=== PATIENT | male | born 1955 | race Caucasian/White ===

== ENCOUNTER → 2016-08-23 | Outpatient (CLI) | payer OTHER, MEDICARE ==
[~2016-08-23] MED LIST: ALBUTEROL; COUMADIN; DUONEB; GFN600TCR; LEVITRA; LNS30CCR; NS.65NA45; PERFOROMIST; PHN100C; PULMICORT; SYMBICORT; TIOT18CA
--- OUTSIDE RECORDS SUMMARY | 2016-08-23 07:49 | XMS REPORT | Continuity of Care Document ---
Author Author [facility] Organization [facility] Address Unknown Phone Unavailable Care Team Providers Care Senior Cost Analyst Name Role Phone PCP Unavailable Source Comments Some departments are not documenting in the electronic medical record. If you do not see the information that you expected, contact Release of Information in the Health Information Management department at [phone] for further assistance in locating additional records.[facility] Active Allergies and Adverse Reactions Not on [...]
[2016-08-23 08:03] LABS: BASOPHILS # (AUTO) 0.1 10^3/uL (0.0-0.1); BASOPHILS % (AUTO) 1 % (0-10); EOSINOPHILS # (AUTO) 0.4 10^3/uL (0.0-0.3); EOSINOPHILS % (AUTO) 5 % (0-10); LYMPHOCYTES # (AUTO) 1.3 X 10^3 (1.0-4.0); LYMPHOCYTES % (AUTO) 16 % (12-44); MEAN CORPUSCULAR HEMOGLOBIN 31 PG (25-34); MEAN CORPUSCULAR HGB CONC 33 G/DL (32-36); MEAN CORPUSCULAR VOLUME 94 FL (80-99); MEAN PLATELET VOLUME 10.1 FL (7.4-10.4); MONOCYTES # (AUTO) 0.9 X 10^3 (0.0-1.0); MONOCYTES % (AUTO) 11 % (0-12); NEUTROPHILS # (AUTO) 5.4 X 10^3 (1.8-7.8); NEUTROPHILS % (AUTO) 68 % (42-75); PLATELET COUNT 244 10^3/uL (130-400); RED BLOOD COUNT 4.82 10^6/uL (4.35-5.85); RED CELL DISTRIBUTION WIDTH 12.9 % (10.0-14.5)
[2016-08-23 08:34] LABS: ALANINE AMINOTRANSFERASE 44 U/L (0-55); ANION GAP 9 MMOL/L (5-14); ASPARTATE AMINO TRANSFERASE 23 U/L (5-34); BILIRUBIN,TOTAL 0.6 MG/DL (0.1-1.0); BLOOD UREA NITROGEN 20 MG/DL (7-18); BUN/CREATININE RATIO 20; CALCIUM 9.2 MG/DL (8.5-10.1); CARBON DIOXIDE 26 MMOL/L (21-32); CHLORIDE 105 MMOL/L (98-107); CHOLESTEROL 165 MG/DL (< 200); CREATININE SERUM 0.98 MG/DL (0.60-1.30); DIRECT LDL 98 MG/DL (1-129); GFR ESTIMATED > 60; GLUCOSE 96 MG/DL (70-105); POTASSIUM 4.7 MMOL/L (3.6-5.0); SODIUM 140 MMOL/L (135-145); TOTAL PROTEIN 6.8 G/DL (6.4-8.2); TRIGLYCERIDES 86 MG/DL (<150); VLDL CHOLESTEROL 17 MG/DL (5-40)
[2016-08-23 08:55] LABS: THYROID STIMULATING HORMONE 1.13 UIU/ML (0.35-4.94)
== END ==
LOC: LAB 07:46
PROVIDERS: ATTEND Internal Medicine
DX: Z00.00 Encounter for general adult medical examination without abnormal findings (principal); Z51.81 Encounter for therapeutic drug level monitoring; E78.00 Pure hypercholesterolemia, unspecified; E78.1 Pure hyperglyceridemia; Z79.899 Other long term (current) drug therapy
CPT/HCPCS: 36415; 80053; 80061; 80185; 84443; 85025

== ENCOUNTER → 2016-08-23 | Outpatient (CLI) | payer OTHER, MEDICARE ==
--- OUTSIDE RECORDS SUMMARY | 2016-08-23 07:44 | XMS REPORT | Continuity of Care Document ---
Author Author [facility] Organization [facility] Address Unknown Phone Unavailable Care Team Providers Care Application Support Administrator Name Role Phone PCP Unavailable Source Comments Some departments are not documenting in the electronic medical record. If you do not see the information that you expected, contact Release of Information in the Health Information Management department at [phone] for further assistance in locating additional records.[facility] Active Allergies and Adverse Reactions Not on File Current Medications Not on file Active Problems Not on file Social History Tobacco Use Types Packs/Day Years Used Date Never Assessed Plan of Care Health Maintenance Due Date Last Done Comments Physical (Comprehensive) 1961 Exam Pertussis Vaccine 1965 Tetanus Vaccine 10/05/1971 Colorectal Cancer 2004 Screening Shingles Vaccine 2014 Influenza Vaccine 03/15/2016 Results from Last 3 Months Not on file
[2016-08-23 09:01] LABS: BILIRUBIN,DIRECT 0.2 MG/DL (0.0-0.3); BILIRUBIN,INDIRECT 0.4 MG/DL; BILIRUBIN,TOTAL 0.6 MG/DL (0.1-1.0); TOTAL PROTEIN 6.8 G/DL (6.4-8.2)
== END ==
LOC: LAB 07:40
PROVIDERS: ATTEND Physician Assistant
DX: E78.2 Mixed hyperlipidemia (principal)
CPT/HCPCS: 36415; 80061; 80076

== ENCOUNTER 2017-01-16 14:12 | Inpatient (IN) | payer OTHER, MEDICARE ==
[~2017-01-16] VITALS: Ht 172.7 cm; Wt 99.8 kg
[~2017-01-16 14:12] MED LIST changes: -PHN100C; +PHN100C PO
[2017-01-16] MEDS ORDERED: NS IV 1000 ML 1,000 ML IV ONE (14:19)
[2017-01-16 14:29] LABS: BASOPHILS % (AUTO) 0 % (0-10); EOSINOPHILS % (AUTO) 0 % (0-10); LYMPHOCYTES # (AUTO) 1.3 X 10^3 (1.0-4.0); LYMPHOCYTES % (AUTO) 10 % (12-44); MEAN CORPUSCULAR HEMOGLOBIN 30 PG (25-34); MEAN CORPUSCULAR HGB CONC 33 G/DL (32-36); MEAN CORPUSCULAR VOLUME 91 FL (80-99); MEAN PLATELET VOLUME 9.9 FL (7.4-10.4); MONOCYTES # (AUTO) 1.5 X 10^3 (0.0-1.0); MONOCYTES % (AUTO) 12 % (0-12); NEUTROPHILS # (AUTO) 9.6 X 10^3 (1.8-7.8); NEUTROPHILS % (AUTO) 77 % (42-75); PLATELET COUNT 290 10^3/uL (130-400); RED CELL DISTRIBUTION WIDTH 13.2 % (10.0-14.5); WHITE BLOOD COUNT 12.5 10^3/uL (4.3-11.0)
[2017-01-16] MEDS ORDERED: RT-ALBUTEROL/IPRATROPIUM 3 ML (DUONEB) VIAL INH ONE (14:30)
[2017-01-16] MEDS ORDERED: ACETAMINOPHEN 500 MG TAB (TYLENOL) PO PRN (14:30)
[2017-01-16] MEDS ORDERED: methylPREDNISolone 125 MG (Solu-MEDROL) VIAL IV STA (14:41)
[2017-01-16 14:42] LABS: INR 1.1 (0.8-1.4)
[2017-01-16] MEDS ORDERED: RT-ALBUTEROL SULF 2.5 MG/3 ML PRE-MIX VIAL INH STA (14:45)
--- NOTE | 2017-01-16 14:52 | ED Respiratory ---
General Chief Complaint: Respiratory Problems Stated Complaint: SOB Source: patient, EMS Exam Limitations: no limitations (VIDAL STAHL MD) History of Present Illness Time seen by provider: 14:12 Initial Comments Here by EMS from Dr. Harvey's office with report of being found to have an oxygen saturation of 77 percent on room air. Patient is not normally on oxygen. For the last month he has been treated for bronchitis/pneumonia. Patient had a fever of 101 at 's office and was placed on oxygen. Overall improving with oxygen but still requiring 4-5 L via nasal cannula to keep O2 sats greater than 90 percent. Patient reports that he's had chills at night time and sweats as well as the fever during the day. Denies nausea or vomiting. Denies chest pain. States breathing treatments haven't helped much. Last albuterol treatment was at 11 a.m. Timing/Duration: week, getting worse Severity: moderate Prior Episodes/Possible Cause: occasional episodes Modifying Factors: Worse With Activity, Improves With Albuterol Nebulizer, Improves With Oxygen, Improves With Rest Associated Symptoms: cough, fever/chills, shortness of breath, wheezing ( VIDAL STAHL MD) Allergies and Home Medications Allergies Coded Allergies: No Known Drug Allergies (Verified , 10/07/07) Home Medications Guaifenesin 600 Mg Tab, (Reported) Lansoprazole 30 Mg Cap, (Reported) Phenytoin Sodium Extended 100 Mg Capsule, (Reported) Tiotropium Mammoth 18 Mcg Cap.w.dev, (Reported) [Coumadin ] , (Reported) [Coumadin] , (Reported) [Duoneb] , (Reported) [Levitra] , (Reported) [Perforomist] , (Reported) [Pro Air Rescue Inhal] , (Reported) [Pulmicort] , (Reported) Constitutional: see HPI, No chills, No fever EENTM: no symptoms reported Respiratory: see HPI, cough, short of breath, wheezing Cardiovascular: no symptoms reported Gastrointestinal: No abdominal pain, No nausea, No vomiting Genitourinary: no symptoms reported Musculoskeletal: no symptoms reported (VIDAL STAHL MD) All Other Systems Reviewed Negative Unless Noted: Yes (VIDAL STAHL MD) Past Tspiyzm-Qaqugv-Yykymy Hx Patient Social History Alcohol Use: Occasionally Uses Recreational Drug Use: No Smoking Status: Former Smoker Type Used: Cigarettes 2nd Hand Smoke Exposure: No Recent Hopitalizations: No (VIDAL STAHL MD) Surgeries HX Surgeries: Yes (IVC filter) Surgeries: Eye Surgery, Tonsillectomy (VIDAL STAHL MD) Respiratory Hx Respiratory Disorders: Yes (HYPERSENSITIVITY PNUEMONITIS) (VIDAL STAHL MD) Cardiovascular Hx Cardiac Disorders: No Cardiac Disorders: Deep Vein Thrombosis (VIDAL STAHL MD) Neurological Hx Neurological Disorders: Yes Neurological Disorders: Seizure Disorder (VIDAL STAHL MD) Reproductive System Hx Reproductive Disorders: No (VIDAL STAHL MD) Genitourinary Hx Genitourinary Disorders: No (VIDAL STAHL MD) Gastrointestinal Hx Gastrointestinal Disorders: Yes (VIDAL STAHL MD) Musculoskeletal Hx Musculoskeletal Disorders: Yes (VIDAL STAHL MD) Endocrine Hx Endocrine Disorders: No (VIDAL STAHL MD) HEENT HX ENT Disorders: No (VIDAL STAHL MD) Psychosocial Hx Psychiatric Problems: Yes (VIDAL STAHL MD) Blood Transfusions Hx Blood Disorders: Yes (VIDAL STAHL MD) Reviewed Nursing Assessment Reviewed/Agree w Nursing PMH: Yes (VIDAL STAHL MD) Physical Exam Vital Signs Vital Sign - Last 12Hours 01/16/17 01/16/17 14:15 14:18 Temp 99.7 Pulse 100 Resp 20 B/P (MAP) 123/78 Pulse Ox 90 O2 Delivery Nasal Cannula O2 Flow Rate 4.00 FiO2 70 (CHANDA DE LOS SANTOS MD) Vital Signs Capillary Refill : (VIDAL STAHL MD) General Appearance: WD/WN, no apparent distress HEENT: PERRL/EOMI, pharynx normal Neck: full range of motion, supple Respiratory: respiratory distress Cardiovascular: regular rate, rhythm, no murmur Gastrointestinal: non tender, soft Extremities: non-tender, normal inspection Neurologic/Psychiatric: alert, oriented x 3 Skin: normal color, warm/dry (VIDAL STAHL MD) Focused Exam Lactic Acid Level Laboratory Tests Test 01/16/17 14:18 Lactic Acid Level 1.41 MMOL/L (0.50-2.00) (CHANDA DE LOS SANTOS MD) Progress/Results/Core Measures Results/Orders Lab Results Laboratory Tests Test 01/16/17 14:18 01/16/17 16:22 Range/Units White Blood Count 12.5 H 4.3-11.0 10^3/uL Red Blood Count 5.00 4.35-5.85 10^6/uL Hemoglobin 15.0 13.3-17.7 G/DL Hematocrit 46 40-54 % Mean Corpuscular Volume 91 80-99 FL Mean Corpuscular Hemoglobin 30 25-34 PG Mean Corpuscular Hemoglobin Concent 33 32-36 G/DL Red Cell Distribution Width 13.2 10.0-14.5 % Platelet Count 290 130-400 10^3/uL Mean Platelet Volume 9.9 7.4-10.4 FL Neutrophils (%) (Auto) 77 H 42-75 % Lymphocytes (%) (Auto) 10 L 12-44 % Monocytes (%) (Auto) 12 0-12 % Eosinophils (%) (Auto) 0 0-10 % Basophils (%) (Auto) 0 0-10 % Neutrophils # (Auto) 9.6 H 1.8-7.8 X 10^3 Lymphocytes # (Auto) 1.3 1.0-4.0 X 10^3 Monocytes # (Auto) 1.5 H 0.0-1.0 X 10^3 Eosinophils # (Auto) 0.0 0.0-0.3 10^3/uL Basophils # (Auto) 0.0 0.0-0.1 10^3/uL Prothrombin Time 14.0 12.2-14.7 SEC INR Comment 1.1 0.8-1.4 Activated Partial Thromboplast Time 34 24-35 SEC Sodium Level 141 135-145 MMOL/L Potassium Level 3.7 3.6-5.0 MMOL/L Chloride Level 107 98-107 MMOL/L Carbon Dioxide Level 22 21-32 MMOL/L Anion Gap 12 5-14 MMOL/L Blood Urea Nitrogen 14 7-18 MG/DL Creatinine 0.94 0.60-1.30 MG/DL Estimat Glomerular Filtration Rate > 60 BUN/Creatinine Ratio 15 Glucose Level 102 70-105 MG/DL Lactic Acid Level 1.41 0.50-2.00 MMOL/L Calcium Level 9.1 8.5-10.1 MG/DL Total Bilirubin 0.6 0.1-1.0 MG/DL Aspartate Amino Transf (AST/SGOT) 30 5-34 U/L Alanine Aminotransferase (ALT/SGPT) 35 0-55 U/L Alkaline Phosphatase 105 40-136 U/L Total Protein 7.6 6.4-8.2 GM/DL Albumin 3.8 3.2-4.5 GM/DL Urine Color YELLOW Urine Clarity SLIGHTLY CLOUDY Urine pH 5 5-9 Urine Specific Manson 1.015 L 1.016-1.022 Urine Protein 2+ H NEGATIVE Urine Glucose (UA) NEGATIVE NEGATIVE Urine Ketones 1+ H NEGATIVE Urine Nitrite NEGATIVE NEGATIVE Urine Bilirubin NEGATIVE NEGATIVE Urine Urobilinogen NORMAL NORMAL MG/DL Urine Leukocyte Esterase 1+ H NEGATIVE Urine RBC (Auto) NEGATIVE NEGATIVE Urine RBC NONE /HPF Urine WBC 0-2 /HPF Urine Crystals NONE /LPF Urine Bacteria FEW H /HPF Urine Casts NONE /LPF Urine Mucus NEGATIVE /LPF Urine Culture Indicated NO (CHANDA DE LOS SANTOS MD) Medications Given in ED Current Medications Medications Dose Ordered Sig/Whitney Route Start Time Stop Time Status Last Admin Dose Admin Albuterol/ Ipratropium 3 ml ONCE ONCE INH 01/16/17 14:30 01/16/17 14:31 DC 01/16/17 14:28 3 ML Sodium Chloride 1,000 ml @ 0 mls/hr Q0M ONCE IV 01/16/17 14:19 01/16/17 14:22 DC 01/16/17 15:17 0 MLS/HR (CHANDA DE LOS SANTOS MD) Vital Signs/I&O Vital Sign - Last 12Hours 01/16/17 01/16/17 01/16/17 01/16/17 14:15 14:18 14:28 14:57 Temp 99.7 Pulse 100 Resp 20 B/P (MAP) 123/78 Pulse Ox 90 98 92 96 O2 Delivery Nasal Cannula Vapotherm Nasal Cannula Vapotherm O2 Flow Rate 4.00 30.00 5.00 30.00 FiO2 70 70 (CHANDA DE LOS SANTOS MD) Progress Note : Progress Note Seen and evaluated. IV, labs, chest x-ray, blood cultures and lactic acid ordered. Patient on 5 L via nasal cannula. This does keep his O2 sat at 90 percent. Duo neb ordered. Patient is not responding very well to oxygen and DuoNeb. Vapotherm initiated and patient had improvement with 7 percent O2 via high flow 30 L. Albuterol treatment and line ordered. Solu-Medrol 125 mg IV ordered. Monitor patient. Patient and EMS did report that he is wanted to go to [place] but he was presented with the ABN performed by EMS and was concerned that there would be cost for this transfer as she would be bypassing this hospital which is right across the street from his doctor's office. Patient opted to come to this ER which is reasonable. (VIDAL STAHL MD) Departure Communication Progress Notes 1600 accepted patient in transfer from Dr. Stahl. 165 after reviewing chest x-ray which shows a rather marked increase in bilateral markings and given his white count respiratory rate and O2 saturation qualifying for Sirs he is to be admitted. I spoke to Dr. Leos who will be the admitting hospitalist and as his PCP and she concurs. SIRS, Sepsis, and Septic Shock Criteria SIRS Criteria: Temp Over 38.0 deg C (100.4 deg F) or Below 36.0 deg C (96.8 deg F): No Heart Rate Over 90: Yes Respiratory Rate Over 20 or CO2 Partial Pressure Below 32: Yes WBC Over 76148, Below 4000, or More than 10% bands: Yes Sepsis Criteria: Suspected or Present Source of Infection: Yes Severe Sepsis Criteria: Organ Dysfunction, Hypotension, or Hypoperfusion: No Septic Shock Criteria: Severe Sepsis with Hypotension, despite adequate fluid resuscitation: No Multiple Organ Dysfunction Syndrome Criteria: Evidence of 2 or More Organs Failing: No Meets Sepsis Criteria. Follow Sepsis Guidelines (CHANDA DE LOS SANTOS MD) Impression Impression: Primary Impression: sepsis/pneumonitis with hypoxia Disposition: ADMITTED INPATIENT Condition: Improved Decision to Admit Reason: Admit from ER (General) Decision to Admit/Date: Jan 16, 2017 Time/Decision to Admit Time: 17:03 (CHANDA DE LOS SANTOS MD) Departure-Patient Inst. Referrals: SHAKIRA LEOS DO (PCP/Family) Primary Care Physician VIDAL STAHL MD Jan 16, 2017 14:51 CHANDA DE LOS SANTOS MD Jan 16, 2017 17:00
[2017-01-16 14:54] LABS: ALANINE AMINOTRANSFERASE 35 U/L (0-55); ALBUMIN 3.8 GM/DL (3.2-4.5); ANION GAP 12 MMOL/L (5-14); ASPARTATE AMINO TRANSFERASE 30 U/L (5-34); BILIRUBIN,TOTAL 0.6 MG/DL (0.1-1.0); BLOOD UREA NITROGEN 14 MG/DL (7-18); BUN/CREATININE RATIO 15; CALCIUM 9.1 MG/DL (8.5-10.1); CARBON DIOXIDE 22 MMOL/L (21-32); CHLORIDE 107 MMOL/L (98-107); CREATININE SERUM 0.94 MG/DL (0.60-1.30); GFR ESTIMATED > 60; GLUCOSE 102 MG/DL (70-105); POTASSIUM 3.7 MMOL/L (3.6-5.0); SODIUM 141 MMOL/L (135-145); TOTAL PROTEIN 7.6 GM/DL (6.4-8.2)
--- NOTE | 2017-01-16 16:21 | Diagnostic Imaging Report ---
INDICATION: Respiratory distress. EXAMINATION: PA and lateral chest. FINDINGS: There is coarse interstitial thickening in both lungs which is new since 08/09/2014. The heart size and pulmonary vascularity are normal. There are no consolidating alveolar infiltrates. There are no effusions or pneumothoraces. IMPRESSION: Coarse thickening of the interstitium in the lungs which could be inflammatory. Dictated by: Dictated on workstation # [id number]
[2017-01-16 16:27] LABS: BILIRUBIN,URINE NEGATIVE (NEGATIVE); KETONES,URINE 1+ (NEGATIVE); LEUKOCYTE ESTERASE ,URINE 1+ (NEGATIVE); NITRITE,URINE NEGATIVE (NEGATIVE); PH,URINE 5 (5-9); PROTEIN,URINE 2+ (NEGATIVE); UROBILINOGEN,URINE NORMAL (NORMAL)
[2017-01-16 16:35] LABS: WBC,URINE 0-2 /HPF
[2017-01-16 18:15] VITALS: BP 137/77
--- OUTSIDE RECORDS SUMMARY | 2017-01-16 18:19 | XMS REPORT | Continuity of Care Document ---
Author Author [facility] Organization [facility] Address Unknown Phone Unavailable Care Team Providers Care Solution Make Up Operator Name Role Phone PCP Unavailable Source Comments Some departments are not documenting in the electronic medical record. If you do not see the information that you expected, contact Release of Information in the Health Information Management department at [phone] for further assistance in locating additional records.[facility] Active Allergies and Adverse Reactions Not on File Current Medications Not on file Active Problems Not on file Social History Tobacco Use Types Packs/Day Years Used Date Never Assessed Plan of Care Health Maintenance Due Date Last Done Comments Hepatitis C Screening 1955 Physical (Comprehensive) 1961 Exam Pertussis Vaccine 1965 Tetanus Vaccine 10/05/1971 Colorectal Cancer 2004 Screening Shingles Vaccine 2014 Influenza Vaccine 03/15/2017 Results from Last 3 Months Not on file
--- OUTSIDE RECORDS SUMMARY | 2017-01-16 18:20 | XMS REPORT ---
Author Author LESLIE RAMIREZ [facility] [employer] Address Unknown Phone Unavailable Care Team Providers Care Actuarial Intern Name Role Phone LESLIE RAMIREZ CP Unavailable Allergies No Known Allergies Problems Problem Type Condition Code Onset Dates Condition Status Assessment Dysthymic disorder F34.1 Active Problem Dysthymic disorder F34.1 Active Medications No Known Medications Procedures Procedure Coding System Code Date Psychotherapy, patient &/family, 45 minutes, established patient CPT-4 51349 January 25, 2016 Results No Known Results Summary Purpose [employer] Submission
--- OUTSIDE RECORDS SUMMARY | 2017-01-16 18:20 | XMS REPORT ---
Author Author JESSICA MARTELL Organization [employer] Address Unknown Phone Unavailable Care Team Providers Care Drying And Winding Supervisor Name Role Phone JESSICA MARTELL Unavailable Allergies No Known Allergies Problems Problem Type Condition ICD-9 Code Onset Dates Condition Status Assessment Dysthymic disorder 300.4 Active Problem Dysthymic disorder 300.4 Active Medications No Known Medications Procedures Procedure Coding System Code Date Psychotherapy, patient &/family, 45 minutes, established patient CPT-4 76574 Mar 17, 2015 Results No Known Results Summary Purpose [employer] Submission
--- OUTSIDE RECORDS SUMMARY | 2017-01-16 18:20 | XMS REPORT ---
Author Author LESLIE RAMIREZ [facility] [employer] Address Unknown Phone Unavailable Care Team Providers Care Brokerage Coordinator Name Role Phone LESLIE RAMIREZ CP Unavailable Allergies No Known Allergies Problems Problem Type Condition Code Onset Dates Condition Status Assessment Dysthymic disorder F34.1 Active Problem Dysthymic disorder F34.1 Active Medications No Known Medications Procedures Procedure Coding System Code Date Psychotherapy, patient &/family, 45 minutes, established patient CPT-4 35248 Aug 04, 2015 Results No Known Results Summary Purpose [employer] Submission
--- OUTSIDE RECORDS SUMMARY | 2017-01-16 18:20 | XMS REPORT | Clinical Summary ---
Author Author User, [employer] [facility] Address Unknown Phone Unavailable Allergies, Adverse Reactions, Alerts Allergy Name Reaction Description Start Date Severity Status Provider No Known Allergies Edwin Johnson Conditions or Problems Problem Name Problem Code Onset Date Status Entry Date Provider Comment Standard Description Annotate ASTHMA 493.9 Correction Paula Mayorga Asthma, unspecified PNEUMONIA 486 Resolved Paula Mayorga Pneumonia, organism unspecified HEALTH SCREENING V70.0 Resolved Paula Mayorga Routine general medical examination at a health care facility SEIZURE 780.3 Resolved Paula Mayorga Convulsions SMOKER 305.1 Resolved Paula Mayorga Tobacco use disorder WHEEZING 786.07 Resolved Paula Mayorga Wheezing CHRONIC AIRWAY OBSTRUCTION (COPD) 496 Active Paula Mayorga Chronic airway obstruction, not elsewhere classified ASTHMA, CHRN OBST W/(ACUTE) EXACERBATION 493.22 Resolved Paula Mayorga Chronic obstructive asthma, with (acute) exacerbation HEMOPTYSIS 786.3 Resolved Paula Mayorga Hemoptysis VACCINE AGAINST STREPTOCOCCUS PNEUMONIAE V03.82 Resolved Paula Mayorga Need for prophylactic vaccination against Streptococcus pneumoniae [pneumococcus] FEVER 780.6 Resolved Paula Mayorga Fever and other physiologic disturbances of temperature regulation HISTORY OF TOBACCO ABUSE V15.82 Active Paula Mayorga Personal history of tobacco use COMPLICATION, RESPIRATORY 997.3 Resolved Paula Mayorga Respiratory complications, not elsewhere classified GRAND MAL SEIZURE 345.10 Resolved Paula Mayorga Generalized convulsive epilepsy, without mention of intractable epilepsy OCCUPATIONAL ASTHMA 505 Resolved Paula Mayorga Pneumoconiosis, unspecified LEG PAIN, LEFT 729.5 Active Paula Mayorga Pain in limb EDEMA LEG 782.3 Active Paula Mayorga Edema DVT 453.40 Active Paula Mayorga Acute venous embolism and thrombosis of unspecified deep vessels of lower extremity FEVER 780.6 Resolved Paula Mayorga Fever and other physiologic disturbances of temperature regulation COUMADIN THERAPY V58.61 Resolved Paula Mayorga Long-term (current) use of anticoagulants TESTOSTERONE DEFICIENCY 257.2 Resolved Paula Mayorga Other testicular hypofunction FEVER 780.6 Resolved Paula Mayorga Fever and other physiologic disturbances of temperature regulation DIARRHEA, ACUTE 787.91 Resolved Paula Mayorga Diarrhea HYPERGLYCEMIA, MILD 790.6 Resolved Paula Mayorga Other abnormal blood chemistry HYPERCHOLESTEROLEMIA 272.0 Active Paula Mayorga Pure hypercholesterolemia HEALTH SCREENING V70.0 Resolved Paula Mayorga Routine general medical examination at a health care facility SINUSITIS, SPHENOIDAL, ACUTE 461.3 Resolved Paula Mayorga Acute sphenoidal sinusitis HYPERTENSION 401.1 Active Paula Mayorga Benign essential hypertension OLECRANON BURSITIS, RIGHT 726.33 Resolved Paula Mayorga Olecranon bursitis TRANSAMINASES, SERUM, ELEVATED 790.4 Resolved Paula Mayorga Nonspecific elevation of levels of transaminase or lactic acid dehydrogenase [LDH] CHRONIC VENOUS HYPERTENSION WITHOUT COMPS 459.30 Active Paula Mayorga Chronic venous hypertension without complications ALLERGIC RHINITIS, SEASONAL 477.0 Resolved Paula Mayorga Allergic rhinitis due to pollen VENTRICULAR HYPERTROPHY, LEFT 429.3 Active Paula Mayorga Cardiomegaly SEIZURE DISORDER, GENERALIZED 780.39 Active Paula Mayorga Other convulsions CELLULITIS AND ABSCESS OF ORAL SOFT TISSUES 528.3 Resolved 12/18 Paula Mayorga Cellulitis and abscess of oral soft tissues BACK PAIN, THORACIC REGION 724.1 Resolved Paula Mayorga Pain in thoracic spine SEBACEOUS CYST, INFECTED 706.2 Resolved Paula Mayorga Sebaceous cyst Medication List Medication Instructions Start Date Stop Date Generic Name NDC Status Provider Patient Instruction VIAGRA 100 MG TABS 1 po prn SILDENAFIL CITRATE [id number] No Longer Active Paula Mayorga ANDROGEL PUMP 20.25 MG/ACT (1.62%) GEL 2 pumps rubbed into skin daily TESTOSTERONE 88860581954 Active Paula Mayorga SPIRIVA HANDIHALER 18 MCG CAPS 1 inhalation daily. TIOTROPIUM BROMIDE MONOHYDRATE 01439655189 Active Paula Mayorga [facility] FISH OIL 1200 MG CPDR 1 PO daily OMEGA-3 FATTY ACIDS 94035888375 Active Paula Mayorga WARFARIN SODIUM 6 MG TABS 1 PO Daily, on Tuesdays and Fridays take with 1 mg to add up to 7mg. WARFARIN SODIUM 93731349497 No Longer Active Paula Mayorga JANTOVEN 6 MG TABS 1 PO daily WARFARIN SODIUM 82028004463 No Longer Active Paula Mayorga ORABASE/KENALOG apply to affected area QID for 7 days ORABASE/KENALOG No Longer Active Paulaoscar Mayorga NORVASC 10 MG TAB 1 PO QD AMLODIPINE BESYLATE 04613500862 Active Paula Mayorga FLONASE 50 MCG/DOSE INHALANT 2 puffs each nostril daily FLONASE 50 MCG/DOSE INHALANT Active Odlays Harman TRIAMCINOLONE ACETONIDE 0.025 % CREA apply daily prn sparingly to affected area TRIAMCINOLONE ACETONIDE (TOP) 72558106026 Active Paulaoscar Mayorga LORTAB 5 5-500 MG TABS 1 to 2 PO Q6hrs prn ACETAMINOPHEN-HYDROCODONE 14125371209 No Longer Active Paula Mayorga SINGULAIR 10 MG TABS 1 PO QD MONTELUKAST SODIUM 24234864756 Active Paula Mayorga NAPROXEN 500 MG TAB 1 PO BID NAPROXEN 59810967100 No Longer Active Paula Mayorga CIPRO 500 MG TAB 1 PO BID for 10 days CIPROFLOXACIN HCL 57549051443 No Longer Active Paula Mayorga ALBUTEROL 90 MCG/ACT AERS 2 puffs Q4-6hrs prn ALBUTEROL 67432848549 No Longer Active Paula Mayorga SUDAFED 30 MG TAB 1 po q 6 hrs prn nasal congestion PSEUDOEPHEDRINE HCL 17790741183 No Longer Active Paula Mayorga AMOXICILLIN 500 MG CAP 1 PO TID AMOXICILLIN 26625062400 No Longer Active Paula BENEDICT'Ochoa NASAL SPRAY (DEXAMETHASONE, GENTAMICIN, SALINE) 2 puffs each nostril TID for [address] ERVIN NASAL SPRAY ( DEXAMETHASONE, GENTAMICIN, SALINE) No Longer Active Paula Mayorga OMEPRAZOLE 20 MG CPDR 1 PO daily OMEPRAZOLE 92002558136 Active Paula Amber Mayorga LEVITRA 20 MG TABS 1 PO PRN VARDENAFIL HCL 10040398560 No Longer Active Paula Amber Mayorga PROAIR HFA 108 (90 BASE) MCG/ACT AERS 2 puffs Q 4 hrs prn ALBUTEROL SULFATE 62794321888 Active Paula Amber Mayorga DILANTIN 100 MG CAPS 4 tabs po QOD and 3 tabs on alternate days PHENYTOIN SODIUM EXTENDED 88908986069 Active Paula Amber Mayorga PREVACID 30 MG CPDR 1 PO daily LANSOPRAZOLE 93037951751 No Longer Active Paula Amber Mayorga COUMADIN 6 MG TABS 6mg everyday but 7mg on . and Sat. WARFARIN SODIUM 71115702582 No Longer Active Paula Amber Mayorga PULMICORT 1 MG/2ML SUSP One neb treatment BID BUDESONIDE (INHALATION) 34141465755 Active Paula Amber Mayorga LOVENOX 100 MG/ML SOLN 1 injection BID (on hold) ENOXAPARIN SODIUM 09068263357 No Longer Active Paula Amber Mayorga PERFOROMIST 20 MCG/2ML NEBU 1 Puff BID FORMOTEROL FUMARATE 14079825760 Active Paula Amber Mayorga COUMADIN 7.5 MG TABS 1 po QOD alternating with 6 mg. WARFARIN SODIUM 71021015352 No Longer Active Paula Amber Mayorga PREDNISONE 10 MG TABS take 3 tabs po x 5 days, then take 2 tabs po x 5 days, then one daily x 5 days PREDNISONE 71276176994 No Longer Active Paula Amber Mayorga AVELOX 400 MG TABS 1 po daily x 10 days MOXIFLOXACIN HCL 83744948038 No Longer Active Paula Amber Mayorga MUCINEX 600 MG TB12 2 po BID GUAIFENESIN 17557041525 Active Paula Amber Mayorga PREDNISONE 20 MG TABS 2 po daily x 10 days PREDNISONE 21461994008 No Longer Active Paula Mayorga ZITHROMAX 250 MG TABS 2 tabs po the first day, then 1 po x 4 days AZITHROMYCIN 85299221142 No Longer Active Paula Mayorga PREDNISONE 20 MG TAB TID x 5 days, BID x 5 days, and QD x 5 days. PREDNISONE 13422172721 No Longer Active Paula Mayorga AUGMENTIN 875-125 MG TAB 1 PO BID for 10 days AMOXICILLIN-POT CLAVULANATE 18959461403 No Longer Active Carlos A [place] SYMBICORT INHALER 2 PUFFS BID SYMBICORT INHALER No Longer Active Paula Mayorga CHANTIX 1 MG TABS 1 po BID VARENICLINE TARTRATE 53197016736 No Longer Active Paula Mayorga ADVAIR DISKUS 250-50 MCG/DOSE MISC 1 Puff BID FLUTICASONE- SALMETEROL 55524666459 No Longer Active Paula Mayorga VICODIN 5-500 MG TABS 1-2 tabs po q 4-6 hrs. prn HYDROCODONE- ACETAMINOPHEN 34310358701 No Longer Active Paula Mayorga NAPROXEN 500 MG TABS 1 po BID NAPROXEN 01318822060 No Longer Active Paula Mayorga NEBULIZER MACHINE W/COMPONENTS as directed NEBULIZER MACHINE W/COMPONENTS No Longer Active Paula Mayorga DUONEB 2.5-0.5 MG/3ML SOLN 1 treatment QID (on hold) ALBUTEROL -IPRATROPIUM 52128069444 Active Odalys Harman CODICLEAR DH 5-100 MG/5ML SYRP 5 cc Po Q4-6prn HYDROCODONE-GUAIFENESIN 96724727528 No Longer Active Paula Mayorga PREDNISONE 20 MG TAB 3 PO daily for 5 days, 2 PO daily for 5 days, 1 PO daily for 5 days PREDNISONE 03039296684 No Longer Active Paula Amber Mayorga LEVAQUIN 500 MG TABS 1 po daily x 14 days LEVOFLOXACIN 56455941072 No Longer Active Paula Amber Mayorga VANTIN 100 MG TABS 1 PO BID CEFPODOXIME PROXETIL 89690425222 No Longer Active Paula Amber Mayorga CIPRO 500 MG TAB 1 PO BID CIPROFLOXACIN HCL 43209449216 No Longer Active Paula Amber Mayorga AUGMENTIN 875-125 MG TABS 1 po BID x 10 days AMOXICILLIN-POT CLAVULANATE 40007989771 No Longer Active Paula Amber Mayorga LEVAQUIN 500 MG TAB 1 PO QD for 7 days LEVOFLOXACIN 00949283119 No Longer Active Paula Mayorga PREDNISONE 20 MG TAB 3 PO daily for 3 days, 2 PO daily for 3 days, 1 PO daily for 3 days PREDNISONE 38085932660 No Longer Active Paula Mayorga Immunizations Vaccine Administration Date Value Standard Description Influenza vaccine given done influenza virus vaccine, unspecified formulation Influenza vaccine given done influenza virus vaccine, unspecified formulation Influenza vaccine given Done influenza virus vaccine, unspecified formulation dT (Diphtheria and Tetanus) booster given [facility] Td( adult) unspecified formulation Vital Signs Date Name Value Unit Range Description blood pressure, diastolic - 8462-4 76 mm[Hg] BP carrillo blood pressure, systolic - 8480-6 142 mm[Hg] BP sys pulse rate E&M - 8867-4 68 /min Heart rate respiratory rate E&M - 9279-1 14 /min Resp rate weight E&M - 3141-9 229 [lb_av] Weight Measured blood pressure, diastolic - 8462-4 94 mm[Hg] BP carrillo blood pressure, systolic - 8480-6 152 mm[Hg] BP sys pulse rate E&M - 8867-4 72 /min Heart rate respiratory rate E&M - 9279-1 14 /min Resp rate weight E&M - 3141-9 235 [lb_av] Weight Measured Diagnostic Results Date Name Value Unit Range Description Clinical Lists Update: CBc,CMP,FLP - Chemistry Estimated Glomerular Filtration Rate (calc) >60 mL/min/1.73m2 glucose, plasma fasting 95 mg/dL albumin, serum 4.0 g/dL alkaline phosphatase, serum 78 U/L urea nitrogen, blood 15 mg/dL calcium, serum 9.8 mg/dL chloride, serum 105 mmol/L cholesterol, serum 201 mg/dL very low density lipoproteins 18 mg/dL sodium, serum 142 mmol/L triglyceride, serum, fasting 91 mg/dL bilirubin, serum, total 0.4 mg/dL alanine aminotransferase (SGPT), serum 58 U/L aspartate aminotransferase (SGOT), serum 27 U/L protein, total, serum 7.3 g/dL potassium, serum 4.8 mmol/L LDL cholesterol, serum 126 mg/dL HDL cholesterol, serum 56 mg/dL creatinine, serum 0.91 mg/dL carbon dioxide, venous blood 26 mmol/L Clinical Lists Update: CBc,CMP,FLP - Hematology hemoglobin, blood 14.9 g/dL platelet count 270 10*3/mm3 erythrocyte (RBC) count 4.76 10*6/mm3 leukocyte count, blood 9.2 10*3/mm3 mean corpuscular volume, RBC 93 fL red blood cell distribution width 12.6 % hematocrit, blood 44 % Clinical Lists Update: CMP,FLP,TSH,DILANTIN - Chemistry Estimated Glomerular Filtration Rate (calc) >60 mL/min/1.73m2 glucose, plasma fasting 96 mg/dL very low density lipoproteins 23 mg/dL sodium, serum 141 mmol/L triglyceride, serum, fasting 117 mg/dL bilirubin, serum, total 0.6 mg/dL alanine aminotransferase (SGPT), serum 44 U/L aspartate aminotransferase (SGOT), serum 25 U/L protein, total, serum 7.7 g/dL potassium, serum 4.7 mmol/L LDL cholesterol, serum 115 mg/dL thyroid stimulating hormone, serum 1.03 u[iU]/mL HDL cholesterol, serum 49 mg/dL creatinine, serum 1.15 mg/dL carbon dioxide, venous blood 27 mmol/L cholesterol, serum 187 mg/dL chloride, serum 106 mmol/L calcium, serum 9.8 mg/dL urea nitrogen, blood 18 mg/dL alkaline phosphatase, serum 71 U/L albumin, serum 4.2 g/dL Clinical Lists Update: CMP,FLP,TSH,DILANTIN - Toxicology phenytoin level, serum 9.4 ug/mL Clinical Lists Update: [facility] 10-06-14 - Chemistry anion gap, serum 12 sodium, serum 140 mmol/L bilirubin, serum, total 0.4 mg/dL alanine aminotransferase (SGPT), serum 48 U/L aspartate aminotransferase (SGOT), serum 30 U/L protein, total, serum 7.1 g/dL potassium, serum 4.5 mmol/L bilirubin, serum, direct 0.1 mg/dL creatinine, serum 1.1 mg/dL carbon dioxide, venous blood 30.0 mmol/L cholesterol, serum 184 mg/dL chloride, serum 103 mmol/L calcium, serum 9.7 mg/dL urea nitrogen, blood 18 mg/dL alkaline phosphatase, serum 75 U/L albumin, serum 4.5 g/dL Estimated Glomerular Filtration Rate (calc) 70 mL/min/1.73m2 glucose, plasma fasting 95 mg/dL Clinical Lists Update: [facility] 10-06-14 - Hematology mean corpuscular volume, RBC 98 fL leukocyte count, blood 10.4 10*3/mm3 erythrocyte (RBC) count 4.86 10*6/mm3 platelet count 260 10*3/mm3 hemoglobin, blood 15.0 g/dL hematocrit, blood 48 % red blood cell distribution width 14.2 % Encounters Code Encounter Date Provider Facility CPT-78699 Ofc Vst, Est Level III 11:05:16 CDT Paula Mayorga DO, FACP CPT-14323 Ofc Vst, Est Level III 20:42:43 CDT Paula Mayorga DO, FACP CPT-50889 Ofc Vst, Est Level III 16:50:33 CDT Paula Mayorga DO, FACP CPT-37399 Ofc Vst, Est Level III 14:15:15 CDT Paula Mayorga DO, FACP CPT-57274 Ofc Vst, Est Level III 14:48:54 CDT Paula Mayorga DO, FACP CPT-85999 Ofc Vst, Est Level IV 10:47:13 CDT Paula Amber Mayorga Paula S Mayorga, DO, FACP CPT-39683 Ofc Vst, Est Level IV 10:35:10 [employer] Paulaoscar Packer Tierra, DO, FACP CPT-33387 Ofc Vst, Est Level IV 10:27:26 CDT Paula Packer Tierra, DO, FACP CPT-53673 Ofc Vst, Est Level IV 11:16:27 CDT Paulaoscar Packer Tierra, DO, FACP CPT-44748 Ofc Vst, Est Level IV 15:04:06 CDT Paulaoscar Packer Tierra, DO, FACP CPT-81346 Ofc Vst, Est Level IV 10:39:16 [employer] Paula Packer Tierra, DO, FACP CPT-93984 Ofc Vst, Est Level IV 09:59:13 CDT Paulaoscar Packer Tierra, DO, FACP CPT-62305 Ofc Vst, Est Level IV 15:55:14 CDT Paulaoscar Packer Tierra, DO, FACP CPT-59485 Ofc Vst, Est Level IV 14:47:27 CDT Odalys [facility] CPT-04133 Ofc Vst, Est Level IV 14:15:47 [employer] Paulaoscar Clark [facility] CPT-15882 Ofc Vst, Est Level IV 14:53:22 CDT Paulaoscar Mayorga [facility] CPT-94569 Ofc Vst, Est Level III 14:10:19 CDT Paulaoscar Packer Tierra, DO, FACP CPT-16974 Ofc Vst, Est Level IV 16:36:07 CDT Paulaoscar Packer Tierra, DO, FACP CPT-73539 Ofc Vst, Est Level V 15:14:01 CDT Paulaoscar Packer Mayorga, DO, FACP CPT-18244 Ofc Vst, Est Level IV 10:25:35 [employer] Paula Packer Mayorga, DO, FACP CPT-55239 Ofc Vst, Est Level IV 15:17:28 [employer] Paula Packer Tierra, DO, FACP CPT-62101 Ofc Vst, Est Level V 16:24:05 [employer] Paula Mayorga [facility] CPT-54979 Ofc Vst, Est Level IV 11:15:57 [employer] Paula Packer Tierra, DO, FACP CPT-09890 Ofc Vst, Est Level IV 11:40:27 CDT Paula Packer Tierra, DO, FACP CPT-76864 Ofc Vst, Est Level IV 10:16:21 CDT Paula Amber Packer Tierra, DO, FACP CPT-96444 Ofc Vst, Est Level IV 09:46:44 CDT Paula Amber Packer Tierra, DO, FACP CPT-44002 Ofc Vst, Est Level IV 09:35:25 CDT Paulaoscar Packer Tierra, DO, FACP CPT-00369 Ofc Vst, Est Level III 16:03:27 CDT Paulaoscar Packer Tierra, DO, FACP CPT-85306 Ofc Vst, Est Level IV 12:04:03 CDT Paula Amber Packer Tierra, DO, FACP CPT-73812 Ofc Vst, Est Level IV 11:26:02 CDT Paulaoscar Packer Tierra, DO, FACP CPT-88993 Ofc Vst, Est Level IV 09:39:06 [employer] Paula Packer Tierra, DO, FACP CPT-16839 Ofc Vst, Est Level IV 09:44:42 CDT Paula Amber Rahmanner Paula Ochoa Mayorga, DO, FACP CPT-44531 Ofc Vst, Est Level IV 09:49:54 CDT Paula Amber Rahmanner Paula S Mayorga, DO, FACP CPT-80682 Ofc Vst, Est Level IV 09:57:12 CDT Paula Amber Mayorga Paula Ochoa Mayorga, DO, FACP CPT-02924 Ofc Vst, Est Level III 11:58:15 CDT Paula Ambercharlene Mayorga [facility] CPT-01903 Ofc Vst, Est Level IV 11:15:16 CDT Paula Ambercharlene Mayorga [facility] CPT-21271 Ofc Vst, Est Level IV 09:27:29 CDT Paula Amber Mayorga [facility] CPT-88811 Ofc Vst, Est Level IV 10:07:19 CDT Paula Ambercharlene Mayorga [facility] CPT-14480 Ofc Vst, Est Level IV 15:02:40 CDT Paula Amber Mayorga [facility] CPT-96930 Ofc Vst, Est Level IV 16:32:27 CDT Paula Amber Mayorga [facility] CPT-54035 Ofc Vst, Est Level IV 16:23:58 CDT [facility] Amber Mayorga [facility] CPT-48772 Ofc Vst, New Level IV 16:09:53 CDT [facility] Amber Mayorga [facility] Procedures Code Procedure Name Date Entry Date Standard Description CPT-50143 Preventive, Est, (40-64) 20:16:03 [employer] CPT-G8445 E-Prescribing Not sent due to no medication given 16:50: 33 CDT CPT-G8445 E-Prescribing Not sent due to no medication given 14:53: 01 [employer] CPT-G8445 E-Prescribing Not sent due to no medication given 14:15: 15 CDT CPT-63124 Administration of 1st dose vaccine 15:02:40 CDT CPT-25860 Injection, Pneumovax 15:02:40 CDT
--- OUTSIDE RECORDS SUMMARY | 2017-01-16 18:23 | XMS REPORT ---
Author Author LESLIE RAMIREZ [facility] e[employer] Address Unknown Phone Unavailable Care Team Providers Care Breaker Tender Name Role Phone LESLIE RAMIREZ CP Unavailable Allergies No Known Allergies Problems Problem Type Condition Code Onset Dates Condition Status Assessment Dysthymic disorder F34.1 Active Problem Dysthymic disorder F34.1 Active Medications No Known Medications Procedures Procedure Coding System Code Date Psychotherapy, patient &/family, 45 minutes, established patient CPT-4 79217 May 31, 2016 Results No Known Results Summary Purpose eClinical[employer] Submission
--- OUTSIDE RECORDS SUMMARY | 2017-01-16 18:23 | XMS REPORT ---
Author Author LESLIE RAMIREZ [facility] e[employer] Address Unknown Phone Unavailable Care Team Providers Care Web Developer Programmer Name Role Phone LESLIE RAMIREZ CP Unavailable Allergies No Known Allergies Problems Problem Type Condition Code Onset Dates Condition Status Assessment Dysthymic disorder F34.1 Active Problem Dysthymic disorder F34.1 Active Medications No Known Medications Procedures Procedure Coding System Code Date Psychotherapy, patient &/family, 45 minutes, established patient CPT-4 00401 Jun 24, 2015 Results No Known Results Summary Purpose eClinicalWorks Submission
--- OUTSIDE RECORDS SUMMARY | 2017-01-16 18:23 | XMS REPORT | Clinical Summary ---
Author Author User, [employer] Organization Replaced By [facility] [place] Address Unknown Phone Unavailable Allergies, Adverse Reactions, [...] MG TABS 1 po prn SILDENAFIL CITRATE [id number] No Longer Active Paula Mayorga ANDROGEL PUMP 20.25 MG/ACT (1.62%) GEL 2 pumps rubbed into skin daily TESTOSTERONE 67482141954 Active Paula Mayorga SPIRIVA HANDIHALER 18 MCG CAPS 1 inhalation daily. TIOTROPIUM BROMIDE MONOHYDRATE 80741379710 Active Paula Mayorga [facility] FISH OIL 1200 MG CPDR 1 PO daily OMEGA-3 FATTY ACIDS 17522582217 Active Paula Mayorga WARFARIN SODIUM 6 MG TABS 1 PO Daily, on Tuesdays and Fridays take with 1 mg to add up to 7mg. WARFARIN SODIUM 79080350426 No Longer Active Paula Mayorga JANTOVEN 6 MG TABS 1 PO daily WARFARIN SODIUM 49017467175 No Longer Active Paula Mayorga ORABASE/KENALOG apply to affected area QID for 7 days ORABASE/KENALOG No Longer Active Paulaoscar Mayorga NORVASC 10 MG TAB 1 PO QD AMLODIPINE BESYLATE 66249877630 Active Paula Mayorga FLONASE 50 MCG/DOSE INHALANT 2 puffs each nostril daily FLONASE 50 MCG/DOSE INHALANT Active Odalys Harman TRIAMCINOLONE ACETONIDE 0.025 % CREA apply daily prn sparingly to affected area TRIAMCINOLONE ACETONIDE (TOP) 81705319257 Active Paulaoscar Mayorga LORTAB 5 5-500 MG TABS 1 to 2 PO Q6hrs prn ACETAMINOPHEN-HYDROCODONE 42240436409 No Longer Active Paula Mayorga SINGULAIR 10 MG TABS 1 PO QD MONTELUKAST SODIUM 98250582433 Active Paula Mayorga NAPROXEN 500 MG TAB 1 PO BID NAPROXEN 53470948476 No Longer Active Paula Mayorga CIPRO 500 MG TAB 1 PO BID for 10 days CIPROFLOXACIN HCL 98295120910 No Longer Active Paula Mayorga ALBUTEROL 90 MCG/ACT AERS 2 puffs Q4-6hrs prn ALBUTEROL 08498578630 No Longer Active Paula Mayorga SUDAFED 30 MG TAB 1 po q 6 hrs prn nasal congestion PSEUDOEPHEDRINE HCL 64741359594 No Longer Active Paula Mayorga AMOXICILLIN 500 MG CAP 1 PO TID AMOXICILLIN 60379282855 No Longer Active Paula BENEDICT'Ochoa NASAL SPRAY (DEXAMETHASONE, GENTAMICIN, SALINE) 2 puffs each nostril TID for [address] ERVIN NASAL SPRAY ( DEXAMETHASONE, GENTAMICIN, SALINE) No Longer Active Paula Mayorga OMEPRAZOLE 20 MG CPDR 1 PO daily OMEPRAZOLE 43182013812 Active Paula Amber Mayorga LEVITRA 20 MG TABS 1 PO PRN VARDENAFIL HCL 53230579378 No Longer Active Paula Amber Mayorga PROAIR HFA 108 (90 BASE) MCG/ACT AERS 2 puffs Q 4 hrs prn ALBUTEROL SULFATE 89190171846 Active Paula Amber Mayorga DILANTIN 100 MG CAPS 4 tabs po QOD and 3 tabs on alternate days PHENYTOIN SODIUM EXTENDED 58384124804 Active Paula Amber Mayorga PREVACID 30 MG CPDR 1 PO daily LANSOPRAZOLE 26089821462 No Longer Active Paula Amber Mayorga COUMADIN 6 MG TABS 6mg everyday but 7mg on . and Sat. WARFARIN SODIUM 79742009677 No Longer Active Paula Amber Mayorga PULMICORT 1 MG/2ML SUSP One neb treatment BID BUDESONIDE (INHALATION) 30487106395 Active Paula Amber Mayorga LOVENOX 100 MG/ML SOLN 1 injection BID (on hold) ENOXAPARIN SODIUM 81667626132 No Longer Active Paula Amber Mayorga PERFOROMIST 20 MCG/2ML NEBU 1 Puff BID FORMOTEROL FUMARATE 35646399660 Active Paula Amber Mayorga COUMADIN 7.5 MG TABS 1 po QOD alternating with 6 mg. WARFARIN SODIUM 71807270426 No Longer Active Paula Amber Mayorga PREDNISONE 10 MG TABS take 3 tabs po x 5 days, then take 2 tabs po x 5 days, then one daily x 5 days PREDNISONE 55240491603 No Longer Active Paula Amber Mayorga AVELOX 400 MG TABS 1 po daily x 10 days MOXIFLOXACIN HCL 53271112430 No Longer Active Paula Amber Mayorga MUCINEX 600 MG TB12 2 po BID GUAIFENESIN 75708597851 Active Paula Amber Mayorga PREDNISONE 20 MG TABS 2 po daily x 10 days PREDNISONE 58724950919 No Longer Active Paula Mayorga ZITHROMAX 250 MG TABS 2 tabs po the first day, then 1 po x 4 days AZITHROMYCIN 10189555919 No Longer Active Paula Mayorga PREDNISONE 20 MG TAB TID x 5 days, BID x 5 days, and QD x 5 days. PREDNISONE 59499062836 No Longer Active Paula Mayorga AUGMENTIN 875-125 MG TAB 1 PO BID for 10 days AMOXICILLIN-POT CLAVULANATE 76605262626 No Longer Active Carlos A [place] SYMBICORT INHALER 2 PUFFS BID SYMBICORT INHALER No Longer Active Paula Mayorga CHANTIX 1 MG TABS 1 po BID VARENICLINE TARTRATE 79447099884 No Longer Active Paula Mayorga ADVAIR DISKUS 250-50 MCG/DOSE MISC 1 Puff BID FLUTICASONE- SALMETEROL 26310405815 No Longer Active Paula Mayorga VICODIN 5-500 MG TABS 1-2 tabs po q 4-6 hrs. prn HYDROCODONE- ACETAMINOPHEN 98722515599 No Longer Active Paula Mayorga NAPROXEN 500 MG TABS 1 po BID NAPROXEN 64173548633 No Longer Active Paula Mayorga NEBULIZER MACHINE W/COMPONENTS as directed NEBULIZER MACHINE W/COMPONENTS No Longer Active Paula Mayorga DUONEB 2.5-0.5 MG/3ML SOLN 1 treatment QID (on hold) ALBUTEROL -IPRATROPIUM 48599981203 Active Odalys Harman CODICLEAR DH 5-100 MG/5ML SYRP 5 cc Po Q4-6prn HYDROCODONE-GUAIFENESIN 09934586737 No Longer Active Paula Mayorga PREDNISONE 20 MG TAB 3 PO daily for 5 days, 2 PO daily for 5 days, 1 PO daily for 5 days PREDNISONE 35441947551 No Longer Active Paula Amber Mayorga LEVAQUIN 500 MG TABS 1 po daily x 14 days LEVOFLOXACIN 81861617991 No Longer Active Paula Amber Mayorga VANTIN 100 MG TABS 1 PO BID CEFPODOXIME PROXETIL 25068615441 No Longer Active Paula Amber Mayorga CIPRO 500 MG TAB 1 PO BID CIPROFLOXACIN HCL 71290871275 No Longer Active Paula Amber Mayorga AUGMENTIN 875-125 MG TABS 1 po BID x 10 days AMOXICILLIN-POT CLAVULANATE 69579268249 No Longer Active Paula Amber Mayorga LEVAQUIN 500 MG TAB 1 PO QD for 7 days LEVOFLOXACIN 86488234804 No Longer Active Paula Mayorga PREDNISONE 20 MG TAB 3 PO daily for 3 days, 2 PO daily for 3 days, 1 PO daily for 3 days PREDNISONE 36903721634 No Longer Active Paula Mayorga Immunizations Vaccine Administration Date Value Standard Description Influenza vaccine given done influenza virus vaccine, unspecified formulation Influenza vaccine given done influenza virus vaccine, unspecified formulation Influenza vaccine given Done influenza virus vaccine, unspecified formulation dT (Diphtheria and Tetanus) booster given [facility] Dept. Td( adult) unspecified formulation Vital [...] Description Clinical Lists Update: CBc,CMP,FLP - Chemistry albumin, serum 4.0 g/dL Estimated Glomerular Filtration Rate (calc) >60 mL/min/1.73m2 urea nitrogen, blood 15 mg/dL calcium, serum 9.8 mg/dL chloride, serum 105 mmol/L cholesterol, serum 201 mg/dL carbon dioxide, venous blood 26 mmol/L creatinine, serum 0.91 mg/dL HDL cholesterol, serum 56 mg/dL LDL cholesterol, serum 126 mg/dL potassium, serum 4.8 mmol/L protein, total, serum 7.3 g/dL aspartate aminotransferase (SGOT), serum 27 U/L alanine aminotransferase (SGPT), serum 58 U/L bilirubin, serum, total 0.4 mg/dL triglyceride, serum, fasting 91 mg/dL sodium, serum 142 mmol/L very low density lipoproteins 18 mg/dL glucose, plasma fasting 95 mg/dL alkaline phosphatase, serum 78 U/L Clinical Lists Update: CBc,CMP,FLP - Hematology hematocrit, blood 44 % hemoglobin, blood 14.9 g/dL platelet count 270 10*3/mm3 erythrocyte (RBC) count 4.76 10*6/mm3 leukocyte count, blood 9.2 10*3/mm3 mean corpuscular volume, RBC 93 fL red blood cell distribution width 12.6 % Clinical Lists Update: CMP,FLP,TSH,DILANTIN - Chemistry creatinine, serum 1.15 mg/dL albumin, serum 4.2 g/dL thyroid stimulating hormone, serum 1.03 u[iU]/mL LDL cholesterol, serum 115 mg/dL potassium, serum 4.7 mmol/L protein, total, serum 7.7 g/dL aspartate aminotransferase (SGOT), serum 25 U/L alanine aminotransferase (SGPT), serum 44 U/L bilirubin, serum, total 0.6 mg/dL triglyceride, serum, fasting 117 mg/dL sodium, serum 141 mmol/L very low density lipoproteins 23 mg/dL glucose, plasma fasting 96 mg/dL Estimated Glomerular Filtration Rate (calc) >60 mL/min/1.73m2 HDL cholesterol, serum 49 mg/dL carbon dioxide, venous blood 27 mmol/L cholesterol, serum 187 mg/dL chloride, serum 106 mmol/L calcium, serum 9.8 mg/dL urea nitrogen, blood 18 mg/dL alkaline phosphatase, serum 71 U/L Clinical Lists Update: CMP,FLP,TSH,DILANTIN - Toxicology phenytoin level, serum 9.4 ug/mL Encounters Code Encounter Date Provider Facility CPT-05695 Ofc Vst, Est Level III 11:05:16 CDT Paula Mayorga DO, FACP CPT-13009 Ofc Vst, Est Level III 20:42:43 CDT Paula Mayorga DO, FACP CPT-80088 Ofc Vst, Est Level III 16:50:33 CDT Paula Mayorga DO, FACP CPT-04056 Ofc Vst, Est Level III 14:15:15 CDT Paulaoscar Packer Mayorga, DO, FACP CPT-90021 Ofc Vst, Est Level III 14:48:54 CDT Paula Rahmanner, DO, FACP CPT-67763 Ofc Vst, Est Level IV 10:47:13 CDT Apulaoscar Packer Mayorga, DO, FACP CPT-44048 Ofc Vst, Est Level IV 10:35:10 NIGHT FILLER Paula Packer Mayorga, DO, FACP CPT-85062 Ofc Vst, Est Level IV 10:27:26 CDT Paula Packer Mayorga, DO, FACP CPT-13273 Ofc Vst, Est Level IV 11:16:27 CDT Paulaoscar Packer Mayorga, DO, FACP CPT-75048 Ofc Vst, Est Level IV 15:04:06 CDT Paulaoscar Packer Mayorga, DO, FACP CPT-91617 Ofc Vst, Est Level IV 10:39:16 NIGHT FILLER Paula Rahmanner, DO, FACP CPT-15779 Ofc Vst, Est Level IV 09:59:13 CDT Puala Packer Mayorga, DO, FACP CPT-26626 Ofc Vst, Est Level IV 15:55:14 CDT Paula Packer Mayorga, DO, FACP CPT-57880 Ofc Vst, Est Level IV 14:47:27 CDT Odalys Harman [facility] CPT-00122 Ofc Vst, Est Level IV 14:15:47 NIGHT FILLER Paula Mayorga [facility] CPT-64141 Ofc Vst, Est Level IV 14:53:22 CDT Paulaoscar Mayorga [facility] CPT-02341 Ofc Vst, Est Level III 14:10:19 CDT Paulaoscar Packer Mayorga, DO, FACP CPT-19701 Ofc Vst, Est Level IV 16:36:07 CDT Paula Amber Packer Mayorga, DO, FACP CPT-43849 Ofc Vst, Est Level V 15:14:01 CDT Paula Amber Packer Mayorga, DO, FACP CPT-74511 Ofc Vst, Est Level IV 10:25:35 NIGHT FILLER Paulaoscar Packer Mayorga, DO, FACP CPT-13718 Ofc Vst, Est Level IV 15:17:28 NIGHT FILLER Paula Packer Tierra, DO, FACP CPT-69727 Ofc Vst, Est Level V 16:24:05 NIGHT FILLER Paulaoscar Mayorga [facility] CPT-92276 Ofc Vst, Est Level IV 11:15:57 NIGHT FILLER Paulaoscar Packer Tierra, DO, FACP CPT-65024 Ofc Vst, Est Level IV 11:40:27 CDT Paulaoscar Packer Tierra, DO, FACP CPT-63351 Ofc Vst, Est Level IV 10:16:21 CDT Paulaoscar Packer Tierra, DO, FACP CPT-21574 Ofc Vst, Est Level IV 09:46:44 CDT Paula Amber Packer Tierra, DO, FACP CPT-18342 Ofc Vst, Est Level IV 09:35:25 CDT Paula Amber Rahmanner Paula Packer Mayorga, DO, FACP CPT-89822 Ofc Vst, Est Level III 16:03:27 CDT Paulaoscar Rahmanner Paula Packer Tierra, DO, FACP CPT-38462 Ofc Vst, Est Level IV 12:04:03 CDT Paulaoscar Clark Tierra Paulaoscar Mayorga, DO, FACP CPT-75476 Ofc Vst, Est Level IV 11:26:02 CDT Paula Amber Rahmanner Paulaoscar Mayorga, DO, FACP CPT-56937 Ofc Vst, Est Level IV 09:39:06 NIGHT FILLER Apula Amber Tierra Mayorga, DO, FACP CPT-95613 Ofc Vst, Est Level IV 09:44:42 CDT Paula Amber Rahmanner Paulaoscar Mayorga, DO, FACP CPT-92973 Ofc Vst, Est Level IV 09:49:54 CDT Paula Amber Tierra Mayorga, DO, FACP CPT-55584 Ofc Vst, Est Level IV 09:57:12 CDT Paula Amber Tierra Mayorga, DO, FACP CPT-63192 Ofc Vst, Est Level III 11:58:15 CDT Paula Amber Mayorga [facility] [place] CPT-94023 Ofc Vst, Est Level IV 11:15:16 CDT Paulaoscar Mayorga [facility] [place] CPT-12827 Ofc Vst, Est Level IV 09:27:29 CDT Paula Mayorga [facility] [place] CPT-21656 Ofc Vst, Est Level IV 10:07:19 CDT Paulaoscar Mayorga [facility] [place] CPT-74691 Ofc Vst, Est Level IV 15:02:40 CDT Paula Amber Mayorga [facility] [place] CPT-39259 Ofc Vst, Est Level IV 16:32:27 CDT Paula Mayorga [facility] [place] CPT-98275 Ofc Vst, Est Level IV 16:23:58 CDT Paula Mayorga [facility] [place] CPT-01799 Ofc Vst, New Level IV 16:09:53 CDT Paulaoscar Mayorga [facility] [place] Procedures Code Procedure Name Date Entry Date Standard Description CPT-14138 Preventive, Est, (40-64) 20:16:03 NIGHT FILLER CPT-G8445 E-Prescribing Not sent due to no medication given 16:50: 33 CDT CPT-G8445 E-Prescribing Not sent due to no medication given 14:53: 01 NIGHT FILLER CPT-G8445 E-Prescribing Not sent due to no medication given 14:15: 15 CDT CPT-45948 Administration of 1st dose vaccine 15:02:40 CDT CPT-40301 Injection, Pneumovax 15:02:40 CDT
--- OUTSIDE RECORDS SUMMARY | 2017-01-16 18:23 | XMS REPORT ---
Author Author LESLIE RAMIREZ [facility] [employer] Address Unknown Phone Unavailable Care Team Providers Care Log Snaker Name Role Phone LESLIE RAMIREZ CP Unavailable Allergies No Known Allergies Problems Problem Type Condition Code Onset Dates Condition Status Assessment Dysthymic disorder F34.1 Active Problem Dysthymic disorder F34.1 Active Medications No Known Medications Procedures Procedure Coding System Code Date Psychotherapy, patient &/family, 45 minutes, established patient CPT-4 73740 November 03, 2015 Results No Known Results Summary Purpose [employer] Submission
--- OUTSIDE RECORDS SUMMARY | 2017-01-16 18:23 | XMS REPORT | Continuity of Care Document ---
Author Author [facility] Address Unknown Phone Unavailable Allergies Active Description Code Type Severity Reaction Onset Reported/Identified Relationship to Patient Clinical Status Yes No Known Drug Allergies [id number] Drug Allergy Unknown N/ A 10/07/2007 Medications Problems Date Dx Coded Attending Type Code Diagnosis Diagnosed By 05/23/2011 Ot V58.61 ANTICOAGULANTS,LT,CURRENT USE 05/23/2011 Ot V58.83 ENCOUNTER FOR THERAPEUTIC DRUG MONITORIN 11/06/2011 Ot V58.61 ANTICOAGULANTS,LT,CURRENT USE 11/06/2011 Ot V58.83 ENCOUNTER FOR THERAPEUTIC DRUG MONITORIN 04/29/2012 Ot V58.61 ANTICOAGULANTS,LT,CURRENT USE 04/29/2012 Ot V58.83 ENCOUNTER FOR THERAPEUTIC DRUG MONITORIN 11/13/2012 Ot V58.61 ANTICOAGULANTS,LT,CURRENT USE 11/13/2012 Ot V58.83 ENCOUNTER FOR THERAPEUTIC DRUG MONITORIN 02/15/2013 YASMINE RAVI MD Ot V58.61 ANTICOAGULANTS,LT,CURRENT USE 02/15/2013 YASMINE RAVI MD Ot V58.83 ENCOUNTER FOR THERAPEUTIC DRUG MONITORIN 05/25/2013 YASMINE RAVI MD Ot V58.61 ANTICOAGULANTS,LT,CURRENT USE 05/25/2013 YASMINE RAVI MD Ot V58.83 ENCOUNTER FOR THERAPEUTIC DRUG MONITORIN 11/06/2013 ASIA MALAVE PHD 300.4 MO DYSTHYMIC DISORDER 11/06/2013 ASIA MALAVE PHD 300.4 MO DYSTHYMIC DISORDER 11/06/2013 ASIA MALAVE PHD 300.4 MO DYSTHYMIC DISORDER 11/06/2013 ASIA MALAVE PHD 300.4 MO DYSTHYMIC DISORDER 11/06/2013 ASIA MALAVE PHD 300.4 MO DYSTHYMIC DISORDER 11/06/2013 ASIA MALAVE PHD 300.4 MO DYSTHYMIC DISORDER 11/06/2013 ASIA MALAVE PHD 300.4 MO DYSTHYMIC DISORDER 11/06/2013 ASIA MALAVE PHD 300.4 MO DYSTHYMIC DISORDER 11/06/2013 FRIEDA PHD, ASIA Lambert 300.4 MO DYSTHYMIC DISORDER 11/06/2013 FRIEDA PHD, ASIA Lambert 300.4 MO DYSTHYMIC DISORDER 11/06/2013 FRIEDA TRUJILLO, ASIA Lambert 300.4 MO DYSTHYMIC DISORDER 11/06/2013 FRIEDA PHD, ASIA Lambert 300.4 MO DYSTHYMIC DISORDER 11/06/2013 FRIEDA TRUJILLO, ASIA Lambert 300.4 MO DYSTHYMIC DISORDER 11/06/2013 JAYSHREE TRUJILLO, JESSICA Stoddard 300.4 MO DYSTHYMIC DISORDER 11/06/2013 JAYSHREE TRUJILLO, JESSICA Stoddard 300.4 MO DYSTHYMIC DISORDER 11/11/2013 HENRIQUE TERRAZAS Ot 327.23 OBSTRUCTIVE SLEEP APNEA (ADULT) ( PEDIATR 11/11/2013 HENRIQUE TERRAZASP Ot 785.0 TACHYCARDIA NOS 03/01/2014 RJ MATAMOROS, SUHA Phan Ot 327.23 OBSTRUCTIVE SLEEP APNEA (ADULT) (PEDIATR 03/01/2014 RJ MATAMOROS, SUHA Phan Ot 401.9 HYPERTENSION NOS 03/01/2014 RJ MATAMOROS, SUHA Phan Ot 496 CHR AIRWAY OBSTRUCT NEC 07/02/2014 BREONNA MATAMOROS, YASMINE S Ot 453.40 07/12/2014 BREONNA MATAMOROS, YASMINE S Ot 453.40 07/29/2014 LEOS DO, SHAKIRA Ot 272.0 07/29/2014 LEOS DO, SHAKIRA Ot 401.1 07/29/2014 LEOS DO, SHAKIRA Ot 496 07/29/2014 LEOS DO, SHAKIRA Ot V58.69 07/29/2014 LEOS DO, SHAKIRA Ot V58.83 07/29/2014 LEOS DO, SHAKIRA Ot V70.0 08/04/2014 BREONNA MATAMOROS, YASMINE S Ot 453.40 08/11/2014 BREONNA MATAMOROS, YASMINE S Ot 493.20 08/19/2014 LEOS DO, SHAKIRA Ot 272.0 08/19/2014 LEOS DO, SHAKIRA Ot 401.1 08/19/2014 LEOS DO, SHAKIRA Ot 496 08/19/2014 LEOS DO, SHAKIRA Ot V58.69 08/19/2014 LEOS DO, SHAKIRA Ot V58.83 08/19/2014 LEOS DO, SHAKIRA Ot V70.0 09/03/2014 RJ MATAMOROS, SUHA Phan Ot 327.23 09/03/2014 RJ MATAMOROS, SUHA Phan Ot 401.9 09/03/2014 RJ MATAMOROS, SUHA Phan Ot 429.3 09/03/2014 RJ MATAMOROS, SUHA Phan Ot 786.09 12/11/2014 RJ MATAMOROS, SUHA Phan Ot 327.23 12/11/2014 RJ MATAMOROS, SUHA Phan Ot 401.9 12/11/2014 RJ MATAMOROS, SUHA Phan Ot 429.3 12/11/2014 RJ MATAMOROS, SUHA Phan Ot 786.09 01/04/2015 LEOS DO, SHAKIRA Ot V01.1 02/23/2015 LEOS DO, SHAKIRA Ot 272.0 02/23/2015 LEOS DO, SHAKIRA Ot 401.1 02/23/2015 LEOS DO, SHAKIRA Ot 429.3 02/23/2015 LEOS DO, SHAKIRA Ot 453.40 02/23/2015 LEOS DO, SHAKIRA Ot 459.30 02/23/2015 LEOS DO, SHAKIRA Ot 496 02/23/2015 LEOS DO, SHAKIRA Ot 729.5 02/23/2015 LEOS DO, SHAKIRA Ot 780.39 02/23/2015 LEOS DO, SHAKIRA Ot 782.3 02/23/2015 LEOS DO, SHAKIRA Ot V15.82 02/23/2015 LEOS DO, SHAKIRA Ot V58.69 02/23/2015 LEOS DO, SHAKIRA Ot V70.0 03/17/2015 BREONNA MATAMOROS, YASMINE Packer Ot 453.40 03/01/2016 DAFNE DO SHAKIRA Ot E78.0 PURE HYPERCHOLESTEROLEMIA 03/01/2016 DAFNE FRAIRE SHAKIRA Ot 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 03/01/2016 DAFNE FRAIRE SHAKIRA Ot Z00.00 ENCNTR FOR GENERAL ADULT MEDICAL EXAM W03/01/2016 DAFNE FRAIRE SHAKIRA Ot Z51.81 ENCOUNTER FOR THERAPEUTIC DRUG LEVEL MON 03/01/2016 DAFNE FRAIRE SHAKIRA Ot Z79.899 OTHER ALF (CURRENT) DRUG THERAPY 03/23/2016 DAFNE FRAIRE SHAKIRA Ot E78.0 PURE HYPERCHOLESTEROLEMIA 03/23/2016 DAFNE FRAIRE SHAKIRA Ot 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 03/23/2016 SHAKIRA LEOS DO Ot Z00.00 ENCNTR FOR GENERAL ADULT MEDICAL EXAM W03/23/2016 SHAKIRA LEOS DO Ot Z51.81 ENCOUNTER FOR THERAPEUTIC DRUG LEVEL MON 03/23/2016 SHAKIRA LEOS DO Ot Z79.899 OTHER HOME MORTGAGE DISCLOSURE ACT SPECIALIST (CURRENT) DRUG THERAPY 06/18/2016 Ot 496 CHR AIRWAY OBSTRUCT NEC 08/23/2016 Ot V58.61 08/23/2016 Ot V58.83 08/23/2016 Ot 453.40 ACUTE VENOUS EMBOLISM THROMBOSIS UNSP 08/23/2016 Ot V58.61 ANTICOAGULANTS,LT,CURRENT USE 08/23/2016 Ot V58.83 ENCOUNTER FOR THERAPEUTIC DRUG MONITORIN 08/23/2016 Ot 272.0 PURE HYPERCHOLESTEROLEM 08/23/2016 Ot 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 08/23/2016 Ot 401.1 BENIGN HYPERTENSION 08/23/2016 Ot 429.3 CARDIOMEGALY 08/23/2016 Ot 496 CHR AIRWAY OBSTRUCT NEC 08/23/2016 Ot 790.4 ELEV TRANSAMINASE/LDH 08/23/2016 Ot V58.61 ANTICOAGULANTS,LT,CURRENT USE 08/23/2016 Ot 272.4 HYPERLIPIDEMIA NEC/NOS 08/23/2016 Ot 401.9 HYPERTENSION NOS 08/23/2016 Ot 257.2 TESTICULAR HYPOFUNC NEC 08/23/2016 Ot 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 08/23/2016 Ot 401.1 BENIGN HYPERTENSION 08/23/2016 Ot 790.29 OTHER ABNORMAL GLUCOSE 08/23/2016 Ot 496 CHR AIRWAY OBSTRUCT NEC 08/23/2016 RJ MATAMOROS, SUHA Phan Ot 272.4 HYPERLIPIDEMIA NEC/NOS 08/23/2016 YASMINE RAVI MD S Ot 453.40 ACUTE VENOUS EMBOLISM THROMBOSIS UNSP 08/23/2016 SHAKIRA LEOS DO Ot 272.0 PURE HYPERCHOLESTEROLEM 08/23/2016 SHAKIRA LEOS DO Ot 345.90 EPILEPSY UNSPEC W/O MENTION INTRACTABLE 08/23/2016 SHAKIRA LEOS DO Ot 401.1 BENIGN HYPERTENSION 08/23/2016 SHAKIRA LEOS DO Ot 496 CHR AIRWAY OBSTRUCT NEC 08/23/2016 SHAKIRA LEOS DO Ot V58.61 ANTICOAGULANTS,LT,CURRENT USE 08/23/2016 YASMINE RAVI MD S Ot 453.40 ACUTE VENOUS EMBOLISM THROMBOSIS UNSP 08/23/2016 YASMINE RAVI MD Ot 453.40 ACUTE VENOUS EMBOLISM THROMBOSIS UNSP 08/23/2016 SUHA DE LA ROSA MD Ot 327.23 OBSTRUCTIVE SLEEP APNEA (ADULT) (PEDIATR 08/23/2016 RJ MATAMOROS, SUHA Phan Ot 401.9 HYPERTENSION NOS 08/23/2016 RJ MATAMOROS, SUHA Phan Ot 496 CHR AIRWAY OBSTRUCT NEC 08/23/2016 SUHA DE LA ROSA MD Ot 786.09 RESPIRATORY ABNORM NEC 08/23/2016 YASMINE RAVI MD Ot 453.40 ACUTE VENOUS EMBOLISM THROMBOSIS UNSP 08/23/2016 SHAKIRA LEOS DO Ot 272.0 PURE HYPERCHOLESTEROLEM 08/23/2016 SHAKIRA LEOS DO Ot 345.90 EPILEPSY UNSPEC W/O MENTION INTRACTABLE 08/23/2016 SHAKIRA LEOS DO Ot 401.1 BENIGN HYPERTENSION 08/23/2016 SHAKIRA LEOS DO Ot 429.3 CARDIOMEGALY 08/23/2016 SHAKIRA LEOS DO Ot 453.40 ACUTE VENOUS EMBOLISM THROMBOSIS UNSP 08/23/2016 SHAKIRA LEOS DO Ot 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 08/23/2016 SHAKIRA LEOS DO Ot 496 CHR AIRWAY OBSTRUCT NEC 08/23/2016 SHAKIRA LEOS DO Ot 706.2 SEBACEOUS CYST 08/23/2016 SHAKIRA LEOS DO Ot 729.5 PAIN IN LIMB 08/23/2016 SHAKIRA LEOS DO Ot 782.3 EDEMA 08/23/2016 SHAKIRA LEOS DO Ot V58.61 ANTICOAGULANTS,LT,CURRENT USE 08/23/2016 SHAKIRA LEOS DO Ot V58.83 ENCOUNTER FOR THERAPEUTIC DRUG MONITORIN 08/23/2016 SHAKIRA LEOS DO Ot V70.0 ROUTINE MEDICAL EXAM 08/23/2016 YASMINE RAVI MD Ot 453.40 ACUTE VENOUS EMBOLISM THROMBOSIS UNSP 08/23/2016 Ot 327.23 OBSTRUCTIVE SLEEP APNEA (ADULT) (PEDIATR 08/23/2016 Ot 401.9 HYPERTENSION NOS 08/23/2016 Ot 496 CHR AIRWAY OBSTRUCT NEC 08/23/2016 YASMIEN RAVI MD Ot 453.40 ACUTE VENOUS EMBOLISM THROMBOSIS UNSP 08/23/2016 YASMINE RAVI MD Ot 453.40 ACUTE VENOUS EMBOLISM THROMBOSIS UNSP 08/23/2016 SHAKIRA LEOS DO Ot 272.0 PURE HYPERCHOLESTEROLEM 08/23/2016 ROSANGELA LEOS DOI Ot 401.1 BENIGN HYPERTENSION 08/23/2016 SHAKIRA LEOS DO Ot 496 CHR AIRWAY OBSTRUCT NEC 08/23/2016 SHAKIRA LEOS DO Ot V58.69 OT MED,LT,CURRENT USE 08/23/2016 SHAKIRA LEOS DO Ot V58.83 ENCOUNTER FOR THERAPEUTIC DRUG MONITORIN 08/23/2016 SHAKIRA LEOS DO Ot V70.0 ROUTINE MEDICAL EXAM 08/23/2016 RJ MATAMOROS, SUHA Phan Ot 327.23 OBSTRUCTIVE SLEEP APNEA (ADULT) (PEDIATR 08/23/2016 RJ MATAMOROS, SUHA Phan Ot 401.9 HYPERTENSION NOS 08/23/2016 RJ MATAMOROS, SUHA Phan Ot 429.3 CARDIOMEGALY 08/23/2016 RJ MATAMOROS, SUHA Phan Ot 786.09 RESPIRATORY ABNORM NEC 08/23/2016 BREONNA MATAMOROS, YASMINE S Ot 493.20 CHRONIC OBSTRUCTIVE ASTHMA, NOS 08/23/2016 SHAKIRA LEOS DO Ot V01.1 TUBERCULOSIS CONTACT 08/23/2016 SHAKIRA LEOS DO Ot 272.0 PURE HYPERCHOLESTEROLEM 08/23/2016 SHAKIRA LEOS DO Ot 401.1 BENIGN HYPERTENSION 08/23/2016 SHAKIRA LEOS DO Ot 429.3 CARDIOMEGALY 08/23/2016 SHAKIRA LEOS DO Ot 453.40 ACUTE VENOUS EMBOLISM THROMBOSIS UNSP 08/23/2016 SHAKIRA LEOS DO Ot 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 08/23/2016 SHAKIRA LEOS DO Ot 496 CHR AIRWAY OBSTRUCT NEC 08/23/2016 SHAKIRA LEOS DO Ot 729.5 PAIN IN LIMB 08/23/2016 SHAKIRA LEOS DO Ot 780.39 OTHER CONVULSIONS 08/23/2016 SHAKIRA LEOS DO Ot 782.3 EDEMA 08/23/2016 SHAKIRA LEOS DO Ot V15.82 HISTORY OF TOBACCO USE 08/23/2016 SHAKIRA LEOS DO Ot V58.69 OT MED,LT,CURRENT USE 08/23/2016 SHAKIRA LEOS DO Ot V70.0 ROUTINE MEDICAL EXAM 08/23/2016 SHAKIRA LEOS DO Ot E78.0 PURE HYPERCHOLESTEROLEMIA 08/23/2016 LEOS DO, SHAKIRA Ot 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 08/23/2016 LEOS DO SHAKIRA Ot Z00.00 ENCNTR FOR GENERAL ADULT MEDICAL EXAM 08/23/2016 DAFNE FRAIRE SHAKIRA Ot Z51.81 ENCOUNTER FOR THERAPEUTIC DRUG LEVEL MON 08/23/2016 DAFNE FRAIRE SHAKIRA Ot Z79.899 OTHER HOME MORTGAGE DISCLOSURE ACT SPECIALIST (CURRENT) DRUG THERAPY 08/24/2016 KASIA CABA Ot E78.2 MIXED HYPERLIPIDEMIA 08/24/2016 DAFNE DO SHAKIRA Ot E78.00 PURE HYPERCHOLESTEROLEMIA, UNSPECIFIED 08/24/2016 DAFNE DO SHAKIRA Ot 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 08/24/2016 DAFNE DO SHAKIRA Ot Z00.00 ENCNTR FOR GENERAL ADULT MEDICAL EXAM 08/24/2016 DAFNE FRAIRE SHAKIRA Ot Z51.81 ENCOUNTER FOR THERAPEUTIC DRUG LEVEL Sat08/24/2016 DAFNE FRAIRE SHAKIRA Ot Z79.899 OTHER HOME MORTGAGE DISCLOSURE ACT SPECIALIST (CURRENT) DRUG THERAPY 09/19/2016 KASIA CABA Ot E78.2 MIXED HYPERLIPIDEMIA 10/26/2016 DAFNE DO SHAKIRA Ot E78.00 PURE HYPERCHOLESTEROLEMIA, UNSPECIFIED 10/26/2016 DAFNE DO SHAKIRA Ot 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 10/26/2016 DAFNE FRAIRE SHAKIRA Ot Z00.00 ENCNTR FOR GENERAL ADULT MEDICAL EXAM 10/26/2016 ADFNE FRAIRE SHAKIRA Ot Z51.81 ENCOUNTER FOR THERAPEUTIC DRUG LEVEL Sat10/26/2016 DAFNE FRAIRE SHAKIRA Ot Z79.899 OTHER ALF (CURRENT) DRUG THERAPY 10/30/2016 KASIA CABA Ot E78.2 MIXED HYPERLIPIDEMIA Procedures Code [place] [address] PSYCH DIAGNOSTIC EVALUATION 11/06/2013 41658 PSYTX PT&/FAMILY 45 MINUTES 12/08/2013 95535 PSYTX PT&/FAMILY 45 MINUTES 12/25/2013 33697 PSYTX PT&/FAMILY 45 MINUTES 01/19/2014 52810 PSYTX PT&/FAMILY 45 MINUTES 01/28/2014 21320 PSYTX PT&/FAMILY 45 MINUTES 02/18/2014 98393 PSYTX PT&/FAMILY 45 MINUTES 03/18/2014 66604 PSYTX PT&/FAMILY 45 MINUTES 04/08/2014 92646 PSYTX PT&/FAMILY 45 MINUTES 04/29/2014 45515 PSYTX PT&/FAMILY 45 MINUTES 05/20/2014 47285 PSYTX PT&/FAMILY 45 MINUTES 06/09/2014 16232 PSYTX PT&/FAMILY 45 MINUTES 07/12/2014 77263 PSYTX PT&/FAMILY 45 MINUTES 08/04/2014 55352 PSYTX PT&/FAMILY 45 MINUTES 08/26/2014 06458 PSYTX PT&/FAMILY 45 MINUTES 10/13/2014 Results Test Result Range Comprehensive metabolic panel - 03/01/16 07:56 Serum or plasma sodium measurement (moles/volume) 140 mmol/ L 135-145 Serum or plasma potassium measurement (moles/volume) 4.5 mmol/L 3.6-5.0 Serum or plasma chloride measurement (moles/volume) 107 mmol /L 98-107 Carbon dioxide 25 mmol/L 21-32 Serum or plasma anion gap determination (moles/volume) 8 mmol/L 5-14 Serum or plasma urea nitrogen measurement (mass/volume) 17 mg/dL 7-18 Serum or plasma creatinine measurement (mass/volume) 1.00 mg /dL 0.60-1.30 Serum or plasma urea nitrogen/creatinine mass ratio 17 NRG Serum or plasma creatinine measurement with calculation of estimated glomerular filtration rate > NRG Serum or plasma glucose measurement (mass/volume) 100 mg/dL 70-105 Serum or plasma calcium measurement (mass/volume) 9.5 mg/dL 8.5-10.1 Serum or plasma total bilirubin measurement (mass/volume) 0.4 mg/dL 0.1-1.0 Serum or plasma alkaline phosphatase measurement (enzymatic activity/volume) 75 U/L 40-136 Serum or plasma aspartate aminotransferase measurement (enzymatic activity/ volume) 28 U/L 5-34 Serum or plasma alanine aminotransferase measurement (enzymatic activity/volume ) 45 U/L 0-55 Serum or plasma protein measurement (mass/volume) 7.1 g/dL 6.4-8.2 Serum or plasma albumin measurement (mass/volume) 4.1 g/dL 3.2-4.5 Lipid 1996 panel - 03/01/16 07:56 Serum or plasma triglyceride measurement (mass/volume) 61 mg /dL <150 Serum or plasma cholesterol measurement (mass/volume) 177 mg /dL < 200 Serum or plasma cholesterol in HDL measurement (mass/volume) 52 mg/dL 40-60 Cholesterol in LDL [mass/volume] in serum or plasma by direct assay 111 mg/dL 1-129 Serum or plasma cholesterol in VLDL measurement (mass/volume) 12 mg/dL 5-40 THYROID STIMULATING HORMONE - 03/01/16 07:56 THYROID STIMULATING HORMONE 1.18 u[iU]/mL 0.35-4.94 Serum or plasma phenytoin measurement (mass/volume) - 03/01/16 07:56 Serum or plasma phenytoin measurement (mass/volume) 7.7 ug/ mL 10.0-20.0 Complete blood count (CBC) with automated white blood cell (WBC) differential - 08/23/16 07:58 Blood leukocytes automated count (number/volume) 8.0 10*3/ uL 4.3-11.0 Blood erythrocytes automated count (number/volume) 4.82 10*6 /uL 4.35-5.85 Venous blood hemoglobin measurement (mass/volume) 15.1 g/dL 13.3-17.7 Blood hematocrit (volume fraction) 45 % 40-54 Automated erythrocyte mean corpuscular volume 94 [foz_us] 80-99 Automated erythrocyte mean corpuscular hemoglobin (mass per erythrocyte) 31 pg 25-34 Automated erythrocyte mean corpuscular hemoglobin concentration measurement ( mass/volume) 33 g/dL 32-36 Automated erythrocyte distribution width ratio 12.9 % 10.0-14.5 Automated blood platelet count (count/volume) 244 10*3/uL 130-400 Automated blood platelet mean volume measurement 10.1 [foz_ us] 7.4-10.4 Automated blood neutrophils/100 leukocytes 68 % 42-75 Automated blood lymphocytes/100 leukocytes 16 % 12-44 Blood monocytes/100 leukocytes 11 % 0-12 Automated blood eosinophils/100 leukocytes 5 % 0-10 Automated blood basophils/100 leukocytes 1 % 0-10 Blood neutrophils automated count (number/volume) 5.4 10*3 1.8-7.8 Blood lymphocytes automated count (number/volume) 1.3 10*3 1.0-4.0 Blood monocytes automated count (number/volume) 0.9 10*3 0.0-1.0 Automated eosinophil count 0.4 10*3/uL 0.0-0.3 Automated blood basophil count (count/volume) 0.1 10*3/uL 0.0-0.1 Comprehensive metabolic panel - 08/23/16 07:58 Serum or plasma sodium measurement (moles/volume) 140 mmol/ L 135-145 Serum or plasma potassium measurement (moles/volume) 4.7 mmol/L 3.6-5.0 Serum or plasma chloride measurement (moles/volume) 105 mmol /L 98-107 Carbon dioxide 26 mmol/L 21-32 Serum or plasma anion gap determination (moles/volume) 9 mmol/L 5-14 Serum or plasma urea nitrogen measurement (mass/volume) 20 mg/dL 7-18 Serum or plasma creatinine measurement (mass/volume) 0.98 mg /dL 0.60-1.30 Serum or plasma urea nitrogen/creatinine mass ratio 20 NRG Serum or plasma creatinine measurement with calculation of estimated glomerular filtration rate > NRG Serum or plasma glucose measurement (mass/volume) 96 mg/dL 70-105 Serum or plasma calcium measurement (mass/volume) 9.2 mg/dL 8.5-10.1 Serum or plasma total bilirubin measurement (mass/volume) 0.6 mg/dL 0.1-1.0 Serum or plasma alkaline phosphatase measurement (enzymatic activity/volume) 71 U/L 40-136 Serum or plasma aspartate aminotransferase measurement (enzymatic activity/ volume) 23 U/L 5-34 Serum or plasma alanine aminotransferase measurement (enzymatic activity/volume ) 44 U/L 0-55 Serum or plasma protein measurement (mass/volume) 6.8 g/dL 6.4-8.2 Serum or plasma albumin measurement (mass/volume) 4.0 g/dL 3.2-4.5 Lipid 1996 panel - 08/23/16 07:58 Serum or plasma triglyceride measurement (mass/volume) 86 mg /dL <150 Serum or plasma cholesterol measurement (mass/volume) 165 mg /dL < 200 Serum or plasma cholesterol in HDL measurement (mass/volume) 52 mg/dL 40-60 Cholesterol in LDL [mass/volume] in serum or plasma by direct assay 98 mg/dL 1-129 Serum or plasma cholesterol in VLDL measurement (mass/volume) 17 mg/dL 5-40 THYROID STIMULATING HORMONE - 08/23/16 07:58 THYROID STIMULATING HORMONE 1.13 u[iU]/mL 0.35-4.94 Serum or plasma phenytoin measurement (mass/volume) - 08/23/16 07:58 Serum or plasma phenytoin measurement (mass/volume) 10.0 ug/ mL 10.0-20.0 Encounters ACCT No. Visit Date/Time Discharge Status Pt. Type Provider Facility Loc./Unit Complaint [id number] 10/13/2014 07:54:00 10/13/2014 23: 59:59 JESSICA Heaton PHD [id number] 08/25/2014 09:50:00 08/25/2014 23: 59:59 [facility] Out[facility] JESSICA MARTELL PHD [id number] 08/04/2014 07:58:00 08/04/2014 23: 59:59 ASIA Gilbert PHD [id number] 07/12/2014 08:54:00 07/12/2014 23: 59:59 ASIA Gilbert PHD [id number] 06/09/2014 09:04:00 06/09/2014 23: 59:59 ASIA Gilbert PHD [id number] 05/20/2014 07:53:00 05/20/2014 23: 59:59 [facility] Outpatient ASIA MALAVE PHD [id number] 04/29/2014 07:58:00 04/29/2014 23: 59:59 ASIA Gilbert PHD [id number] 04/08/2014 08:00:00 04/08/2014 23: 59:59 ASIA Gilbert PHD [id number] 03/18/2014 07:57:00 03/18/2014 23: 59:59 ASIA Gilbert PHD [id number] 02/18/2014 07:58:00 02/18/2014 23: 59:59 [facility] Outpatient ASIA MALAVE PHD [id number] 01/28/2014 07:55:00 01/28/2014 23: 59:59 ASIA Gilbert PHD [id number] 01/14/2014 07:52:00 01/14/2014 23: 59:59 ASIA Gilbert PHD [id number] 12/25/2013 15:54:00 12/25/2013 23: 59:59 ASIA Gilbert PHD [id number] 12/08/2013 14:51:00 12/08/2013 23: 59:59 [facility] Outpatient ASIA MALAVE PHD [id number] 11/06/2013 12:47:00 11/06/2013 23: 59:59 [facility] ASIA MALAVE PHD
--- OUTSIDE RECORDS SUMMARY | 2017-01-16 18:23 | XMS REPORT ---
Author Author LESLIE RAMIREZ Organization [facility] Address [address] [place] [address] Care Team Providers Care Furniture Sprayer Name Role Phone LESLIE RAMIREZ Unavailable PROBLEMS Type Condition ICD9-CM Code CLC26-PC Code Onset Dates Condition Status SNOMED Code Problem Dysthymic disorder F34.1 Active 54400035 Assessment Dysthymic disorder F34.1 Mar, Active 31083251 ALLERGIES Unknown Allergies SOCIAL HISTORY No smoking Hx information available PLAN OF CARE VITAL SIGNS MEDICATIONS Unknown Medications RESULTS No Results PROCEDURES Procedure Date Ordered Related Diagnosis Body Site Psychotherapy, patient &/family, 45 minutes, established patient Mar 22, 2016 IMMUNIZATIONS No Known Immunizations
[2017-01-16] MEDS ORDERED: CATHETER FLUSH 10 ML SYR IV PRN (18:30)
[2017-01-16] MEDS: cefTRIAXone INJECTION 1,000 MG in NS (IVPB) 50 ML IV SCH (18:34)
[2017-01-16] MEDS ORDERED: RT-ALBUTEROL/IPRATROPIUM 3 ML (DUONEB) VIAL INH PRN (18:45)
--- OUTSIDE RECORDS SUMMARY | 2017-01-16 19:00 | XMS REPORT | Continuity of Care Document ---
Author Author [facility] Organization [facility] Address Unknown Phone Unavailable Care Team Providers Care Sales Operations Analyst Name Role Phone PCP Unavailable Source Comments Some departments are not documenting in the electronic medical record. If you do not see the information that you expected, contact Release of Information in the Health Information Management department at [phone] for further assistance in locating additional records.[facility] Active Allergies and Adverse Reactions Not on [...]
--- OUTSIDE RECORDS SUMMARY | 2017-01-16 19:04 | XMS REPORT | Continuity of Care Document ---
Author Author [facility] Address Unknown Phone Unavailable Allergies Active Description Code Type Severity Reaction Onset Reported/Identified Relationship to Patient Clinical Status Yes No Known Drug Allergies [id number] Drug Allergy Unknown N/ A 10/07/2007 Medications [...] 03/01/2016 DAFNE FRAIRE SHAKIRA Ot Z79.899 OTHER CORRECTION (CURRENT) DRUG THERAPY 03/23/2016 DAFNE FRAIRE SHAKIRA Ot E78.0 PURE HYPERCHOLESTEROLEMIA 03/23/2016 DAFNE FRAIRE SHAKIRA Ot 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 03/23/2016 SHAKIRA LEOS DO Ot Z00.00 ENCNTR FOR GENERAL ADULT MEDICAL EXAM W03/23/2016 SHAKIRA LEOS DO Ot Z51.81 ENCOUNTER FOR THERAPEUTIC DRUG LEVEL MON 03/23/2016 SHAKIRA LEOS DO Ot Z79.899 OTHER ROBOTIC WELDER (CURRENT) DRUG THERAPY 06/18/2016 Ot 496 CHR [...] Ot 496 CHR AIRWAY OBSTRUCT NEC 08/23/2016 JR MATAMOROS, SUHA Phan Ot 272.4 HYPERLIPIDEMIA NEC/NOS [...] Ot 496 CHR AIRWAY OBSTRUCT NEC 08/23/2016 YASMINE ARVI MD Ot 453.40 ACUTE VENOUS EMBOLISM THROMBOSIS [...] 08/23/2016 DAFNE FRAIRE SHAKIRA Ot Z79.899 OTHER ROBOTIC WELDER (CURRENT) DRUG THERAPY 08/24/2016 KASIA CABA Ot E78.2 MIXED HYPERLIPIDEMIA 08/24/2016 DAFNE DO SHAKIRA Ot E78.00 PURE HYPERCHOLESTEROLEMIA, UNSPECIFIED 08/24/2016 DAFNE DO SHAKIRA Ot 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 08/24/2016 DAFNE DO SHAKIRA Ot Z00.00 ENCNTR FOR GENERAL ADULT MEDICAL EXAM 08/24/2016 DAFNE FRAIRE SHAKIRA Ot Z51.81 ENCOUNTER FOR THERAPEUTIC DRUG LEVEL Sat08/24/2016 DAFNE FARIRE SHAKIRA Ot Z79.899 OTHER ROBOTIC WELDER (CURRENT) DRUG THERAPY 09/19/2016 KASIA CABA Ot E78.2 MIXED HYPERLIPIDEMIA 10/26/2016 DAFNE DO SHAKIRA Ot E78.00 PURE HYPERCHOLESTEROLEMIA, UNSPECIFIED 10/26/2016 DAFNE DO SHAKIRA Ot 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 10/26/2016 DAFNE FRAIRE SHAKIRA Ot Z00.00 ENCNTR FOR GENERAL ADULT MEDICAL EXAM 10/26/2016 DAFNE FRAIRE SHAKIRA Ot Z51.81 ENCOUNTER FOR THERAPEUTIC DRUG LEVEL Sat10/26/2016 DAFNE FRAIRE SHAKIRA Ot Z79.899 OTHER CORRECTION (CURRENT) DRUG THERAPY 10/30/2016 KASIA CABA Ot E78.2 MIXED HYPERLIPIDEMIA Procedures Code [place] [address] PSYCH DIAGNOSTIC EVALUATION 11/06/2013 44786 PSYTX PT&/FAMILY 45 MINUTES 12/08/2013 25429 PSYTX PT&/FAMILY 45 MINUTES 12/25/2013 50705 PSYTX PT&/FAMILY 45 MINUTES 01/19/2014 98325 PSYTX PT&/FAMILY 45 MINUTES 01/28/2014 72728 PSYTX PT&/FAMILY 45 MINUTES 02/18/2014 21833 PSYTX PT&/FAMILY 45 MINUTES 03/18/2014 16658 PSYTX PT&/FAMILY 45 MINUTES 04/08/2014 27636 PSYTX PT&/FAMILY 45 MINUTES 04/29/2014 08915 PSYTX PT&/FAMILY 45 MINUTES 05/20/2014 65443 PSYTX PT&/FAMILY 45 MINUTES 06/09/2014 95950 PSYTX PT&/FAMILY 45 MINUTES 07/12/2014 76636 PSYTX PT&/FAMILY 45 MINUTES 08/04/2014 79802 PSYTX PT&/FAMILY 45 MINUTES 08/26/2014 14066 PSYTX PT&/FAMILY 45 MINUTES 10/13/2014 Results Test [...] Status Pt. Type Provider Facility Loc./Unit Complaint [id number] 10/13/2014 07:54:00 10/13/2014 23: 59:59 JESSICA Heaton PHD [id number] 08/25/2014 09:50:00 08/25/2014 23: 59:59 [facility] JESSICA MARTELL PHD [id number] 08/04/2014 07:58:00 08/04/2014 23: 59:59 ASIA Gilbert PHD [id number] 07/12/2014 08:54:00 07/12/2014 23: 59:59 ASIA Gilbert PHD [id number] 06/09/2014 09:04:00 06/09/2014 23: 59:59 ASIA Gilbert PHD [id number] 05/20/2014 07:53:00 05/20/2014 23: 59:59 [facility] Outpatient ASIA MALAVE PHD [id number] 04/29/2014 07:58:00 04/29/2014 23: 59:59 ASIA Gilbert PHD [id number] 04/08/2014 08:00:00 04/08/2014 23: 59:59 ASIA Gilbert PHD [id number] 03/18/2014 07:57:00 03/18/2014 23: 59:59 ASIA Gilbert PHD [id number] 02/18/2014 07:58:00 02/18/2014 23: 59:59 [facility] Outpatient ASIA MALAVE PHD [id number] 01/28/2014 07:55:00 01/28/2014 23: 59:59 ASIA Gilbert PHD [id number] 01/14/2014 07:52:00 01/14/2014 23: 59:59 ASIA Gilbert PHD [id number] 12/25/2013 15:54:00 12/25/2013 23: 59:59 ASIA Gilbert PHD [id number] 12/08/2013 14:51:00 12/08/2013 23: 59:59 [facility] Outpatient ASIA MALAVE PHD [id number] 11/06/2013 12:47:00 11/06/2013 23: 59:59 [facility] ASIA MALAVE PHD
[2017-01-16] MEDS: LEVOFLOXACIN 750 MG/D5W 150 ML PRE-MIX IV SCH (19:06)
[2017-01-16 20:00] VITALS: BP 120/67
[2017-01-16] MEDS: CATHETER FLUSH 10 ML SYR IV SCH (20:05)
[2017-01-16] MEDS: guaiFENesin (MUCINEX) 600 MG TAB PO SCH (20:05)
[2017-01-16] MEDS: ARFORMOTEROL 15 MCG/2 ML (BROVANA) INH SOLUTIION IH SCH (21:39)
[2017-01-16] MEDS: RT-BUDESONIDE NEBS 0.5 MG/2ML (PULMICORT) AMP INH SCH (21:39)
[2017-01-17 00:20] VITALS: BP 122/52
[2017-01-17 03:45] VITALS: BP 115/56
[2017-01-17] MEDS: CATHETER FLUSH 10 ML SYR IV SCH ×3 (06:08→20:19)
[2017-01-17 06:37] LABS: BASOPHILS % (AUTO) 0 % (0-10); EOSINOPHILS % (AUTO) 0 % (0-10); LYMPHOCYTES # (AUTO) 1.7 X 10^3 (1.0-4.0); LYMPHOCYTES % (AUTO) 16 % (12-44); MEAN CORPUSCULAR HEMOGLOBIN 30 PG (25-34); MEAN CORPUSCULAR HGB CONC 33 G/DL (32-36); MEAN CORPUSCULAR VOLUME 93 FL (80-99); MEAN PLATELET VOLUME 10.1 FL (7.4-10.4); MONOCYTES # (AUTO) 1.8 X 10^3 (0.0-1.0); MONOCYTES % (AUTO) 16 % (0-12); NEUTROPHILS # (AUTO) 7.6 X 10^3 (1.8-7.8); NEUTROPHILS % (AUTO) 68 % (42-75); PLATELET COUNT 274 10^3/uL (130-400); RED BLOOD COUNT 4.55 10^6/uL (4.35-5.85); RED CELL DISTRIBUTION WIDTH 13.2 % (10.0-14.5); WHITE BLOOD COUNT 11.1 10^3/uL (4.3-11.0)
[2017-01-17] MEDS: ARFORMOTEROL 15 MCG/2 ML (BROVANA) INH SOLUTIION IH SCH ×2 (06:55→18:21)
[2017-01-17] MEDS: RT-BUDESONIDE NEBS 0.5 MG/2ML (PULMICORT) AMP INH SCH ×2 (06:57→18:16)
[2017-01-17] MEDS: UMECLIDINIUM BROMIDE (INCRUSE ELLIPTA) 7'S IH SCH (06:58)
[2017-01-17] MEDS ORDERED: PANTOPRAZOLE 20 MG TABLET (PROTONIX) PO SCH (07:00)
--- NOTE | 2017-01-17 07:55 | Pulmonary Consultation ---
History of Present Illness History of Present Illness Date of Consultation 01/17/17 07:50 Time Seen by Provider: 07:50 Date of Admission History of Present Illness 61yo patient presented via EMS from Dr. Harvey's office secondary to hypoxia with Sp02 of 77% on RA and fever of 101. Pt does not usually require oxygen. Patient has been receiving outpatient treatment for PNA/bronchitis over the last month. Patient has also had night sweats and chills. No n/v. Breathing treatments have not helped and he has continued to worsen despite out patient Abx. I am consulted for pulmonary management. Allergies and Home Medications Allergies Coded Allergies: No Known Drug Allergies (Verified , 10/07/07) Home Medications Guaifenesin 600 Mg Tab, (Reported) Lansoprazole 30 Mg Cap, (Reported) Phenytoin Sodium Extended 100 Mg Capsule, (Reported) Tiotropium [place] 18 Mcg Cap.w.dev, (Reported) [Coumadin ] , (Reported) [Coumadin] , (Reported) [Duoneb] , (Reported) [Levitra] , (Reported) [Perforomist] , (Reported) [Pro Air Rescue Inhal] , (Reported) [Pulmicort] , (Reported) Past Tcqzzah-Rifodf-Bginmz Hx Patient Social History Alcohol Use: Occasionally Uses Recreational Drug Use: No Smoking Status: Former Smoker Type Used: Cigarettes 2nd Hand Smoke Exposure: No Recent Foreign Travel: No Contact w/Someone Who Travel: No Recent Infectious Disease Expo: No Recent Hopitalizations: No Physical Abuse Screen: No Sexual Abuse: No Surgeries HX Surgeries: Yes (IVC filter) Surgeries: Eye Surgery, Tonsillectomy Respiratory Hx Respiratory Disorders: Yes (HYPERSENSITIVITY PNUEMONITIS) Cardiovascular Hx Cardiac Disorders: No Cardiac Disorders: Deep Vein Thrombosis Neurological Hx Neurological Disorders: Yes Neurological Disorders: Seizure Disorder Reproductive System Hx Reproductive Disorders: No Genitourinary Hx Genitourinary Disorders: No Gastrointestinal Hx Gastrointestinal Disorders: Yes Gastrointestinal Disorders: Gastroesophageal Reflux Musculoskeletal Hx Musculoskeletal Disorders: Yes Endocrine Hx Endocrine Disorders: No HEENT HX ENT Disorders: No Psychosocial Hx Psychiatric Problems: Yes Behavioral Health Disorders: Sleep Difficulties Blood Transfusions Hx Blood Disorders: Yes Reviewed Nursing Assessment Reviewed/Agree w Nursing PMH: Yes Exam Exam Vital Signs Date Time Temp Pulse Resp B/P (MAP) Pulse Ox O2 Delivery O2 Flow Rate FiO2 01/17/17 07:00 97 Vapotherm 20.00 45 01/17/17 06:55 94 Vapotherm 22.00 45 01/17/17 03:45 98.1 73 20 115/56 95 Vapotherm 01/17/17 01:57 89 Vapotherm 22.00 40 01/17/17 01:00 86 01/17/17 00:20 98.4 86 22 122/52 95 Vapotherm 01/16/17 21:46 98 Vapotherm 22.00 40 01/16/17 21:40 95 Vapotherm 25.00 45 01/16/17 21:00 Vapotherm 25.00 45 01/16/17 20:00 99.4 99 22 120/67 95 Vapotherm 01/16/17 19:52 103 01/16/17 18:59 97 Vapotherm 30.00 50 01/16/17 18:36 97 01/16/17 18:22 98 Vapotherm 30.00 70 01/16/17 18:15 99.8 96 22 137/77 Vapotherm 01/16/17 18:10 97 Vapotherm 30.00 50 01/16/17 17:41 99.7 95 16 98 Vapotherm 30.00 01/16/17 14:57 96 Vapotherm 30.00 70 01/16/17 14:28 92 Nasal Cannula 5.00 01/16/17 14:18 98 Vapotherm 30.00 70 01/16/17 14:15 99.7 100 20 123/78 90 Nasal Cannula 4.00 I & O 01/17/17 07:00 Intake Total 2250 ml Output Total 2025 ml Balance 225 ml Capillary Refill: Less Than 3 Seconds Gastrointestinal: non tender, soft Results Lab Laboratory Tests 01/16/17 14:18 01/17/17 05:57 Assessment/Plan Assessment/Plan HCAP with sepsis - failed out patient treatment -wilcox cultures pending - SVNS, oxygen Clinical Quality Measures DVT/VTE Risk/Contraindication: Risk Factor Score Per Nursin RFS Level Per Nursing on Admit: 4+=Very High SHYAM RICE DO Jan 17, 2017 07:55
[2017-01-17 08:00] VITALS: BP 160/72
[2017-01-17] MEDS ORDERED: TIOTROPIUM BROMIDE (SPIRIVA) 5'S INHALER IH SCH (08:00)
[2017-01-17] MEDS ORDERED: MONTELUKAST 10 MG (SINGULAIR) TAB PO SCH (09:00)
[2017-01-17] MEDS ORDERED: OMEG-109 PO (09:16)
[2017-01-17] MEDS ORDERED: RT-ALBUINH IH (09:16)
[2017-01-17] MEDS ORDERED: AMLO10TA2 PO (09:16)
[2017-01-17] MEDS ORDERED: LORA10TA7 PO (09:16)
[2017-01-17] MEDS ORDERED: CHOL20003 PO (09:16)
[2017-01-17] MEDS ORDERED: MONT10TA24 PO (09:16)
[2017-01-17] MEDS ORDERED: LOTE5GEL OS (09:16)
[2017-01-17] MEDS ORDERED: MULT-1061 PO (09:16)
[2017-01-17] MEDS ORDERED: FORM20VI IH (09:16)
[2017-01-17] MEDS ORDERED: ASCO10006 PO (09:16)
[2017-01-17] MEDS ORDERED: VITA150T PO (09:16)
[2017-01-17] MEDS ORDERED: OMEP20CA12 PO (09:16)
[2017-01-17] MEDS ORDERED: TIOT18CA2 IH (09:16)
[2017-01-17] MEDS ORDERED: ALBU2.5V4 IH (09:16)
[2017-01-17] MEDS ORDERED: GUAI600T43 PO (09:16)
[2017-01-17] MEDS ORDERED: BUDE0.5A IH (09:16)
[2017-01-17] MEDS ORDERED: PHEN100C11 PO (09:16)
[2017-01-17] MEDS: guaiFENesin (MUCINEX) 600 MG TAB PO SCH ×2 (09:21→20:18)
[2017-01-17] MEDS: cefTRIAXone INJECTION 1,000 MG in NS (IVPB) 50 ML IV SCH (09:22)
--- NOTE | 2017-01-17 09:24 | History & Physical-Hospitalist ---
HPI History of Present Illness: HPI/Chief Complaint CC: Dyspnea HPI: This is a 61yoWM clinic patient of mine for the last 13 years that presents to the ER after transported from Dr Harvey's office for O2 sat of 77% w/ severe dyspnea. He has required three rounds of treatment with steroids and abx in the past 6 weeks that helped for a bit but then declined and status again prompting ER visit but when he saw pulmonology yesterday he was found to have O2 sat of 77 percent and transported to the emergency room. Currently he is feeling better but still on high flow Vapotherm O2 and he has not required home oxygen in the past but I do chromosomal disorders counselor him on the likelihood that they'll need to be set up prior to discharge. At this time he denies any pain denies any cough and overall feels better than he did when he was admitted. Source: patient Exam Limitations: clinical condition Date Seen 01/17/17 Time Seen by Provider: 09:00 Attending Physician Paula Mayorga DO PCP Paula Mayorga DO Referring Physician Date of Admission Jan 16, 2017 at 17:21 Home Medications & Allergies Home Medications Reviewed patient Home Medication Reconciliation Form Allergies Allergies Coded Allergies No Known Drug Allergies (Verified10/07/07) Past Ezprnsp-Pwgwgb-Oxrpdd Hx Patient Social History Marrital Status: Employed/Student: retired Alcohol Use: Occasionally Uses Recreational Drug Use: No Smoking Status: Former Smoker Type Used: Cigarettes 2nd Hand Smoke Exposure: No Physical Abuse Screen: No Sexual Abuse: No Recent Foreign Travel: No Contact w/other who traveled: No Recent Hopitalizations: No Recent Infectious Disease Expo: No Surgeries HX Surgeries: Yes (IVC filter) Surgeries: Eye Surgery, Tonsillectomy Respiratory Hx Respiratory Disorders: Yes (HYPERSENSITIVITY PNUEMONITIS) Respiratory Disorders: COPD, Pneumonia Cardiovascular Hx Cardiovascular Disorders: Yes Cardiac Disorders: Deep Vein Thrombosis, High Cholesterol, Hypertension Neurological Hx Neurological Disorders: Yes Neurological Disorders: Seizure Disorder Reproductive System Hx Reproductive Disorders: No Genitourinary Hx Genitourinary Disorders: No Gastrointestinal Hx Gastrointestinal Disorders: Yes Gastrointestinal Disorders: Gastroesophageal Reflux Musculoskeletal Hx Musculoskeletal Disorders: Yes Musculoskeletal Disorders: Arthritis Endocrine Hx Endocrine Disorders: No HEENT HX ENT Disorders: No Cancer Hx Cancer: No Psychosocial Hx Psychiatric Problems: No Behavioral Health Disorders: Sleep Difficulties Blood Transfusions Hx Blood Disorders: Yes Reviewed Nursing Assessment Reviewed/Agree w Nursing PMH: Yes Review of Systems Constitutional: see HPI, weakness EENTM: no symptoms reported Respiratory: cough, dyspnea on exertion, short of breath, wheezing Cardiovascular: no symptoms reported Gastrointestinal: no symptoms reported Genitourinary: no symptoms reported Musculoskeletal: no symptoms reported Skin: no symptoms reported Psychiatric/Neurological: No Symptoms Reported All Other Systems Reviewed Negative Unless Noted: Yes Physical Exam Physical Exam Vital Signs Vital Sign - Last 12Hours 01/16/17 01/16/17 14:15 14:18 Temp 99.7 Pulse 100 Resp 20 B/P (MAP) 123/78 Pulse Ox 90 O2 Delivery Nasal Cannula O2 Flow Rate 4.00 FiO2 70 Capillary Refill : Less Than 3 Seconds General Appearance: No Apparent Distress, WD/WN, Chronically ill Eyes: Bilateral Eye Normal Inspection, Bilateral Eye PERRL HEENT: PERRL/EOMI, Normal ENT Inspection, Pharynx Normal Neck: Full Range of Motion, Normal Inspection, Non Tender, Supple, Carotid Bruit Respiratory: Chest Non Tender, Lungs Clear, No Accessory Muscle Use, No Respiratory Distress, Decreased Breath Sounds Cardiovascular: Regular Rate, Rhythm, No Edema, No Gallop, No JVD, No Murmur, Normal Peripheral Pulses Gastrointestinal: Normal Bowel Sounds, No Organomegaly, No Pulsatile Mass, Non Tender, Soft Back: Normal Inspection, No CVA Tenderness, No Vertebral Tenderness Extremity: Normal Capillary Refill, Normal Inspection, Normal Range of Motion, Non Tender, No Calf Tenderness, No Pedal Edema Neurologic/Psychiatric: Alert, Oriented x3, No Motor/Sensory Deficits, Normal Mood/Affect Skin: Normal Color, Warm/Dry Lymphatic: No Adenopathy Results Results/Procedures Lab Laboratory Tests 01/16/17 14:18 01/17/17 05:57 Assessment/Plan Admission Diagnosis Assessment: Acute exacerbation of COPD Chronic pneumonitis due to occupational exposure years ago Hypertension History of DVT Hyperlipidemia Seizure disorder GERD Chronic back pain Assessment and Plan Plan: Reconcile home meds when available per pharmacy Monitor lung status Appreciate Dr. Mckenzie consult Monitor labs IV steroids Home oxygen evaluation Clinical Quality Measures DVT/VTE Risk/Contraindication: Risk Factor Score Per Nursin RFS Level Per Nursing on Admit: 4+=Very High PAULA MAYORGA DO Jan 17, 2017 09:24
[2017-01-17] MEDS ORDERED: TEST75GE3 TP (09:28)
[2017-01-17] MEDS: LEVOFLOXACIN 750 MG/D5W 150 ML PRE-MIX IV SCH (10:32)
[2017-01-17 12:00] VITALS: BP 131/64
[2017-01-17] MEDS ORDERED: RT-ALBUTEROL SULF 2.5 MG/3 ML PRE-MIX VIAL IH PRN (14:00)
[2017-01-17] MEDS ORDERED: PHENYTOIN 100 MG (DILANTIN) CAP PO SCH (14:00)
[2017-01-17] MEDS ORDERED: RT-ALBUTEROL HFA (VENTOLIN) PER PUFF IH PRN (14:00)
[2017-01-17 16:20] VITALS: BP 157/75
[2017-01-17 20:00] VITALS: BP 157/75
[2017-01-17] MEDS ORDERED: NON-FORMULARY MEDICATION 1 EA EA (Formoterol Fumarate (Perforomist) 20 MCG) IH SCH (21:00)
[2017-01-17] MEDS ORDERED: RT-BUDESONIDE NEBS 0.5 MG/2ML (PULMICORT) AMP IH SCH (21:00)
[2017-01-18 00:30] VITALS: BP 150/68
[2017-01-18] MEDS: LOTEPREDNOL ETABONATE OS SCH (06:00)
[2017-01-18] MEDS: PANTOPRAZOLE 20 MG TABLET (PROTONIX) PO SCH (06:00)
[2017-01-18] MEDS: CATHETER FLUSH 10 ML SYR IV SCH ×3 (06:00→21:06)
[2017-01-18 06:23] LABS: BASOPHILS % (AUTO) 0 % (0-10); EOSINOPHILS # (AUTO) 0.3 10^3/uL (0.0-0.3); EOSINOPHILS % (AUTO) 3 % (0-10); LYMPHOCYTES # (AUTO) 1.7 X 10^3 (1.0-4.0); LYMPHOCYTES % (AUTO) 14 % (12-44); MEAN CORPUSCULAR HEMOGLOBIN 30 PG (25-34); MEAN CORPUSCULAR HGB CONC 33 G/DL (32-36); MEAN CORPUSCULAR VOLUME 92 FL (80-99); MEAN PLATELET VOLUME 10.1 FL (7.4-10.4); MONOCYTES # (AUTO) 1.6 X 10^3 (0.0-1.0); MONOCYTES % (AUTO) 13 % (0-12); NEUTROPHILS # (AUTO) 8.2 X 10^3 (1.8-7.8); NEUTROPHILS % (AUTO) 69 % (42-75); PLATELET COUNT 303 10^3/uL (130-400); RED BLOOD COUNT 4.91 10^6/uL (4.35-5.85); RED CELL DISTRIBUTION WIDTH 13.3 % (10.0-14.5); WHITE BLOOD COUNT 11.8 10^3/uL (4.3-11.0)
[2017-01-18 06:49] LABS: ALANINE AMINOTRANSFERASE 36 U/L (0-55); ALBUMIN 3.3 GM/DL (3.2-4.5); ANION GAP 11 MMOL/L (5-14); ASPARTATE AMINO TRANSFERASE 39 U/L (5-34); BILIRUBIN,TOTAL 0.4 MG/DL (0.1-1.0); BLOOD UREA NITROGEN 17 MG/DL (7-18); BUN/CREATININE RATIO 19; CALCIUM 9.3 MG/DL (8.5-10.1); CARBON DIOXIDE 24 MMOL/L (21-32); CHLORIDE 106 MMOL/L (98-107); GFR ESTIMATED > 60; GLUCOSE 92 MG/DL (70-105); POTASSIUM 4.7 MMOL/L (3.6-5.0); SODIUM 141 MMOL/L (135-145); TOTAL PROTEIN 7.3 GM/DL (6.4-8.2)
[2017-01-18] MEDS: RT-BUDESONIDE NEBS 0.5 MG/2ML (PULMICORT) AMP INH SCH ×2 (07:38→19:59)
[2017-01-18] MEDS: ARFORMOTEROL 15 MCG/2 ML (BROVANA) INH SOLUTIION IH SCH ×2 (07:38→19:58)
[2017-01-18] MEDS: UMECLIDINIUM BROMIDE (INCRUSE ELLIPTA) 7'S IH SCH (07:39)
[2017-01-18 07:40] VITALS: BP 165/79
--- NOTE | 2017-01-18 07:42 | Pulmonary Progress Note ---
Subjective Time Seen by Provider: 08:08 Subjective/Events-last exam PT feels improved. He is still coughing up copious sputum. Exam Exam Vital Signs Date Time Temp Pulse Resp B/P (MAP) Pulse Ox O2 Delivery O2 Flow Rate FiO2 01/18/17 00:30 98.9 66 18 150/68 93 Nasal Cannula 10.00 01/17/17 21:00 Nasal Cannula 10.00 01/17/17 20:00 98.3 79 20 157/75 95 Vapotherm 01/17/17 18:21 High Flow N/C 8.00 01/17/17 18:17 96 High Flow N/C 9.00 01/17/17 16:20 98.9 68 20 157/75 96 Vapotherm 01/17/17 14:40 92 Nasal Cannula 10.00 01/17/17 12:00 98.9 75 20 131/64 96 Vapotherm 01/17/17 08:00 98.7 74 18 160/72 96 Vapotherm 01/17/17 08:00 Vapotherm 25.00 45 I & O 01/18/17 07:00 Intake Total 2540 ml Output Total 2875 ml Balance -335 ml General Appearance: No Apparent Distress, WD/WN, Chronically ill HEENT: PERRL/EOMI, Normal ENT Inspection, Pharynx Normal Neck: Full Range of Motion, Normal Inspection, Non Tender, Supple, Carotid Bruit Respiratory: Chest Non Tender, Lungs Clear, No Accessory Muscle Use, No Respiratory Distress, Decreased Breath Sounds Cardiovascular: Regular Rate, Rhythm, No Edema, No Gallop, No JVD, No Murmur, Normal Peripheral Pulses Capillary Refill: Less Than 3 Seconds Gastrointestinal: non tender, soft Extremity: Normal Capillary Refill, Normal Inspection, Normal Range of Motion, Non Tender, No Calf Tenderness, No Pedal Edema Neurologic/Psychiatric: Alert, Oriented x3, No Motor/Sensory Deficits, Normal Mood/Affect Skin: Normal Color, Warm/Dry Lymphatic: No Adenopathy Results Lab Laboratory Tests 01/16/17 14:18 01/17/17 05:57 01/18/17 05:55 Assessment/Plan Assessment/Plan HCAP with sepsis - failed out patient treatment -wilcox cultures pending - SVNS, oxygen -Rocephin, Levaquin COPDAE -SOlumedrol -CHange SVN to Q6 and Q2 PRN -MAT protocol had pt on only PRN SVNS -Continue Brovana and Pulmicort 232 Clinical Quality Measures DVT/VTE Risk/Contraindication: Risk Factor Score Per Nursin RFS Level Per Nursing on Admit: 4+=Very High SHYAM RICE DO Jan 18, 2017 07:42
[2017-01-18] MEDS ORDERED: RT-ALBUTEROL/IPRATROPIUM 3 ML (DUONEB) VIAL INH SCH (08:15)
[2017-01-18] MEDS: RT-ALBUTEROL/IPRATROPIUM 3 ML (DUONEB) VIAL INH SCH ×3 (08:36→19:59)
[2017-01-18] MEDS: guaiFENesin (MUCINEX) 600 MG TAB PO SCH ×2 (08:59→21:05)
[2017-01-18] MEDS: LORATADINE (CLARITIN) 10 MG TAB PO SCH (08:59)
[2017-01-18] MEDS: cefTRIAXone INJECTION 1,000 MG in NS (IVPB) 50 ML IV SCH (08:59)
[2017-01-18] MEDS: amLODIPine 10 MG (NORVASC) TAB PO SCH (08:59)
[2017-01-18] MEDS: methylPREDNISolone 40 MG/ML (Solu-MEDROL) VIAL IV SCH ×3 (09:00→21:05)
[2017-01-18] MEDS ORDERED: TIOTROPIUM BROMIDE (SPIRIVA) 5'S INHALER IH SCH (09:00)
[2017-01-18] MEDS: MONTELUKAST 10 MG (SINGULAIR) TAB PO SCH (09:00)
[2017-01-18] MEDS: LEVOFLOXACIN 750 MG/D5W 150 ML PRE-MIX IV SCH (09:45)
--- NOTE | 2017-01-18 10:58 | Progress Note-Hospitalist ---
Progress Note HPI/CC on Admission CC: Dyspnea HPI: This is a 61yoWM clinic patient of mine for the last 13 years that presents to the ER after transported from Dr Harvey's office for O2 sat of 77% w/ severe dyspnea. He has required three rounds of treatment with steroids and abx in the past 6 weeks that helped for a bit but then declined and status again prompting ER visit but when he saw pulmonology yesterday he was found to have O2 sat of 77 percent and transported to the emergency room. Currently he is feeling better but still on high flow Vapotherm O2 and he has not required home oxygen in the past but I do hiv counselor him on the likelihood that they'll need to be set up prior to discharge. At this time he denies any pain denies any cough and overall feels better than he did when he was admitted. Progress Notes/Assess & Plan Date Seen 01/18/17 Time Seen by Provider: 10:00 Admission Dx/Process Assessment: Acute exacerbation of COPD Chronic pneumonitis due to occupational exposure years ago Hypertension History of DVT Hyperlipidemia Seizure disorder GERD Chronic back pain Diagonsis/Assessment & Plan RT Review: Pt qualifies for 3 L because his sats drop when he sits up. Pt was previously on 2 L so those home orders have been placed director blood bank: Pt would like his CPAP from home Patient Interview: Pt was sitting upon interview Pt is a bit frustrated this morning about not receiving his home meds. Pt seems to feel that he is somewhat neglected. Physical exam stable. Lungs sound much better. Pt states that he is still producing mucus when he coughs. Pt states that Dr. Mckenzie has ordered him steroid shots. Pt denies regular BMs. Pt does not want meds for this. Home O2 discussed. Pt states that he does not want a tank to drag around and would like something more portable Pt asked if he could DC today. I informed him that we will shoot for tomorrow to make sure he is doing well enough. Pt states that Dr. Buckley wanted to send him to [place] this time and he states that he will go there if he gets sick again. AFVSS, Pleasant, improved RRR, CTAB except subtle wheezes bases No edema Laboratory Tests 01/18/17 05:55 Assessment: Acute exacerbation of COPD w/bronchitis Chronic pneumonitis due to occupational exposure years ago Hypertension History of DVT Hyperlipidemia Seizure disorder GERD Chronic back pain Plan: Reconciled home meds Monitor lung status Appreciate Dr. Mckenzie consult Monitor labs IV steroids Home O2 order placed SDCs DC tomorrow Scribed by Cathryn Kevin under the direct supervision of Dr. Leos. SHAKIRA LEOS DO Jan 18, 2017 10:58
[2017-01-18] MEDS ORDERED: RT-ALBUTEROL/IPRATROPIUM 3 ML (DUONEB) VIAL INH PRN (11:00)
[2017-01-18] MEDS ORDERED: PHENYTOIN 100 MG (DILANTIN) CAP PO SCH (14:00)
[2017-01-18 16:59] VITALS: BP 137/76
[2017-01-19] VITALS: BP 107/51
[2017-01-19] MEDS: RT-ALBUTEROL/IPRATROPIUM 3 ML (DUONEB) VIAL INH SCH ×2 (02:16→07:29)
[2017-01-19] MEDS: methylPREDNISolone 40 MG/ML (Solu-MEDROL) VIAL IV SCH ×2 (02:25→08:35)
[2017-01-19] MEDS: CATHETER FLUSH 10 ML SYR IV SCH ×2 (06:31→08:37)
[2017-01-19] MEDS: PANTOPRAZOLE 20 MG TABLET (PROTONIX) PO SCH (06:31)
[2017-01-19] MEDS: ARFORMOTEROL 15 MCG/2 ML (BROVANA) INH SOLUTIION IH SCH (07:29)
[2017-01-19] MEDS: RT-BUDESONIDE NEBS 0.5 MG/2ML (PULMICORT) AMP INH SCH (07:29)
[2017-01-19] MEDS: UMECLIDINIUM BROMIDE (INCRUSE ELLIPTA) 7'S IH SCH (07:30)
[2017-01-19] MEDS: LEVOFLOXACIN 750 MG/D5W 150 ML PRE-MIX IV SCH (08:35)
[2017-01-19] MEDS: cefTRIAXone INJECTION 1,000 MG in NS (IVPB) 50 ML IV SCH (08:35)
[2017-01-19] MEDS: amLODIPine 10 MG (NORVASC) TAB PO SCH (08:36)
[2017-01-19] MEDS: LOTEPREDNOL ETABONATE OS SCH (08:36)
[2017-01-19] MEDS: guaiFENesin (MUCINEX) 600 MG TAB PO SCH (08:37)
[2017-01-19] MEDS: MONTELUKAST 10 MG (SINGULAIR) TAB PO SCH (08:37)
[2017-01-19] MEDS: LORATADINE (CLARITIN) 10 MG TAB PO SCH (08:37)
[2017-01-19 08:40] VITALS: BP 133/66
[2017-01-19] MEDS ORDERED: PRED10TA22 PO (10:50)
[2017-01-19] MEDS ORDERED: LEVO750T9 PO (10:50)
--- NOTE | 2017-01-19 10:52 | Discharge Summary-Hospitalist ---
Diagnosis/Chief Complaint Date of Admission Jan 16, 2017 at 17:21 Date of Discharge Discharge Date: Jan 19, 2017 Admission Diagnosis Assessment: Acute exacerbation of COPD Chronic pneumonitis due to occupational exposure years ago Hypertension History of DVT Hyperlipidemia Seizure disorder GERD Chronic back pain Discharge Diagnosis Assessment: Acute exacerbation of COPD w/bronchitis Chronic pneumonitis due to occupational exposure years ago Hypertension History of DVT Hyperlipidemia Seizure disorder GERD Chronic back pain Hypoxia requiring home O2 orders RT Review: Pt qualifies for 3 L because his sats drop when he sits up. Pt was previously on 2 L so those home orders have been placed exercise instruct: Pt would like his CPAP from home Patient Interview: Pt was sitting upon interview Pt is a bit frustrated this morning about not receiving his home meds. Pt seems to feel that he is somewhat neglected. Physical exam stable. Lungs sound much better. Pt states that he is still producing mucus when he coughs. Pt states that Dr. Mckenzie has ordered him steroid shots. Pt denies regular BMs. Pt does not want meds for this. Home O2 discussed. Pt states that he does not want a tank to drag around and would like something more portable Pt asked if he could DC today. I informed him that we will shoot for tomorrow to make sure he is doing well enough. Pt states that Dr. Buckley wanted to send him to [place] this time and he states that he will go there if he gets sick again. AFVSS, Pleasant, improved RRR, CTAB except subtle wheezes bases No edema Laboratory Tests 01/18/17 05:55 Assessment: Acute exacerbation of COPD w/bronchitis Chronic pneumonitis due to occupational exposure years ago Hypertension History of DVT Hyperlipidemia Seizure disorder GERD Chronic back pain Plan: Reconciled home meds Monitor lung status Appreciate Dr. Mckenzie consult Monitor labs IV steroids Home O2 order placed SDCs DC tomorrow Scribed by Cathryn Kevin under the direct supervision of Dr. Leos. Reason Hospital Visit/Course CC: Dyspnea HPI: This is a 61yoWM clinic patient of mine for the last 13 years that presents to the ER after transported from Dr Harvey's office for O2 sat of 77% w/ severe dyspnea. He has required three rounds of treatment with steroids and abx in the past 6 weeks that helped for a bit but then declined and status again prompting ER visit but when he saw pulmonology yesterday he was found to have O2 sat of 77 percent and transported to the emergency room. Currently he is feeling better but still on high flow Vapotherm O2 and he has not required home oxygen in the past but I do clinical counselor him on the likelihood that they'll need to be set up prior to discharge. At this time he denies any pain denies any cough and overall feels better than he did when he was admitted. Note from 01/19/17: Patient ready for discharge No fever line breathing better Has all home medication at home supply okay Home oxygen set up and he will go home on 3 L Afebrile vital signs stable, pleasant, oriented 3 Regular rate and rhythm, clear to auscultation bilaterally except for decreased breath sounds in the bases and crackles but improved air expansion from yesterday No edema Hospital course: Patient had a brief hospital course he was placed on empiric IV antibiotics for acute on chronic bronchitis along with aggressive IV steroids. He met criteria for home oxygen which was set up and he will continue all of his pulmonary medication per supervisor computer operations out of [facility]. Overall patient improved enough for discharge and will be closely followed up in one week in my clinic and all medications were sent to [facility]. Discharge Summary Discharge Physical Examination Allergies: Coded Allergies: No Known Drug Allergies (Verified , 10/07/07) Vitals & I&Os Vital Signs Date Time Temp Pulse Resp B/P (MAP) Pulse Ox O2 Delivery O2 Flow Rate FiO2 01/19/17 08:41 Nasal Cannula 3.00 01/19/17 08:40 98.1 90 20 133/66 93 01/17/17 08:00 45 Hospital Course Labs (last 24 hrs) Microbiology 01/16/17 Blood Culture - Preliminary, Resulted No growth Discharge Home Medications: Active Scripts Active Levaquin (Levofloxacin) 750 Mg Tablet 750 Mg PO DAILY Prednisone 10 Mg Tab.ds.pk 10 Mg PO DAILY Take 6 tabs(60mg)daily,decrease by 1 tab(10mg)every other day. Reported Androgel (Testosterone) 75 Gm Gel.supervisor roller shop 40.5 Mg TP DAILY APPLIES 2 PUMPS OF A 20.25MG/ACTUATION (1.62%) GEL Mucinex (Guaifenesin) 600 Mg Tab.er.12h 1,200 Mg PO BID TAKES 2 (600 MG) TABLETS Lotemax (Loteprednol Etabonate) 5 Gm Drops.gel 1 Drop OS DAILY Albuterol Sulfate 2.5 Mg/3 Ml Vial.neb 2.5 Mg IH DAILY PRN Vitamin D3 (Cholecalciferol (Vitamin D3)) 2,000 Unit Capsule 2,000 Unit PO DAILY Loratadine 10 Mg Tablet 10 Mg PO DAILY Fish Oil 1,200 mg Softgel ([place]-3 Fatty Acids/Fish Oil) 1 Each Capsule 1,200 Mg PO BID Super B Complex (Vitamin B Complex & Vit C No.4) 150 Mg Tablet 150 Mg PO DAILY Centrum Silver Men Tablet (Multivit-Min/FA/Lycopen/Lutein) 1 Each Tablet 1 Tab PO DAILY Vitamin C (Ascorbic Acid) 1,000 Mg Tablet 1,000 Mg PO DAILY Phenytoin Sodium Extended 100 Mg Capsule 300 Mg PO Q48H TAKES 3 (100 MG) CAPSULES EVERY OTHER DAY ALTERNATING WITH 4 (100 MG) CAPSULES Budesonide 0.5 Mg/2 Ml Ampul.neb 0.5 Mg IH BID Perforomist (Formoterol Fumarate) 20 Mcg/2 Ml Vial.neb 20 Mcg IH BID Proair Hfa (Albuterol Sulfate) 1 Puff Puff 2 Puff IH EVERY 4-6 HOURS PRN Montelukast Sodium 10 Mg Tablet 10 Mg PO DAILY Spiriva (Tiotropium [place]) 1 Inh Aerp 1 Cap IH DAILY Amlodipine Besylate 10 Mg Tablet 10 Mg PO DAILY Omeprazole 20 Mg Capsule.dr 20 Mg PO DAILY Dilantin (Phenytoin Sodium) 100 Mg Capsule 400 Mg PO Q48H TAKES 4 (100 MG) CAPSULES EVERY OTHER DAY ALTERNATING WITH 3 (100 MG) CAPSULES Instructions to patient/family Please see electonic discharge instructions given to patient. Clinical Quality Measures DVT/VTE Risk/Contraindication: Risk Factor Score Per Nursin RFS Level Per Nursing on Admit: 4+=Very High SHAKIRA LEOS DO Jan 19, 2017 10:52
[2017-01-19 13:39] VITALS: BP 133/66
== END 2017-01-19 13:45 | disposition home or self-care (01) | DRG 192 ==
LOC: EDUNIT# 14:12 → ER 14:14 → 4TH 17:21
PROVIDERS: ADMIT Internal Medicine; ATTEND Internal Medicine
DX: J44.1 Chronic obstructive pulmonary disease with (acute) exacerbation (principal); J84.10 Pulmonary fibrosis, unspecified; R09.02 Hypoxemia; G40.909 Epilepsy, unspecified, not intractable, without status epilepticus; I10 Essential (primary) hypertension; E78.5 Hyperlipidemia, unspecified; K21.9 Gastro-esophageal reflux disease without esophagitis; M54.9 Dorsalgia, unspecified; Z87.891 Personal history of nicotine dependence
CPT/HCPCS: 36415; 71020; 80053; 81000; 83605; 85025; 85610; 85730; 87040; 94640; 94664; 94760; 94761; 96361; 96374

== ENCOUNTER → 2017-02-27 | Outpatient (CLI) | payer OTHER, MEDICARE ==
[~2017-02-27] MED LIST changes: +ALBU2.5V4 IH; +AMLO10TA2 PO; +ASCO10006 PO; +BUDE0.5A IH; +CHOL20003 PO; +FORM20VI IH; +GUAI600T43 PO; +LEVO750T9 PO; +LORA10TA7 PO; +LOTE5GEL OS; +MONT10TA24 PO; +MULT-1061 PO; +OMEG-109 PO; +OMEP20CA12 PO; +PHEN100C11 PO; +PRED10TA22 PO; +RT-ALBUINH IH; +TEST75GE3 TP; +TIOT18CA2 IH; +VITA150T PO
[2017-02-27 07:28] LABS: ALANINE AMINOTRANSFERASE 40 U/L (0-55); ALBUMIN 3.9 GM/DL (3.2-4.5); ANION GAP 10 MMOL/L (5-14); ASPARTATE AMINO TRANSFERASE 25 U/L (5-34); BILIRUBIN,TOTAL 0.3 MG/DL (0.1-1.0); BLOOD UREA NITROGEN 22 MG/DL (7-18); BUN/CREATININE RATIO 26; CALCIUM 9.8 MG/DL (8.5-10.1); CARBON DIOXIDE 22 MMOL/L (21-32); CHLORIDE 111 MMOL/L (98-107); CHOLESTEROL 186 MG/DL (< 200); CREATININE SERUM 0.85 MG/DL (0.60-1.30); GFR ESTIMATED > 60; GLUCOSE 100 MG/DL (70-105); POTASSIUM 4.2 MMOL/L (3.6-5.0); SODIUM 143 MMOL/L (135-145); TOTAL PROTEIN 7.3 GM/DL (6.4-8.2); TRIGLYCERIDES 65 MG/DL (<150)
[2017-02-27 07:48] LABS: THYROID STIMULATING HORMONE 0.58 UIU/ML (0.35-4.94)
== END ==
LOC: LAB 06:39
PROVIDERS: ATTEND Internal Medicine
DX: Z51.81 Encounter for therapeutic drug level monitoring (principal); E78.1 Pure hyperglyceridemia
CPT/HCPCS: 36415; 80053; 82465; 84403; 84443; 84478

== ENCOUNTER → 2017-06-04 | Outpatient (CLI) | payer OTHER, MEDICARE | LOC: CARD 09:06 | PROVIDERS: ATTEND Internal Medicine Cardiovascular Disease | DX: R07.89 Other chest pain (principal); I47.2 Ventricular tachycardia; I10 Essential (primary) hypertension; G47.33 Obstructive sleep apnea (adult) (pediatric); R06.02 Shortness of breath | CPT/HCPCS: 93306 ==

== ENCOUNTER → 2017-09-05 | Outpatient (CLI) | payer OTHER, MEDICARE ==
[2017-09-05 10:31] LABS: BASOPHILS # (AUTO) 0.1 10^3/uL (0.0-0.1); BASOPHILS % (AUTO) 1 % (0-10); EOSINOPHILS # (AUTO) 0.5 10^3/uL (0.0-0.3); EOSINOPHILS % (AUTO) 5 % (0-10); HEMATOCRIT 45 % (40-54); HEMOGLOBIN 15.7 G/DL (13.3-17.7); LYMPHOCYTES # (AUTO) 1.9 X 10^3 (1.0-4.0); LYMPHOCYTES % (AUTO) 21 % (12-44); MEAN CORPUSCULAR HEMOGLOBIN 32 PG (25-34); MEAN CORPUSCULAR HGB CONC 35 G/DL (32-36); MEAN CORPUSCULAR VOLUME 92 FL (80-99); MEAN PLATELET VOLUME 9.9 FL (7.4-10.4); MONOCYTES # (AUTO) 1.1 X 10^3 (0.0-1.0); MONOCYTES % (AUTO) 11 % (0-12); NEUTROPHILS # (AUTO) 5.7 X 10^3 (1.8-7.8); NEUTROPHILS % (AUTO) 62 % (42-75); PLATELET COUNT 259 10^3/uL (130-400); RED BLOOD COUNT 4.88 10^6/uL (4.35-5.85); RED CELL DISTRIBUTION WIDTH 12.9 % (10.0-14.5); WHITE BLOOD COUNT 9.3 10^3/uL (4.3-11.0)
[2017-09-05 10:55] LABS: ALANINE AMINOTRANSFERASE 47 U/L (0-55); ALBUMIN 4.2 GM/DL (3.2-4.5); ALKALINE PHOSPHATASE 69 U/L (40-136); BILIRUBIN,TOTAL 0.6 MG/DL (0.1-1.0); BUN/CREATININE RATIO 19; CALCIUM 9.5 MG/DL (8.5-10.1); CARBON DIOXIDE 24 MMOL/L (21-32); CHLORIDE 107 MMOL/L (98-107); CHOLESTEROL 188 MG/DL (< 200); CREATININE SERUM 0.98 MG/DL (0.60-1.30); GFR ESTIMATED > 60; GLUCOSE 91 MG/DL (70-105); HDL CHOLESTEROL 57 MG/DL (40-60); POTASSIUM 4.4 MMOL/L (3.6-5.0); SODIUM 141 MMOL/L (135-145); TOTAL PROTEIN 7.4 GM/DL (6.4-8.2); TRIGLYCERIDES 75 MG/DL (<150); VLDL CHOLESTEROL 15 MG/DL (5-40)
== END ==
LOC: LAB 10:13
PROVIDERS: ATTEND Internal Medicine
DX: Z00.00 Encounter for general adult medical examination without abnormal findings (principal); E78.00 Pure hypercholesterolemia, unspecified; E78.1 Pure hyperglyceridemia
CPT/HCPCS: 36415; 80053; 80061; 85025

== ENCOUNTER 2017-10-24 11:04 | Inpatient (IN) | payer OTHER, MEDICARE ==
[~2017-10-24] VITALS: Ht 172.7 cm; Wt 97.1 kg
--- OUTSIDE RECORDS SUMMARY | 2017-10-24 18:01 | XMS REPORT | Clinical Summary ---
Author Author [facility] Organization [facility] Address Unknown Phone Unavailable Care Team Providers Care Cotton Gin Yard Supervisor Name Role Phone PCP Unavailable Source Comments Some departments are not documenting in the electronic medical record. If you do not see the information that you expected, contact Release of Information in the Health Information Management department at [phone] for further assistance in locating additional records.[facility] Allergies Not on File Current Medications Not on file Active Problems Not on file Social History Tobacco Use Types Packs/Day Years Used Date Never Assessed Sex Assigned at Date Recorded Not on file Last Filed Vital Signs Not on file Plan of Treatment Health Maintenance Due Date Last Done Comments HEPATITIS C SCREENING 1954 PHYSICAL (COMPREHENSIVE) 1961 EXAM PERTUSSIS VACCINE 1965 HIV SCREENING 1969 TETANUS VACCINE 10/05/1971 COLORECTAL CANCER 2004 SCREENING SHINGLES VACCINE 2014 INFLUENZA VACCINE 04/14/2018 Results Not on filefrom Last 3 Months
--- OUTSIDE RECORDS SUMMARY | 2017-10-24 18:01 | XMS REPORT ---
Author Author LESLIE RAMIREZ [facility] Address [address] [place] [address] Care Team Providers Care Sliver Former Name Role Phone LESLIE RAMIREZ Unavailable PROBLEMS Type Condition ICD9-CM Code [id number] Code Onset Dates Condition Status SNOMED Code Problem Dysthymic disorder F34.1 Active 69429536 ALLERGIES No Information SOCIAL HISTORY Never Assessed PLAN OF CARE Activity Details Follow Up 4 Weeks Reason: VITAL SIGNS MEDICATIONS Unknown Medications RESULTS No Results PROCEDURES Procedure Date Ordered Result Body Site Psychotherapy, patient &/family, 45 minutes, established patient Sep 07, 2016 IMMUNIZATIONS No Known Immunizations
[2017-10-24 18:02] VITALS: BP 113/71
--- OUTSIDE RECORDS SUMMARY | 2017-10-24 18:02 | XMS REPORT ---
Author Author LESLIE RAMIREZ [facility] Address [address] [place] [address] Care Team Providers Care Feed Mill Lab Technician Name Role Phone LESLIE RAMIREZ Unavailable PROBLEMS Type Condition ICD9-CM Code [id number] Code Onset Dates Condition Status SNOMED Code Problem Dysthymic disorder F34.1 Active [id number] ALLERGIES Unknown Allergies SOCIAL HISTORY No smoking Hx information available PLAN OF CARE Activity Details Follow Up 2 Weeks Reason: VITAL SIGNS MEDICATIONS Unknown Medications RESULTS No Results PROCEDURES Procedure Date Ordered Related Diagnosis Body Site Psychotherapy, patient &/family, 45 minutes, established patient Aug 07, 2016 IMMUNIZATIONS No Known Immunizations
--- OUTSIDE RECORDS SUMMARY | 2017-10-24 18:03 | XMS REPORT ---
Author Author LESLIE RAMIREZ [facility] Address [address] [place] [address] Care Team Providers Care Milk Pasteurizer Name Role Phone LESLIE RAMIREZ Unavailable PROBLEMS Type Condition ICD9-CM Code [id number] Code Onset Dates Condition Status SNOMED Code Problem Dysthymic disorder F34.1 Active [id number] ALLERGIES No Information SOCIAL HISTORY Never Assessed PLAN OF CARE Activity Details Follow Up 4 Weeks Reason: VITAL SIGNS MEDICATIONS Unknown Medications RESULTS No Results PROCEDURES Procedure Date Ordered Result Body Site Psychotherapy, patient &/family, 45 minutes, established patient December 12, 2016 IMMUNIZATIONS No Known Immunizations
--- OUTSIDE RECORDS SUMMARY | 2017-10-24 18:04 | XMS REPORT ---
Author Author LESLIE RAMIREZ [facility] Address [address] [place] [address] Care Team Providers Care Coordinator Integrated Marketing Name Role Phone LESLIE RAMIREZ Unavailable PROBLEMS Type Condition ICD9-CM Code [id number] Code Onset Dates Condition Status SNOMED Code Problem Dysthymic disorder F34.1 Active [id number] ALLERGIES Unknown Allergies SOCIAL HISTORY No smoking Hx information available PLAN OF CARE Activity Details Follow Up 2 Weeks Reason: VITAL SIGNS MEDICATIONS Unknown Medications RESULTS No Results PROCEDURES Procedure Date Ordered Related Diagnosis Body Site Psychotherapy, patient &/family, 45 minutes, established patient Jul 03, 2016 IMMUNIZATIONS No Known Immunizations
--- OUTSIDE RECORDS SUMMARY | 2017-10-24 18:06 | XMS REPORT | Continuity of Care Document ---
Author Author [facility] Address Unknown Phone Unavailable Allergies Active Description Code Type Severity Reaction Onset Reported/Identified Relationship to Patient Clinical Status Yes No Known Drug Allergies [id number] Drug Allergy Unknown N/A 10/07/2007 Medications There is no data. Problems Date Dx Coded Attending Type Code [...] MO DYSTHYMIC DISORDER 11/06/2013 ASIA MALAVE PHD D 300.4 MO DYSTHYMIC DISORDER 11/06/2013 FRIEDA PHD, ASIA Lambert 300.4 MO DYSTHYMIC DISORDER 11/06/2013 FRIEDA PHD, ASIA Lambert 300.4 MO DYSTHYMIC DISORDER 11/06/2013 FRIEDA PHD, ASIA Lambert 300.4 MO DYSTHYMIC DISORDER 11/06/2013 FRIEDA PHD, ASIA Lambert 300.4 MO DYSTHYMIC DISORDER 11/06/2013 FRIEDA PHD, ASIA Lambert 300.4 MO DYSTHYMIC DISORDER 11/06/2013 JAYSHREE TRUJILLO, JESSICA Stoddard 300.4 MO DYSTHYMIC DISORDER 11/06/2013 JAYSHREE PHD, JESSICA Stoddard 300.4 MO DYSTHYMIC DISORDER 11/11/2013 HENRIQUE TERRAZAS Ot 327.23 OBSTRUCTIVE SLEEP APNEA (ADULT) (PEDIATR 11/11/2013 HENRIQUE TERRAZASP Ot 785.0 TACHYCARDIA NOS 03/01/2014 SUHA DE LA ROSA MD Ot 327.23 OBSTRUCTIVE SLEEP APNEA (ADULT) (PEDIATR 03/01/2014 SUHA DE LA ROSA MD Ot 401.9 HYPERTENSION NOS 03/01/2014 SUHA DE LA ROSA MD Ot 496 CHR AIRWAY OBSTRUCT NEC 07/02/2014 BREONNA MATAMOROS, YASMINE S Ot 453.40 07/12/2014 BREONNA MATAMOROS, YASMINE S Ot 453.40 07/29/2014 MAYORGA DO, SHAKIRA Ot 272.0 07/29/2014 MAYORGA DO, SHAKIRA Ot 401.1 07/29/2014 MAYORGA DO, SHAKIRA Ot 496 07/29/2014 MAYORGA DO, SHAKIRA Ot V58.69 07/29/2014 MAYORGA DO, SHAKIRA Ot V58.83 07/29/2014 MAYORGA DO, SHAKIRA Ot V70.0 08/04/2014 BREONNA MATAMOROS, YASMINE S Ot 453.40 08/11/2014 BREONNA MATAMOROS, YASMINE S Ot 493.20 08/19/2014 MAYORGA DO, SHAKIRA Ot 272.0 08/19/2014 MAYORGA DO, SHAKIRA Ot 401.1 08/19/2014 MAYORGA DO, SHAKIRA Ot 496 08/19/2014 MAYORGA DO, SHAKIRA Ot V58.69 08/19/2014 MAYORGA DO, SHAKIRA Ot V58.83 08/19/2014 MAYORGA DO, SHAKIRA Ot V70.0 09/03/2014 RJ MATAMOROS, SUHA Phan Ot 327.23 09/03/2014 RJ MATAMOROS, SUHA Phan Ot 401.9 09/03/2014 RJ MATAMOROS, SUHA Phan Ot 429.3 09/03/2014 RJ MATAMOROS, SUHA Phan Ot 786.09 12/11/2014 RJ MATAMOROS, SUHA Phan Ot 327.23 12/11/2014 RJ MATAMOROS, SUHA Phan Ot 401.9 12/11/2014 RJ MATAMOROS, SUHA Phan Ot 429.3 12/11/2014 RJ MATAMOROS, SUHA Phan Ot 786.09 01/04/2015 MAYORGA DO, SHAKIRA Ot V01.1 02/23/2015 MAYORGA DO, SHAKIRA Ot 272.0 02/23/2015 MAYORGA DO, SHAKIRA Ot 401.1 02/23/2015 MAYORGA DO, SHAKIRA Ot 429.3 02/23/2015 MAYORGA DO, SHAKIRA Ot 453.40 02/23/2015 MAYORGA DO, SHAKIRA Ot 459.30 02/23/2015 MAYORGA DO, SHAKIRA Ot 496 02/23/2015 MAYORGA DO, SHAKIRA Ot 729.5 02/23/2015 MAYORGA DO, SHAKIRA Ot 780.39 02/23/2015 MAYORGA DO, SHAKIRA Ot 782.3 02/23/2015 MAYORGA DO, SHAKIRA Ot V15.82 02/23/2015 MAYORGA DO, SHAKIRA Ot V58.69 02/23/2015 MAYORGA DO, SHAKIRA Ot V70.0 03/17/2015 BREONNA MATAMOROS, YASMINE Packer Ot 453.40 03/01/2016 MAYORGA DO, SHAKIRA Ot E78.0 PURE HYPERCHOLESTEROLEMIA 03/01/2016 MAYORAG DO SHAKIRA Ot 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 03/01/2016 MAYORGA DO SHAKIRA Ot Z00.00 ENCNTR FOR GENERAL ADULT MEDICAL EXAM W03/01/2016 DAFNE FRAIRE SHAKIRA Ot Z51.81 ENCOUNTER FOR THERAPEUTIC DRUG LEVEL MON 03/01/2016 DAFNE FRAIRE SHAKIRA Ot Z79.899 OTHER ALF (CURRENT) DRUG THERAPY 03/23/2016 DAFNE FRAIRE SHAKIRA Ot E78.0 PURE HYPERCHOLESTEROLEMIA 03/23/2016 DAFNE FRAIRE SHAKIRA Ot 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 03/23/2016 SHAKIRA MAYORGA DO Ot Z00.00 ENCNTR FOR GENERAL ADULT MEDICAL EXAM W03/23/2016 SHAKRIA MAYORGA DO Ot Z51.81 ENCOUNTER FOR THERAPEUTIC DRUG LEVEL MON 03/23/2016 SHAKIRA MAYORGA DO Ot Z79.899 OTHER ALF (CURRENT) DRUG THERAPY 06/18/2016 Ot 496 CHR [...] SUHA Phan Ot 272.4 HYPERLIPIDEMIA NEC/NOS 08/23/2016 BREONNA MATAMOROS, YASMINE S Ot 453.40 ACUTE VENOUS EMBOLISM THROMBOSIS UNSP 08/23/2016 SHAKIRA MAYORGA DO Ot 272.0 PURE HYPERCHOLESTEROLEM 08/23/2016 SHAKIRA MAYORGA DO Ot 345.90 EPILEPSY UNSPEC W/O MENTION INTRACTABLE 08/23/2016 SHAKIRA MAYORGA DO Ot 401.1 BENIGN HYPERTENSION 08/23/2016 SHAKIRA MAYORGA DO Ot 496 CHR AIRWAY OBSTRUCT NEC 08/23/2016 SHAKIRA MAYORGA DO Ot V58.61 ANTICOAGULANTS,LT,CURRENT USE 08/23/2016 BREONNAYASMINE MCNEILL MD Ot 453.40 ACUTE VENOUS EMBOLISM THROMBOSIS UNSP 08/23/2016 YASMINE RAVI MD Ot 453.40 ACUTE VENOUS EMBOLISM THROMBOSIS UNSP 08/23/2016 SUHA DE LA ROSA MD Ot 327.23 OBSTRUCTIVE SLEEP APNEA (ADULT) (PEDIATR 08/23/2016 SUHA DE LA ROSA MD Ot 401.9 HYPERTENSION NOS 08/23/2016 RJ MATAMOROS, SUHA Phan Ot 496 CHR AIRWAY OBSTRUCT NEC 08/23/2016 SUHA DE LA ROSA MD Ot 786.09 RESPIRATORY ABNORM NEC 08/23/2016 YASMINE RAVI MD Ot 453.40 ACUTE VENOUS EMBOLISM THROMBOSIS UNSP 08/23/2016 SHAKIRA MAYORGA DO Ot 272.0 PURE HYPERCHOLESTEROLEM 08/23/2016 SHAKIRA MAYORGA DO Ot 345.90 EPILEPSY UNSPEC W/O MENTION INTRACTABLE 08/23/2016 SHAKIRA MAYORGA DO Ot 401.1 BENIGN HYPERTENSION 08/23/2016 SHAKIRA MAYORGA DO Ot 429.3 CARDIOMEGALY 08/23/2016 SHAKIRA MAYORGA DO Ot 453.40 ACUTE VENOUS EMBOLISM THROMBOSIS UNSP 08/23/2016 SHAKIRA MAYORGA DO Ot 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 08/23/2016 SHAKIRA MAYORGA DO Ot 496 CHR AIRWAY OBSTRUCT NEC 08/23/2016 SHAKIRA MAYORGA DO Ot 706.2 SEBACEOUS CYST 08/23/2016 SHAKIRA MAYORGA DO Ot 729.5 PAIN IN LIMB 08/23/2016 SHAKIRA MAYORGA DO Ot 782.3 EDEMA 08/23/2016 SHAKIRA MAYORGA DO Ot V58.61 ANTICOAGULANTS,LT,CURRENT USE 08/23/2016 SHAKIRA MAYORGA DO Ot V58.83 ENCOUNTER FOR THERAPEUTIC DRUG MONITORIN 08/23/2016 SHAKIRA MAYORGA DO Ot V70.0 ROUTINE MEDICAL EXAM 08/23/2016 YASMINE RAVI MD Ot 453.40 ACUTE VENOUS EMBOLISM THROMBOSIS UNSP 08/23/2016 Ot 327.23 OBSTRUCTIVE SLEEP APNEA (ADULT) (PEDIATR 08/23/2016 Ot 401.9 HYPERTENSION NOS 08/23/2016 Ot 496 CHR AIRWAY OBSTRUCT NEC 08/23/2016 YASMINE RAVI MD Ot 453.40 ACUTE VENOUS EMBOLISM THROMBOSIS UNSP 08/23/2016 YASMINE RAVI MD Ot 453.40 ACUTE VENOUS EMBOLISM THROMBOSIS UNSP 08/23/2016 SHAKIRA MAYORGA DO Ot 272.0 PURE HYPERCHOLESTEROLEM 08/23/2016 ROSANGELA MAYORGA DOI Ot 401.1 BENIGN HYPERTENSION 08/23/2016 SHAKIRA MAYORGA DO Ot 496 CHR AIRWAY OBSTRUCT NEC 08/23/2016 SHAKIRA MAYORGA DO Ot V58.69 OT MED,LT,CURRENT USE 08/23/2016 SHAKIRA MAYORGA DO Ot V58.83 ENCOUNTER FOR THERAPEUTIC DRUG MONITORIN 08/23/2016 SHAKIRA MAYORGA DO Ot V70.0 ROUTINE MEDICAL EXAM 08/23/2016 RJ MATAMOROS, SUHA Phan Ot 327.23 OBSTRUCTIVE SLEEP APNEA (ADULT) (PEDIATR 08/23/2016 RJ MATAMOROS, SUHA Phan Ot 401.9 HYPERTENSION NOS 08/23/2016 RJ MATAMOROS, SUHA Phan Ot 429.3 CARDIOMEGALY 08/23/2016 SUHA DE LA ROSA MD Ot 786.09 RESPIRATORY ABNORM NEC 08/23/2016 BREONNA MATAMOROS, YASMINE S Ot 493.20 CHRONIC OBSTRUCTIVE ASTHMA, NOS 08/23/2016 SHAKIRA MAYORGA DO Ot V01.1 TUBERCULOSIS CONTACT 08/23/2016 SHAKIRA MAYORGA DO Ot 272.0 PURE HYPERCHOLESTEROLEM 08/23/2016 SHAKIRA MAYORGA DO Ot 401.1 BENIGN HYPERTENSION 08/23/2016 ROSANGELA MAYORGA DOI Ot 429.3 CARDIOMEGALY 08/23/2016 ROSANGELA MAYORGA DOI Ot 453.40 ACUTE VENOUS EMBOLISM THROMBOSIS UNSP 08/23/2016 ROSANGELA MAYORGA DOI Ot 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 08/23/2016 SHAKIRA MAYORGA DO Ot 496 CHR AIRWAY OBSTRUCT NEC 08/23/2016 SHAKIRA MAYORGA DO Ot 729.5 PAIN IN LIMB 08/23/2016 SHAKIRA MAYORGA DO Ot 780.39 OTHER CONVULSIONS 08/23/2016 SHAKIRA MAYORGA DO Ot 782.3 EDEMA 08/23/2016 SHAKIRA MAYORGA DO Ot V15.82 HISTORY OF TOBACCO USE 08/23/2016 SHAKIRA MAYORGA DO Ot V58.69 OT MED,LT,CURRENT USE 08/23/2016 SHAKIRA MAYORGA DO Ot V70.0 ROUTINE MEDICAL EXAM 08/23/2016 SHAKIRA MAYORGA DO Ot E78.0 PURE HYPERCHOLESTEROLEMIA 08/23/2016 MAYORGA DO, SHAKIRA Ot 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 08/23/2016 MAYORGA DO SHAKIRA Ot Z00.00 ENCNTR FOR GENERAL ADULT MEDICAL EXAM 08/23/2016 DAFNE DO SHAKIRA Ot Z51.81 ENCOUNTER FOR THERAPEUTIC DRUG LEVEL Sat08/23/2016 DAFNE FRAIRE SHAKIRA Ot Z79.899 OTHER DIRECTOR OF BUSINESS DEVELOPMENT (CURRENT) DRUG THERAPY 08/24/2016 KASIA CABA Ot E78.2 MIXED HYPERLIPIDEMIA 08/24/2016 DAFNE DO SHAKIRA Ot E78.00 PURE HYPERCHOLESTEROLEMIA, UNSPECIFIED 08/24/2016 DAFNE DO SHAKIRA Ot 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 08/24/2016 DAFNE DO SHAKIRA Ot Z00.00 ENCNTR FOR GENERAL ADULT MEDICAL EXAM 08/24/2016 DAFNE FRAIRE SHAKIRA Ot Z51.81 ENCOUNTER FOR THERAPEUTIC DRUG LEVEL Sat08/24/2016 DAFNE FRAIRE SHAKIRA Ot Z79.899 OTHER ALF (CURRENT) DRUG THERAPY 09/19/2016 KASIA CABA Ot E78.2 MIXED HYPERLIPIDEMIA 10/26/2016 DAFNE FRAIRE SHAKIRA Ot E78.00 PURE HYPERCHOLESTEROLEMIA, UNSPECIFIED 10/26/2016 DAFNE DO SHAKIRA Ot 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 10/26/2016 DAFNE FRAIRE SHAKIRA Ot Z00.00 ENCNTR FOR GENERAL ADULT MEDICAL EXAM 10/26/2016 DAFNE FRAIRE SHAKIRA Ot Z51.81 ENCOUNTER FOR THERAPEUTIC DRUG LEVEL Sat10/26/2016 ROSANGELA MAYORGA DOI Ot Z79.899 OTHER DIRECTOR OF BUSINESS DEVELOPMENT (CURRENT) DRUG THERAPY 10/30/2016 KASIA CABA Ot E78.2 MIXED HYPERLIPIDEMIA 01/18/2017 DAFNE FRAIRE SHAKIRA Ot E78.5 HYPERLIPIDEMIA, UNSPECIFIED 01/18/2017 ROSANGELA MAYORGA DOI Ot G40.909 EPILEPSY, UNSP, NOT INTRACTABLE, WITHOUT 01/18/2017 ROSANGELA MAYORGA DOI Ot I10 ESSENTIAL (PRIMARY) HYPERTENSION 01/18/2017 ROSANGELA MAYORGA DOI Ot J44.1 CHRONIC OBSTRUCTIVE PULMONARY DISEASE W 01/18/2017 ROSANGELA MAYORGA DOI Ot J84.10 PULMONARY FIBROSIS, UNSPECIFIED 01/18/2017 SHAKIRA MAYORGA DO Ot K21.9 GASTRO-ESOPHAGEAL REFLUX DISEASE WITHOUT 01/18/2017 SHAKIRA MAYORGA DO Ot M54.9 DORSALGIA, UNSPECIFIED 01/18/2017 SHAKIRA MAYORGA DO Ot R09.02 HYPOXEMIA 01/18/2017 SHAKIRA MAYORGA DO Ot Z87.891 PERSONAL HISTORY OF NICOTINE DEPENDENCE 01/19/2017 SHAKIRA MAYORGA DO Ot E78.5 HYPERLIPIDEMIA, UNSPECIFIED 01/19/2017 SHAKIRA MAYORGA DO Ot G40.909 EPILEPSY, UNSP, NOT INTRACTABLE, WITHOUT 01/19/2017 SHAKIRA MAYORGA DO Ot I10 ESSENTIAL (PRIMARY) HYPERTENSION 01/19/2017 SHAKIRA MAYORGA DO Ot J44.1 CHRONIC OBSTRUCTIVE PULMONARY DISEASE W 01/19/2017 SHAKIRA MAYORGA DO Ot J84.10 PULMONARY FIBROSIS, UNSPECIFIED 01/19/2017 SHAKIRA MAYORGA DO Ot K21.9 GASTRO-ESOPHAGEAL REFLUX DISEASE WITHOUT 01/19/2017 SHAKIRA MAYORGA DO Ot M54.9 DORSALGIA, UNSPECIFIED 01/19/2017 SHAKIRA MAYORGA DO Ot R09.02 HYPOXEMIA 01/19/2017 SHAKIRA MAYORGA DO Ot Z87.891 PERSONAL HISTORY OF NICOTINE DEPENDENCE 02/27/2017 SHAKIRA MAYORGA DO Ot 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 02/27/2017 SHAKIRA MAYORGA DO Ot Z51.81 ENCOUNTER FOR THERAPEUTIC DRUG LEVEL MON 03/20/2017 SHAKIRA MAYORGA DO Ot 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 03/20/2017 SHAKIRA MAYORGA DO Ot Z51.81 ENCOUNTER FOR THERAPEUTIC DRUG LEVEL MON 05/28/2017 Ot V58.61 05/28/2017 Ot V58.83 05/28/2017 Ot 272.4 HYPERLIPIDEMIA NEC/NOS 05/28/2017 Ot 401.9 HYPERTENSION NOS 05/28/2017 Ot 257.2 TESTICULAR HYPOFUNC NEC 05/28/2017 Ot 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 05/28/2017 Ot 401.1 BENIGN HYPERTENSION 05/28/2017 Ot 790.29 OTHER ABNORMAL GLUCOSE 05/28/2017 Ot 496 CHR AIRWAY OBSTRUCT NEC 05/28/2017 RJ MATAMOROS, SUHA Phan Ot 272.4 HYPERLIPIDEMIA NEC/NOS 05/28/2017 BREONNA MATAMOROS, YASMINE S Ot 453.40 ACUTE VENOUS EMBOLISM THROMBOSIS UNSP 05/28/2017 SHAKIRA MAYORGA DO Ot 272.0 PURE HYPERCHOLESTEROLEM 05/28/2017 ROSANGELA MAYORGA DOI Ot 345.90 EPILEPSY UNSPEC W/O MENTION INTRACTABLE 05/28/2017 ROSANGELA MAYORGA DOI Ot 401.1 BENIGN HYPERTENSION 05/28/2017 ROSANGELA MAYORGA DOI Ot 496 CHR AIRWAY OBSTRUCT NEC 05/28/2017 SHAKIRA MAYORGA DO Ot V58.61 ANTICOAGULANTS,LT,CURRENT USE 05/28/2017 YASMINE RAVI MD S Ot 453.40 ACUTE VENOUS EMBOLISM THROMBOSIS UNSP 05/28/2017 YASMINE RAVI MD S Ot 453.40 ACUTE VENOUS EMBOLISM THROMBOSIS UNSP 05/28/2017 RJ MATAMOROS, SUHA Phan Ot 327.23 OBSTRUCTIVE SLEEP APNEA (ADULT) (PEDIATR 05/28/2017 RJ MATAMOROS, SUHA Phan Ot 401.9 HYPERTENSION NOS 05/28/2017 SUHA DE LA ROSA MD Ot 496 CHR AIRWAY OBSTRUCT NEC 05/28/2017 SUHA DE LA ROSA MD Ot 786.09 RESPIRATORY ABNORM NEC 05/28/2017 YASMINE RAVI MD S Ot 453.40 ACUTE VENOUS EMBOLISM THROMBOSIS UNSP 05/28/2017 SHAKIRA MAYORGA DO Ot 272.0 PURE HYPERCHOLESTEROLEM 05/28/2017 ROSANGELA MAYORGA DOI Ot 345.90 EPILEPSY UNSPEC W/O MENTION INTRACTABLE 05/28/2017 SHAKIRA MAYORGA DO Ot 401.1 BENIGN HYPERTENSION 05/28/2017 SHAKIRA MAYORGA DO Ot 429.3 CARDIOMEGALY 05/28/2017 ROSANGELA MAYORGA DOI Ot 453.40 ACUTE VENOUS EMBOLISM THROMBOSIS UNSP 05/28/2017 SHAKIRA MAYORGA DO Ot 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 05/28/2017 ROSANGELA MAYORGA DOI Ot 496 CHR AIRWAY OBSTRUCT NEC 05/28/2017 SHAKIRA MAYORGA DO Ot 706.2 SEBACEOUS CYST 05/28/2017 SHAKIRA MAYORGA DO Ot 729.5 PAIN IN LIMB 05/28/2017 SHAKIRA MAYORGA DO Ot 782.3 EDEMA 05/28/2017 SHAKIRA MAYORGA DO Ot V58.61 ANTICOAGULANTS,LT,CURRENT USE 05/28/2017 SHAKIRA MAYORGA DO Ot V58.83 ENCOUNTER FOR THERAPEUTIC DRUG MONITORIN 05/28/2017 SHAKIRA MAYORGA DO Ot V70.0 ROUTINE MEDICAL EXAM 05/28/2017 BREONNA MATAMOROS, YASMINE S Ot 453.40 ACUTE VENOUS EMBOLISM THROMBOSIS UNSP 05/28/2017 Ot 327.23 OBSTRUCTIVE SLEEP APNEA (ADULT) (PEDIATR 05/28/2017 Ot 401.9 HYPERTENSION NOS 05/28/2017 Ot 496 CHR AIRWAY OBSTRUCT NEC 05/28/2017 BREONNA MATAMOROS, YASMINE S Ot 453.40 ACUTE VENOUS EMBOLISM THROMBOSIS UNSP 05/28/2017 BREONNA MATAMOROS, YASMINE S Ot 453.40 ACUTE VENOUS EMBOLISM THROMBOSIS UNSP 05/28/2017 SHAKIRA MAYORGA DO Ot 272.0 PURE HYPERCHOLESTEROLEM 05/28/2017 DAFNE FRAIRE SHAKIRA Ot 401.1 BENIGN HYPERTENSION 05/28/2017 SHAKIRA MAYORGA DO Ot 496 CHR AIRWAY OBSTRUCT NEC 05/28/2017 SHAKIRA MAYORGA DO Ot V58.69 OT MED,LT,CURRENT USE 05/28/2017 SHAKIRA MAYORGA DO Ot V58.83 ENCOUNTER FOR THERAPEUTIC DRUG MONITORIN 05/28/2017 SHAKIRA MAYORGA DO Ot V70.0 ROUTINE MEDICAL EXAM 05/28/2017 RJ MATAMOROS, SUHA Phan Ot 327.23 OBSTRUCTIVE SLEEP APNEA (ADULT) (PEDIATR 05/28/2017 RJ MATAMOROS, SUHA Phan Ot 401.9 HYPERTENSION NOS 05/28/2017 RJ MATAMOROS, SUHA Phan Ot 429.3 CARDIOMEGALY 05/28/2017 RJ MATAMOROS, SUHA Phan Ot 786.09 RESPIRATORY ABNORM NEC 05/28/2017 BREONNA MATAMOROS, YASMINE S Ot 493.20 CHRONIC OBSTRUCTIVE ASTHMA, NOS 05/28/2017 SHAKIRA MAYORGA DO Ot V01.1 TUBERCULOSIS CONTACT 05/28/2017 SHAKIRA MAYORGA DO Ot 272.0 PURE HYPERCHOLESTEROLEM 05/28/2017 DAFNE FRAIRE SHAKIRA Ot 401.1 BENIGN HYPERTENSION 05/28/2017 DAFNE FRAIRE SHAKIRA Ot 429.3 CARDIOMEGALY 05/28/2017 SHAKIRA MAYORGA DO Ot 453.40 ACUTE VENOUS EMBOLISM THROMBOSIS UNSP 05/28/2017 SHAKIRA MAYORGA DO Ot 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 05/28/2017 ROSANGELA MAYORGA DOI Ot 496 CHR AIRWAY OBSTRUCT NEC 05/28/2017 SHAKIRA MAYORGA DO Ot 729.5 PAIN IN LIMB 05/28/2017 MAYORGA DO, SHAKIRA Ot 780.39 OTHER CONVULSIONS 05/28/2017 MAYORGAROSANGELA MINAYA DOI Ot 782.3 EDEMA 05/28/2017 SHAKIRA MAYORGA DO Ot V15.82 HISTORY OF TOBACCO USE 05/28/2017 SHAKIRA MAYORGA DO Ot V58.69 OTH MED,LT,CURRENT USE 05/28/2017 ROSANGELA MAYORGA DOI Ot V70.0 ROUTINE MEDICAL EXAM 05/28/2017 ROSANGELA MAYORGA DOI Ot E78.0 PURE HYPERCHOLESTEROLEMIA 05/28/2017 DAFNE FRAIRE SHAKIRA Ot 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 05/28/2017 MAYORGAREI FRAIRE SHAKIRA Ot Z00.00 ENCNTR FOR GENERAL ADULT MEDICAL EXAM W05/28/2017 ROSANGELA MAYORGA DOI Ot Z51.81 ENCOUNTER FOR THERAPEUTIC DRUG LEVEL MON 05/28/2017 ROSANGELA MAYORGA DOI Ot Z79.899 OTHER DIRECTOR OF BUSINESS DEVELOPMENT (CURRENT) DRUG THERAPY 05/28/2017 KASIA CABA Ot E78.2 MIXED HYPERLIPIDEMIA 05/28/2017 DAFNE FRAIRE SHAKIRA Ot E78.00 PURE HYPERCHOLESTEROLEMIA, UNSPECIFIED 05/28/2017 MAYORGAREI FRAIRE SHAKIRA Ot 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 05/28/2017 MAYORGAREI FRAIRE SHAKIRA Ot Z00.00 ENCNTR FOR GENERAL ADULT MEDICAL EXAM W05/28/2017 ROSANGELA MAYORGA DOI Ot Z51.81 ENCOUNTER FOR THERAPEUTIC DRUG LEVEL MON 05/28/2017 DAFNE FRAIRE SHAKIRA Ot Z79.899 OTHER DIRECTOR OF BUSINESS DEVELOPMENT (CURRENT) DRUG THERAPY 05/28/2017 ROSANGELA MAYORGA DOI Ot 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 05/28/2017 ROSANGELA MAYORGA DOI Ot Z51.81 ENCOUNTER FOR THERAPEUTIC DRUG LEVEL MON 06/03/2017 Benoit Desouza 496 CHRONIC AIRWAY OBSTRUCTION, NOT ELSEWHERE CLASSIFIED 06/03/2017 Benoit Desouza J44.9 CHRONIC OBSTRUCTIVE PULMONARY DISEASE, UNSPECIFIED 06/27/2017 SUHA DE LA ROSA MD Ot G47.33 OBSTRUCTIVE SLEEP APNEA (ADULT) (PEDIATR 06/27/2017 SUHA DE LA ROSA MD Ot I10 ESSENTIAL (PRIMARY) HYPERTENSION 06/27/2017 SUHA DE LA ROSA MD Ot I47.2 VENTRICULAR TACHYCARDIA 06/27/2017 SUHA DE LA ROSA MD Ot R06.02 SHORTNESS OF BREATH 06/27/2017 RJ MATAMOROS, SUHA Phan Ot R07.89 OTHER CHEST PAIN 09/05/2017 Ot V58.61 09/05/2017 Ot V58.83 09/05/2017 Ot 496 CHR AIRWAY OBSTRUCT NEC 09/05/2017 RJ MATAMOROS, SUHA Phan Ot 272.4 HYPERLIPIDEMIA NEC/NOS 09/05/2017 BREONNA MATAMOROS, YASMINE S Ot 453.40 ACUTE VENOUS EMBOLISM THROMBOSIS UNSP 09/05/2017 SHAKIRA MAYORGA DO Ot 272.0 PURE HYPERCHOLESTEROLEM 09/05/2017 DAFNE FRAIRE SHAKIRA Ot 345.90 EPILEPSY UNSPEC W/O MENTION INTRACTABLE 09/05/2017 DAFNE FRAIRE SHAKIRA Ot 401.1 BENIGN HYPERTENSION 09/05/2017 SHAKIRA MAYORGA DO Ot 496 CHR AIRWAY OBSTRUCT NEC 09/05/2017 SHAKIRA MAYORGA DO Ot V58.61 ANTICOAGULANTS,LT,CURRENT USE 09/05/2017 BREONNA MATAMOROS, YASMINE S Ot 453.40 ACUTE VENOUS EMBOLISM THROMBOSIS UNSP 09/05/2017 BREONNA MATAMOROS, YASMINE S Ot 453.40 ACUTE VENOUS EMBOLISM THROMBOSIS UNSP 09/05/2017 RJ MATAMOROS, SUHA Phan Ot 327.23 OBSTRUCTIVE SLEEP APNEA (ADULT) (PEDIATR 09/05/2017 RJ MATAMOROS, SUHA Phan Ot 401.9 HYPERTENSION NOS 09/05/2017 RJ MATAMOROS, SUHA Phan Ot 496 CHR AIRWAY OBSTRUCT NEC 09/05/2017 SUHA DE LA ROSA MD Ot 786.09 RESPIRATORY ABNORM NEC 09/05/2017 BREONNA MATAMOROS, YASMINE S Ot 453.40 ACUTE VENOUS EMBOLISM THROMBOSIS UNSP 09/05/2017 SHAKIRA MAYORGA DO Ot 272.0 PURE HYPERCHOLESTEROLEM 09/05/2017 SHAKIRA MAYORGA DO Ot 345.90 EPILEPSY UNSPEC W/O MENTION INTRACTABLE 09/05/2017 SHAKIRA MAYORGA DO Ot 401.1 BENIGN HYPERTENSION 09/05/2017 SHAKIRA MAYORGA DO Ot 429.3 CARDIOMEGALY 09/05/2017 SHAKIRA MAYORGA DO Ot 453.40 ACUTE VENOUS EMBOLISM THROMBOSIS UNSP 09/05/2017 SHAKIRA MAYORGA DO Ot 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 09/05/2017 DAFNE FRAIRE SHAKIRA Ot 496 CHR AIRWAY OBSTRUCT NEC 09/05/2017 SHAKIRA MAYORGA DO Ot 706.2 SEBACEOUS CYST 09/05/2017 ROSANGELA MAYORGA DOI Ot 729.5 PAIN IN LIMB 09/05/2017 DAFNE FRAIRE SHAKIRA Ot 782.3 EDEMA 09/05/2017 DAFNE FRAIRE SHAKIRA Ot V58.61 ANTICOAGULANTS,LT,CURRENT USE 09/05/2017 MAYORGA DO SHAKIRA Ot V58.83 ENCOUNTER FOR THERAPEUTIC DRUG MONITORIN 09/05/2017 DAFNE FRAIRE SHAKIRA Ot V70.0 ROUTINE MEDICAL EXAM 09/05/2017 BREONNA MATAMOROS, YASMINE S Ot 453.40 ACUTE VENOUS EMBOLISM THROMBOSIS UNSP 09/05/2017 Ot 327.23 OBSTRUCTIVE SLEEP APNEA (ADULT) (PEDIATR 09/05/2017 Ot 401.9 HYPERTENSION NOS 09/05/2017 Ot 496 CHR AIRWAY OBSTRUCT NEC 09/05/2017 BREONNA MATAMOROS, YASMINE S Ot 453.40 ACUTE VENOUS EMBOLISM THROMBOSIS UNSP 09/05/2017 BREONNA MATAMOROS, YASMINE S Ot 453.40 ACUTE VENOUS EMBOLISM THROMBOSIS UNSP 09/05/2017 DAFNE FRAIRE SHAKIRA Ot 272.0 PURE HYPERCHOLESTEROLEM 09/05/2017 DAFNE FRAIRE SHAKIRA Ot 401.1 BENIGN HYPERTENSION 09/05/2017 DAFNE FRAIRE SHAKIRA Ot 496 CHR AIRWAY OBSTRUCT NEC 09/05/2017 DAFNE FRAIRE SHAKIRA Ot V58.69 OTH MED,LT,CURRENT USE 09/05/2017 DAFNE FRAIRE SHAKIRA Ot V58.83 ENCOUNTER FOR THERAPEUTIC DRUG MONITORIN 09/05/2017 ROSANGELA MAYORGA DOI Ot V70.0 ROUTINE MEDICAL EXAM 09/05/2017 RJ MATAMOROS, SUHA Phan Ot 327.23 OBSTRUCTIVE SLEEP APNEA (ADULT) (PEDIATR 09/05/2017 SUHA DE LA ROSA MD Ot 401.9 HYPERTENSION NOS 09/05/2017 SUHA DE LA ROSA MD Ot 429.3 CARDIOMEGALY 09/05/2017 SUHA DE LA ROSA MD Ot 786.09 RESPIRATORY ABNORM NEC 09/05/2017 BREONNA MATAMOROS, YASMINE S Ot 493.20 CHRONIC OBSTRUCTIVE ASTHMA, NOS 09/05/2017 SHAKIRA MAYORGA DO Ot V01.1 TUBERCULOSIS CONTACT 09/05/2017 DAFNE FRAIRE SHAKIRA Ot 272.0 PURE HYPERCHOLESTEROLEM 09/05/2017 DAFNE FRAIRE SHAKIRA Ot 401.1 BENIGN HYPERTENSION 09/05/2017 DAFNE FRAIRE SHAKIRA Ot 429.3 CARDIOMEGALY 09/05/2017 SHAKIRA MAYORGA DO Ot 453.40 ACUTE VENOUS EMBOLISM THROMBOSIS UNSP 09/05/2017 SHAKIRA MAYORGA DO Ot 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 09/05/2017 SHAKIRA MAYORGA DO Ot 496 CHR AIRWAY OBSTRUCT NEC 09/05/2017 SHAKIRA MAYORGA DO Ot 729.5 PAIN IN LIMB 09/05/2017 SHAKIRA MAYORGA DO Ot 780.39 OTHER CONVULSIONS 09/05/2017 SHAKIRA MAYORGA DO Ot 782.3 EDEMA 09/05/2017 SHAKIRA MAYORGA DO Ot V15.82 HISTORY OF TOBACCO USE 09/05/2017 SHAKIRA MAYORGA DO Ot V58.69 OT MED,LT,CURRENT USE 09/05/2017 SHAKIRA MAYORGA DO Ot V70.0 ROUTINE MEDICAL EXAM 09/05/2017 SHAKIRA MAYORGA DO Ot E78.0 PURE HYPERCHOLESTEROLEMIA 09/05/2017 ROSANGELA MAYORGA DOI Ot 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 09/05/2017 SHAKIRA MAYORGA DO Ot Z00.00 ENCNTR FOR GENERAL ADULT MEDICAL EXAM W09/05/2017 DAFNE FRAIRE SHAKIRA Ot Z51.81 ENCOUNTER FOR THERAPEUTIC DRUG LEVEL MON 09/05/2017 SHAKIRA MAYORGA DO Ot Z79.899 OTHER ALF (CURRENT) DRUG THERAPY 09/05/2017 KASIA CABA Ot E78.2 MIXED HYPERLIPIDEMIA 09/05/2017 SHAKIRA MAYORGA DO Ot E78.00 PURE HYPERCHOLESTEROLEMIA, UNSPECIFIED 09/05/2017 SHAKIRA MAYORGA DO Ot 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 09/05/2017 SHAKIRA MAYORGA DO Ot Z00.00 ENCNTR FOR GENERAL ADULT MEDICAL EXAM W09/05/2017 SHAKIRA MAYORGA DO Ot Z51.81 ENCOUNTER FOR THERAPEUTIC DRUG LEVEL MON 09/05/2017 SHAKIRA MAYORGA DO Ot Z79.899 OTHER DIRECTOR OF BUSINESS DEVELOPMENT (CURRENT) DRUG THERAPY 09/05/2017 SUHA DE LA ROSA MD Ot G47.33 OBSTRUCTIVE SLEEP APNEA (ADULT) (PEDIATR 09/05/2017 SUHA DE LA ROSA MD Ot I10 ESSENTIAL (PRIMARY) HYPERTENSION 09/05/2017 SUHA DE LA ROSA MD Ot I47.2 VENTRICULAR TACHYCARDIA 09/05/2017 SUHA DE LA ROSA MD Ot R06.02 SHORTNESS OF BREATH 09/05/2017 RJ MATAMOROS, SUHA Phan Ot R07.89 OTHER CHEST PAIN 09/05/2017 DAFNE FRAIRE SHAKIRA Ot 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 09/05/2017 DAFNE FRAIRE SHAKIRA Ot Z51.81 ENCOUNTER FOR THERAPEUTIC DRUG LEVEL [facility] 09/06/2017 DAFNE FRAIRE SHAKIRA Ot E78.00 PURE HYPERCHOLESTEROLEMIA, UNSPECIFIED 09/06/2017 MAYORGAREI FRAIRE SHAKIRA Ot 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 09/06/2017 DAFNE FRAIRE SHAKIRA Ot Z00.00 ENCNTR FOR GENERAL ADULT MEDICAL EXAM W09/10/2017 Benoit Desouza 491.20 OBSTRUCTIVE CHRONIC BRONCHITIS, WITHOUT EXACERBATION 09/10/2017 Benoit Desouza J44.9 CHRONIC OBSTRUCTIVE PULMONARY DISEASE, UNSPECIFIED 10/03/2017 DAFNE DO SHAKIRA Ot E78.00 PURE HYPERCHOLESTEROLEMIA, UNSPECIFIED 10/03/2017 DAFNE FRAIRE SHAKIRA Ot 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 10/03/2017 DAFNE FRAIRE SHAKIRA Ot Z00.00 ENCNTR FOR GENERAL ADULT MEDICAL EXAM W10/24/2017 DAFNE FRAIRE SHAKIRA Ot E78.00 PURE HYPERCHOLESTEROLEMIA, UNSPECIFIED 10/24/2017 DAFEN FRAIRE SHAKIRA Ot 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 10/24/2017 DAFNE FRAIRE SHAKIRA Ot Z00.00 ENCNTR FOR GENERAL ADULT MEDICAL EXAM W10/24/2017 Ot 496 CHR AIRWAY OBSTRUCT NEC 10/24/2017 RJ MATAMOROS, SUHA Phan Ot 272.4 HYPERLIPIDEMIA NEC/NOS 10/24/2017 YASMINE RAVI MD S Ot 453.40 ACUTE VENOUS EMBOLISM THROMBOSIS UNSP 10/24/2017 DAFNE FRIARE SHAKIRA Ot 272.0 PURE HYPERCHOLESTEROLEM 10/24/2017 DAFNE FRAIRE SHAKIRA Ot 345.90 EPILEPSY UNSPEC W/O MENTION INTRACTABLE 10/24/2017 DAFNE FRAIRE SHAKIRA Ot 401.1 BENIGN HYPERTENSION 10/24/2017 DAFNE FRAIRE SHAKIRA Ot 496 CHR AIRWAY OBSTRUCT NEC 10/24/2017 DAFNE FRAIRE SHAKIRA Ot V58.61 ANTICOAGULANTS,LT,CURRENT USE 10/24/2017 YASMINE RAVI MD S Ot 453.40 ACUTE VENOUS EMBOLISM THROMBOSIS UNSP 10/24/2017 YASMINE RAVI MD S Ot 453.40 ACUTE VENOUS EMBOLISM THROMBOSIS UNSP 10/24/2017 RJ MATAMOROS, SUHA Phan Ot 327.23 OBSTRUCTIVE SLEEP APNEA (ADULT) (PEDIATR 10/24/2017 RJ MATAMOROS, SUHA Phan Ot 401.9 HYPERTENSION NOS 10/24/2017 RJ MATAMOROS, SUHA Phan Ot 496 CHR AIRWAY OBSTRUCT NEC 10/24/2017 SUHA DE LA ROSA MD Ot 786.09 RESPIRATORY ABNORM NEC 10/24/2017 YASMINE RAVI MD Ot 453.40 ACUTE VENOUS EMBOLISM THROMBOSIS UNSP 10/24/2017 ROSANGELA MAYORGA DOI Ot 272.0 PURE HYPERCHOLESTEROLEM 10/24/2017 ROSANGELA MAYORGA DOI Ot 345.90 EPILEPSY UNSPEC W/O MENTION INTRACTABLE 10/24/2017 SHAKIRA MAYORGA DO Ot 401.1 BENIGN HYPERTENSION 10/24/2017 SHAKIRA MAYORGA DO Ot 429.3 CARDIOMEGALY 10/24/2017 SHAKIRA MAYORGA DO Ot 453.40 ACUTE VENOUS EMBOLISM THROMBOSIS UNSP 10/24/2017 SHAKIRA MAYORGA DO Ot 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 10/24/2017 ROSANGELA MAYORGA DOI Ot 496 CHR AIRWAY OBSTRUCT NEC 10/24/2017 SHAKIRA AMYORGA DO Ot 706.2 SEBACEOUS CYST 10/24/2017 SHAKIRA MAYORGA DO Ot 729.5 PAIN IN LIMB 10/24/2017 SHAKIRA MAYORGA DO Ot 782.3 EDEMA 10/24/2017 SHAKIRA MAYORGA DO Ot V58.61 ANTICOAGULANTS,LT,CURRENT USE 10/24/2017 SHAKIRA MAYORGA DO Ot V58.83 ENCOUNTER FOR THERAPEUTIC DRUG MONITORIN 10/24/2017 SHAKIRA MAYORGA DO Ot V70.0 ROUTINE MEDICAL EXAM 10/24/2017 YASMINE RAVI MD Ot 453.40 ACUTE VENOUS EMBOLISM THROMBOSIS UNSP 10/24/2017 Ot 327.23 OBSTRUCTIVE SLEEP APNEA (ADULT) (PEDIATR 10/24/2017 Ot 401.9 HYPERTENSION NOS 10/24/2017 Ot 496 CHR AIRWAY OBSTRUCT NEC 10/24/2017 YASMINE RAVI MD Ot 453.40 ACUTE VENOUS EMBOLISM THROMBOSIS UNSP 10/24/2017 YASMINE RAVI MD Ot 453.40 ACUTE VENOUS EMBOLISM THROMBOSIS UNSP 10/24/2017 SHAKIRA MAYORGA DO Ot 272.0 PURE HYPERCHOLESTEROLEM 10/24/2017 MAYORGA DO, SHAKIRA Ot 401.1 BENIGN HYPERTENSION 10/24/2017 DAFNE FRAIRE SHAKIRA Ot 496 CHR AIRWAY OBSTRUCT NEC 10/24/2017 DAFNE FRAIRE SHAKIRA Ot V58.69 OT MED,LT,CURRENT USE 10/24/2017 DAFNE FRAIRE SHAKIRA Ot V58.83 ENCOUNTER FOR THERAPEUTIC DRUG MONITORIN 10/24/2017 ROSANGELA MAYORGA DOI Ot V70.0 ROUTINE MEDICAL EXAM 10/24/2017 RJ MATAMOROS, SUHA Phan Ot 327.23 OBSTRUCTIVE SLEEP APNEA (ADULT) (PEDIATR 10/24/2017 RJ MATAMOROS, SUHA Phan Ot 401.9 HYPERTENSION NOS 10/24/2017 RJ MATAMOROS, SUHA Phan Ot 429.3 CARDIOMEGALY 10/24/2017 RJ MATAMOROS, SUHA Phan Ot 786.09 RESPIRATORY ABNORM NEC 10/24/2017 BREONNA MATAMOROS, YASMINE S Ot 493.20 CHRONIC OBSTRUCTIVE ASTHMA, NOS 10/24/2017 DAFNE FRAIRE SHAKIRA Ot V01.1 TUBERCULOSIS CONTACT 10/24/2017 DAFNE FRAIRE SHAKIRA Ot 272.0 PURE HYPERCHOLESTEROLEM 10/24/2017 DAFNE FRAIRE SHAKIRA Ot 401.1 BENIGN HYPERTENSION 10/24/2017 DAFNE FRAIRE SHAKIRA Ot 429.3 CARDIOMEGALY 10/24/2017 DAFNE FRAIRE SHAKIRA Ot 453.40 ACUTE VENOUS EMBOLISM THROMBOSIS UNSP 10/24/2017 DAFNE FRAIRE SHAKIRA Ot 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 10/24/2017 DAFNE FRAIRE SHAKIRA Ot 496 CHR AIRWAY OBSTRUCT NEC 10/24/2017 DAFNE FRAIRE SHAKIRA Ot 729.5 PAIN IN LIMB 10/24/2017 DAFNE FRAIRE SHAKIRA Ot 780.39 OTHER CONVULSIONS 10/24/2017 DAFNE FRAIRE SHAKIRA Ot 782.3 EDEMA 10/24/2017 DAFNE FRAIRE SHAKIRA Ot V15.82 HISTORY OF TOBACCO USE 10/24/2017 DAFNE FRAIRE SHAKIRA Ot V58.69 OT MED,LT,CURRENT USE 10/24/2017 DAFNE FRAIRE SHAKIRA Ot V70.0 ROUTINE MEDICAL EXAM 10/24/2017 DAFNE FRAIRE SHAKIRA Ot E78.0 PURE HYPERCHOLESTEROLEMIA 10/24/2017 DAFNE FRAIRE SHAKIRA Ot 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 10/24/2017 MAYORGA DO, SHAKIRA Ot Z00.00 ENCNTR FOR GENERAL ADULT MEDICAL EXAM W10/24/2017 MAYORGA DO SHAKIRA Ot Z51.81 ENCOUNTER FOR THERAPEUTIC DRUG LEVEL MON 10/24/2017 DAFNE FRAIRE SHAKIRA Ot Z79.899 OTHER DIRECTOR OF BUSINESS DEVELOPMENT (CURRENT) DRUG THERAPY 10/24/2017 KASIA CABA Ot E78.2 MIXED HYPERLIPIDEMIA 10/24/2017 DAFNE FRAIRE SHAKIRA Ot E78.00 PURE HYPERCHOLESTEROLEMIA, UNSPECIFIED 10/24/2017 MAYORGA DO SHAKIRA Ot 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 10/24/2017 MAYORGA DO SHAKIRA Ot Z00.00 ENCNTR FOR GENERAL ADULT MEDICAL EXAM W10/24/2017 MAYORGAREI FRAIRE SHAKIRA Ot Z51.81 ENCOUNTER FOR THERAPEUTIC DRUG LEVEL MON 10/24/2017 DAFNE FRAIRE SHAKIRA Ot Z79.899 OTHER ALF (CURRENT) DRUG THERAPY 10/24/2017 RJ MATAMOROS, SUHA Phan Ot G47.33 OBSTRUCTIVE SLEEP APNEA (ADULT) (PEDIATR 10/24/2017 RJ MATAMOROS, SUHA Phan Ot I10 ESSENTIAL (PRIMARY) HYPERTENSION 10/24/2017 RJ MATAMOROS, SUHA Phan Ot I47.2 VENTRICULAR TACHYCARDIA 10/24/2017 SUHA DE LA ROSA MD Ot R06.02 SHORTNESS OF BREATH 10/24/2017 RJ MATAMOROS, SUHA Phan Ot R07.89 OTHER CHEST PAIN 10/24/2017 SHAKIRA MAYORGA DO Ot 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 10/24/2017 SHAKIRA MAYORGA DO Ot Z51.81 ENCOUNTER FOR THERAPEUTIC DRUG LEVEL MON 10/24/2017 DAFNE FRAIRE SHAKIRA Ot E78.00 PURE HYPERCHOLESTEROLEMIA, UNSPECIFIED 10/24/2017 DAFNE FRAIRE SHAKIRA Ot 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 10/24/2017 DAFNE RFAIRE SHAKIRA Ot Z00.00 ENCNTR FOR GENERAL ADULT MEDICAL EXAM W10/24/2017 Ot 496 CHR AIRWAY OBSTRUCT NEC 10/24/2017 RJ MATAMOROS, SUHA Phan Ot 272.4 HYPERLIPIDEMIA NEC/NOS 10/24/2017 BREONNA MATAMOROS, YASMINE S Ot 453.40 ACUTE VENOUS EMBOLISM THROMBOSIS UNSP 10/24/2017 SHAKIRA MAYORGA DO Ot 272.0 PURE HYPERCHOLESTEROLEM 10/24/2017 DAFNE FRAIRE SHAKIRA Ot 345.90 EPILEPSY UNSPEC W/O MENTION INTRACTABLE 10/24/2017 DAFNE FRAIRE HSAKIRA Ot 401.1 BENIGN HYPERTENSION 10/24/2017 DAFNE FRAIRE SHAKIRA Ot 496 CHR AIRWAY OBSTRUCT NEC 10/24/2017 ROSANGELA MAYORGA DOI Ot V58.61 ANTICOAGULANTS,LT,CURRENT USE 10/24/2017 BREONNA MATAMOROS, YASMINE S Ot 453.40 ACUTE VENOUS EMBOLISM THROMBOSIS UNS 10/24/2017 YASMINE RAVI MD S Ot 453.40 ACUTE VENOUS EMBOLISM THROMBOSIS UNS 10/24/2017 RJ MATAMOROS, SUHA Phan Ot 327.23 OBSTRUCTIVE SLEEP APNEA (ADULT) (PEDIATR 10/24/2017 RJ MATAMOROS, SUHA Phan Ot 401.9 HYPERTENSION NOS 10/24/2017 RJ MATAMOROS, SUHA Phan Ot 496 CHR AIRWAY OBSTRUCT NEC 10/24/2017 RJ MATAMOROS, SUHA Phan Ot 786.09 RESPIRATORY ABNORM NEC 10/24/2017 BREONNA MATAMOROS, YASMINE S Ot 453.40 ACUTE VENOUS EMBOLISM THROMBOSIS UNS 10/24/2017 ROSANGELA MAYORGA DOI Ot 272.0 PURE HYPERCHOLESTEROLEM 10/24/2017 DAFNE FRAIRE SHAKIRA Ot 345.90 EPILEPSY UNSPEC W/O MENTION INTRACTABLE 10/24/2017 DAFNE FRAIRE SHAKIRA Ot 401.1 BENIGN HYPERTENSION 10/24/2017 DAFNE FRAIRE SHAKIRA Ot 429.3 CARDIOMEGALY 10/24/2017 ROSANGELA MAYORGA DOI Ot 453.40 ACUTE VENOUS EMBOLISM THROMBOSIS [facility] 10/24/2017 DAFNE FRAIRE SHAKIRA Ot 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 10/24/2017 ROSANGELA MAYORGA DOI Ot 496 CHR AIRWAY OBSTRUCT NEC 10/24/2017 ROSANGELA AMYORGA DOI Ot 706.2 SEBACEOUS CYST 10/24/2017 DAFNE FRAIRE SHAKIRA Ot 729.5 PAIN IN LIMB 10/24/2017 DAFNE FRAIRE SHAKIRA Ot 782.3 EDEMA 10/24/2017 ROSANGELA MAYORGA DOI Ot V58.61 ANTICOAGULANTS,LT,CURRENT USE 10/24/2017 ROSANGELA MAYORGA DOI Ot V58.83 ENCOUNTER FOR THERAPEUTIC DRUG MONITORIN 10/24/2017 SHAKIRA MAYORGA DO Ot V70.0 ROUTINE MEDICAL EXAM 10/24/2017 BREONNA MATAMOROS, YASMINE S Ot 453.40 ACUTE VENOUS EMBOLISM THROMBOSIS UNS 10/24/2017 Ot 327.23 OBSTRUCTIVE SLEEP APNEA (ADULT) (PEDIATR 10/24/2017 Ot 401.9 HYPERTENSION NOS 10/24/2017 Ot 496 CHR AIRWAY OBSTRUCT NEC 10/24/2017 BREONNA MATAMOROS, YASMINE S Ot 453.40 ACUTE VENOUS EMBOLISM THROMBOSIS UNSP 10/24/2017 BREONNA MATAMOROS, YASMINE S Ot 453.40 ACUTE VENOUS EMBOLISM THROMBOSIS UNSP 10/24/2017 DAFNE FRAIRE SHAKIRA Ot 272.0 PURE HYPERCHOLESTEROLEM 10/24/2017 DAFNE FRAIRE SHAKIRA Ot 401.1 BENIGN HYPERTENSION 10/24/2017 DAFNE FRAIRE SHAKIRA Ot 496 CHR AIRWAY OBSTRUCT NEC 10/24/2017 DAFNE FRAIRE SHAKIRA Ot V58.69 OT MED,LT,CURRENT USE 10/24/2017 ROSANGELA MAYORGA DOI Ot V58.83 ENCOUNTER FOR THERAPEUTIC DRUG MONITORIN 10/24/2017 SHAKIRA MAYORGA DO Ot V70.0 ROUTINE MEDICAL EXAM 10/24/2017 RJ MATAMOROS, SUHA Phan Ot 327.23 OBSTRUCTIVE SLEEP APNEA (ADULT) (PEDIATR 10/24/2017 RJ MATAMOROS, SUHA Phan Ot 401.9 HYPERTENSION NOS 10/24/2017 RJ MATAMOROS, SUHA Phan Ot 429.3 CARDIOMEGALY 10/24/2017 RJ MATAMOROS, SUHA Phan Ot 786.09 RESPIRATORY ABNORM NEC 10/24/2017 BREONNA MATAMOROS, YASMINE S Ot 493.20 CHRONIC OBSTRUCTIVE ASTHMA, NOS 10/24/2017 ROSANGELA MAYORGA DOI Ot V01.1 TUBERCULOSIS CONTACT 10/24/2017 DAFNE FRAIRE SHAKIRA Ot 272.0 PURE HYPERCHOLESTEROLEM 10/24/2017 DAFNE FRAIRE SHAKIRA Ot 401.1 BENIGN HYPERTENSION 10/24/2017 DAFNE FRAIRE SHAKIRA Ot 429.3 CARDIOMEGALY 10/24/2017 DAFNE FRAIRE SHAKIRA Ot 453.40 ACUTE VENOUS EMBOLISM THROMBOSIS UNSP 10/24/2017 DAFNE FRAIRE SHAKIRA Ot 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 10/24/2017 DAFNE FRAIRE SHAKIRA Ot 496 CHR AIRWAY OBSTRUCT NEC 10/24/2017 DAFNE FRAIRE SHAKIRA Ot 729.5 PAIN IN LIMB 10/24/2017 DAFNE FRAIRE SHAKIRA Ot 780.39 OTHER CONVULSIONS 10/24/2017 DAFNE FRAIRE SHAKIRA Ot 782.3 EDEMA 10/24/2017 DAFNE FRAIRE SHAKIRA Ot V15.82 HISTORY OF TOBACCO USE 10/24/2017 DAFNE FRAIRE SHAKIRA Ot V58.69 OT MED,LT,CURRENT USE 10/24/2017 DAFNE DO SHAKIRA Ot V70.0 ROUTINE MEDICAL EXAM 10/24/2017 DAFNE FRAIRE SHAKIRA Ot E78.0 PURE HYPERCHOLESTEROLEMIA 10/24/2017 MAYORGA DO SHAKIRA Ot 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 10/24/2017 MAYORGA DO SHAKIRA Ot Z00.00 ENCNTR FOR GENERAL ADULT MEDICAL EXAM 10/24/2017 MAYORGA DO SHAKIRA Ot Z51.81 ENCOUNTER FOR THERAPEUTIC DRUG LEVEL MON 10/24/2017 MAYORGA DO SHAKIRA Ot Z79.899 OTHER ALF (CURRENT) DRUG THERAPY 10/24/2017 KASIA CABA Ot E78.2 MIXED HYPERLIPIDEMIA 10/24/2017 DAFNE DO SHAKIRA Ot E78.00 PURE HYPERCHOLESTEROLEMIA, UNSPECIFIED 10/24/2017 DAFNE DO SHAKIRA Ot 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 10/24/2017 DAFNE FRAIRE SHAKIRA Ot Z00.00 ENCNTR FOR GENERAL ADULT MEDICAL EXAM W10/24/2017 DAFNE FRAIRE SHAKIRA Ot Z51.81 ENCOUNTER FOR THERAPEUTIC DRUG LEVEL MON 10/24/2017 ROSANGELA MAYORGA DOI Ot Z79.899 OTHER ALF (CURRENT) DRUG THERAPY 10/24/2017 RJ MATAMOROS, SUHA Phan Ot G47.33 OBSTRUCTIVE SLEEP APNEA (ADULT) (PEDIATR 10/24/2017 RJ MATAMOROS, SUHA Phan Ot I10 ESSENTIAL (PRIMARY) HYPERTENSION 10/24/2017 SUHA DE LA ROSA MD Ot I47.2 VENTRICULAR TACHYCARDIA 10/24/2017 SUHA DE LA ROSA MD Ot R06.02 SHORTNESS OF BREATH 10/24/2017 SUHA DE LA ROSA MD Ot R07.89 OTHER CHEST PAIN 10/24/2017 DAFNE FRAIRE SHAKIRA Ot 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 10/24/2017 DAFNE FRAIRE SHAKIRA Ot Z51.81 ENCOUNTER FOR THERAPEUTIC DRUG LEVEL MON 10/24/2017 DAFNE DO SHAKIRA Ot E78.00 PURE HYPERCHOLESTEROLEMIA, UNSPECIFIED 10/24/2017 MAYORGA DO SHAKIRA Ot 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 10/24/2017 DAFNE FRAIRE SHAKIRA Ot Z00.00 ENCNTR FOR GENERAL ADULT MEDICAL EXAM W/ Procedures Code [place] [address] PSYCH DIAGNOSTIC EVALUATION 11/06/2013 86624 PSYTX PT&/FAMILY 45 MINUTES 12/08/2013 78207 PSYTX PT&/FAMILY 45 MINUTES 12/25/2013 13769 PSYTX PT&/FAMILY 45 MINUTES 01/19/2014 45217 PSYTX PT&/FAMILY 45 MINUTES 01/28/2014 96329 PSYTX PT&/FAMILY 45 MINUTES 02/18/2014 08696 PSYTX PT&/FAMILY 45 MINUTES 03/18/2014 40504 PSYTX PT&/FAMILY 45 MINUTES 04/08/2014 69858 PSYTX PT&/FAMILY 45 MINUTES 04/29/2014 16060 PSYTX PT&/FAMILY 45 MINUTES 05/20/2014 10952 PSYTX PT&/FAMILY 45 MINUTES 06/09/2014 60183 PSYTX PT&/FAMILY 45 MINUTES 07/12/2014 02771 PSYTX PT&/FAMILY 45 MINUTES 08/04/2014 80843 PSYTX PT&/FAMILY 45 MINUTES 08/26/2014 09440 PSYTX PT&/FAMILY 45 MINUTES 10/13/2014 Results Test Result Range Comprehensive metabolic panel - 03/01/16 07:56 Serum or plasma sodium measurement (moles/volume) 140 mmol/L 135-145 Serum or plasma potassium measurement (moles/volume) 4.5 mmol/L 3.6-5.0 Serum or plasma chloride measurement (moles/volume) 107 mmol/L 98-107 Carbon dioxide 25 mmol/L 21-32 Serum or plasma anion gap determination (moles/volume) 8 mmol/L 5-14 Serum or plasma urea nitrogen measurement (mass/volume) 17 mg/dL 7-18 Serum or plasma creatinine measurement (mass/volume) 1.00 mg/dL 0.60-1.30 Serum or plasma urea nitrogen/creatinine mass [...] Serum or plasma triglyceride measurement (mass/volume) 61 mg/dL <150 Serum or plasma cholesterol measurement (mass/volume) 177 mg/dL < 200 Serum or plasma cholesterol in HDL measurement (mass/volume) 52 mg/ dL 40-60 Cholesterol in LDL [mass/volume] in serum or plasma by direct assay 111 mg/dL 1-129 Serum or plasma cholesterol in VLDL measurement (mass/volume) 12 mg/ dL 5-40 THYROID STIMULATING HORMONE - 03/01/16 07:56 THYROID STIMULATING HORMONE 1.18 u[iU]/mL 0.35-4.94 Serum or plasma phenytoin measurement (mass/volume) - 03/01/16 07:56 Serum or plasma phenytoin measurement (mass/volume) 7.7 ug/mL 10.0-20.0 Complete blood count (CBC) with automated white blood cell (WBC) differential - 08/23/16 07:58 Blood leukocytes automated count (number/volume) 8.0 10*3/uL 4.3-11.0 Blood erythrocytes automated count (number/volume) 4.82 10*6/uL 4.35-5.85 Venous blood hemoglobin measurement (mass/volume) 15.1 [...] Automated blood platelet mean volume measurement 10.1 [foz_us] 7.4-10.4 Automated blood neutrophils/100 leukocytes 68 % [...] Serum or plasma sodium measurement (moles/volume) 140 mmol/L 135-145 Serum or plasma potassium measurement (moles/volume) 4.7 mmol/L 3.6-5.0 Serum or plasma chloride measurement (moles/volume) 105 mmol/L 98-107 Carbon dioxide 26 mmol/L 21-32 Serum or plasma anion gap determination (moles/volume) 9 mmol/L 5-14 Serum or plasma urea nitrogen measurement (mass/volume) 20 mg/dL 7-18 Serum or plasma creatinine measurement (mass/volume) 0.98 mg/dL 0.60-1.30 Serum or plasma urea nitrogen/creatinine mass [...] Serum or plasma triglyceride measurement (mass/volume) 86 mg/dL <150 Serum or plasma cholesterol measurement (mass/volume) 165 mg/dL < 200 Serum or plasma cholesterol in HDL measurement (mass/volume) 52 mg/ dL 40-60 Cholesterol in LDL [mass/volume] in serum or plasma by direct assay 98 mg/dL 1-129 Serum or plasma cholesterol in VLDL measurement (mass/volume) 17 mg/ dL 5-40 THYROID STIMULATING HORMONE - 08/23/16 07:58 THYROID STIMULATING HORMONE 1.13 u[iU]/mL 0.35-4.94 Serum or plasma phenytoin measurement (mass/volume) - 08/23/16 07:58 Serum or plasma phenytoin measurement (mass/volume) 10.0 ug/mL 10.0-20.0 Complete blood count (CBC) with automated white blood cell (WBC) differential - 01/16/17 14:18 Blood leukocytes automated count (number/volume) 12.5 10*3/uL 4.3-11.0 Blood erythrocytes automated count (number/volume) 5.00 10*6/uL 4.35-5.85 Venous blood hemoglobin measurement (mass/volume) 15.0 g/dL 13.3-17.7 Blood hematocrit (volume fraction) 46 % 40-54 Automated erythrocyte mean corpuscular volume 91 [foz_us] 80-99 Automated erythrocyte mean corpuscular hemoglobin (mass per erythrocyte) 30 pg 25-34 Automated erythrocyte mean corpuscular hemoglobin concentration measurement ( mass/volume) 33 g/dL 32-36 Automated erythrocyte distribution width ratio 13.2 % 10.0-14.5 Automated blood platelet count (count/volume) 290 10*3/uL 130-400 Automated blood platelet mean volume measurement 9.9 [foz_us] 7.4-10.4 Automated blood neutrophils/100 leukocytes 77 % 42-75 Automated blood lymphocytes/100 leukocytes 10 % 12-44 Blood monocytes/100 leukocytes 12 % 0-12 Automated blood eosinophils/100 leukocytes 0 % 0-10 Automated blood basophils/100 leukocytes 0 % 0-10 Blood neutrophils automated count (number/volume) 9.6 10*3 1.8-7.8 Blood lymphocytes automated count (number/volume) 1.3 10*3 1.0-4.0 Blood monocytes automated count (number/volume) 1.5 10*3 0.0-1.0 Automated eosinophil count 0.0 10*3/uL 0.0-0.3 Automated blood basophil count (count/volume) 0.0 10*3/uL 0.0-0.1 PT panel in platelet poor plasma by coagulation assay - 01/16/17 14:18 Prothrombin time (PT) in platelet poor plasma by coagulation assay 14.0 s 12.2-14.7 INR in platelet poor plasma or blood by coagulation assay 1.1 0.8-1.4 Activated partial thromboplastin time (aPTT) in platelet poor plasma bycoagulation assay - 01/16/17 14:18 Activated partial thromboplastin time (aPTT) in platelet poor plasma bycoagulation assay 34 s 24-35 Blood lactic acid measurement (moles/volume) - 01/16/17 14:18 Blood lactic acid measurement (moles/volume) 1.41 mmol/L 0.50-2.00 Comprehensive metabolic panel - 01/16/17 14:18 Serum or plasma sodium measurement (moles/volume) 141 mmol/L 135-145 Serum or plasma potassium measurement (moles/volume) 3.7 mmol/L 3.6-5.0 Serum or plasma chloride measurement (moles/volume) 107 mmol/L 98-107 Carbon dioxide 22 mmol/L 21-32 Serum or plasma anion gap determination (moles/volume) 12 mmol/L 5-14 Serum or plasma urea nitrogen measurement (mass/volume) 14 mg/dL 7-18 Serum or plasma creatinine measurement (mass/volume) 0.94 mg/dL 0.60-1.30 Serum or plasma urea nitrogen/creatinine mass ratio 15 NRG Serum or plasma creatinine measurement with calculation of estimated glomerular filtration rate > NRG Serum or plasma glucose measurement (mass/volume) 102 mg/dL 70-105 Serum or plasma calcium measurement (mass/volume) 9.1 mg/dL 8.5-10.1 Serum or plasma total bilirubin measurement (mass/volume) 0.6 mg/dL 0.1-1.0 Serum or plasma alkaline phosphatase measurement (enzymatic activity/volume) 105 U/L 40-136 Serum or plasma aspartate aminotransferase measurement (enzymatic activity/ volume) 30 U/L 5-34 Serum or plasma alanine aminotransferase measurement (enzymatic activity/volume ) 35 U/L 0-55 Serum or plasma protein measurement (mass/volume) 7.6 g/dL 6.4-8.2 Serum or plasma albumin measurement (mass/volume) 3.8 g/dL 3.2-4.5 Bacterial blood culture - 01/16/17 14:18 Bacterial blood culture NG NRG Bacterial blood culture - 01/16/17 15:19 Bacterial blood culture NG NRG Complete urinalysis with reflex to culture - 01/16/17 16:22 Urine color determination YELLOW NRG Urine clarity determination SLIGHTLY CLOUDY NRG Urine pH measurement by test strip 5 5-9 Specific gravity of urine by test strip 1.015 1.016- 1.022 Urine protein assay by test strip, semi-quantitative 2+ NEGATIVE Urine glucose detection by automated test strip NEGATIVE NEGATIVE Erythrocytes detection in urine sediment by light microscopy NEGATIVE NEGATIVE Urine ketones detection by automated test strip 1+ NEGATIVE Urine nitrite detection by test strip NEGATIVE NEGATIVE Urine total bilirubin detection by test strip NEGATIVE NEGATIVE Urine urobilinogen measurement by automated test strip (mass/volume) NORMAL NORMAL Urine leukocyte esterase detection by dipstick 1+ NEGATIVE Automated urine sediment erythrocyte count by microscopy (number/high power field) NONE NRG Automated urine sediment leukocyte count by microscopy (number/high power field ) [HPF] NRG Bacteria detection in urine sediment by light microscopy FEW NRG Crystals detection in urine sediment by light microscopy NONE NRG Casts detection in urine sediment by light microscopy NONE NRG Mucus detection in urine sediment by light microscopy NEGATIVE NRG Complete urinalysis with reflex to culture NO NRG Complete blood count (CBC) with automated white blood cell (WBC) differential - 01/17/17 05:57 Blood leukocytes automated count (number/volume) 11.1 10*3/uL 4.3-11.0 Blood erythrocytes automated count (number/volume) 4.55 10*6/uL 4.35-5.85 Venous blood hemoglobin measurement (mass/volume) 13.8 g/dL 13.3-17.7 Blood hematocrit (volume fraction) 42 % 40-54 Automated erythrocyte mean corpuscular volume 93 [foz_us] 80-99 Automated erythrocyte mean corpuscular hemoglobin (mass per erythrocyte) 30 pg 25-34 Automated erythrocyte mean corpuscular hemoglobin concentration measurement ( mass/volume) 33 g/dL 32-36 Automated erythrocyte distribution width ratio 13.2 % 10.0-14.5 Automated blood platelet count (count/volume) 274 10*3/uL 130-400 Automated blood platelet mean volume measurement 10.1 [foz_us] 7.4-10.4 Automated blood neutrophils/100 leukocytes 68 % 42-75 Automated blood lymphocytes/100 leukocytes 16 % 12-44 Blood monocytes/100 leukocytes 16 % 0-12 Automated blood eosinophils/100 leukocytes 0 % 0-10 Automated blood basophils/100 leukocytes 0 % 0-10 Blood neutrophils automated count (number/volume) 7.6 10*3 1.8-7.8 Blood lymphocytes automated count (number/volume) 1.7 10*3 1.0-4.0 Blood monocytes automated count (number/volume) 1.8 10*3 0.0-1.0 Automated eosinophil count 0.0 10*3/uL 0.0-0.3 Automated blood basophil count (count/volume) 0.0 10*3/uL 0.0-0.1 Complete blood count (CBC) with automated white blood cell (WBC) differential - 01/18/17 05:55 Blood leukocytes automated count (number/volume) 11.8 10*3/uL 4.3-11.0 Blood erythrocytes automated count (number/volume) 4.91 10*6/uL 4.35-5.85 Venous blood hemoglobin measurement (mass/volume) 14.8 g/dL 13.3-17.7 Blood hematocrit (volume fraction) 45 % 40-54 Automated erythrocyte mean corpuscular volume 92 [foz_us] 80-99 Automated erythrocyte mean corpuscular hemoglobin (mass per erythrocyte) 30 pg 25-34 Automated erythrocyte mean corpuscular hemoglobin concentration measurement ( mass/volume) 33 g/dL 32-36 Automated erythrocyte distribution width ratio 13.3 % 10.0-14.5 Automated blood platelet count (count/volume) 303 10*3/uL 130-400 Automated blood platelet mean volume measurement 10.1 [foz_us] 7.4-10.4 Automated blood neutrophils/100 leukocytes 69 % 42-75 Automated blood lymphocytes/100 leukocytes 14 % 12-44 Blood monocytes/100 leukocytes 13 % 0-12 Automated blood eosinophils/100 leukocytes 3 % 0-10 Automated blood basophils/100 leukocytes 0 % 0-10 Blood neutrophils automated count (number/volume) 8.2 10*3 1.8-7.8 Blood lymphocytes automated count (number/volume) 1.7 10*3 1.0-4.0 Blood monocytes automated count (number/volume) 1.6 10*3 0.0-1.0 Automated eosinophil count 0.3 10*3/uL 0.0-0.3 Automated blood basophil count (count/volume) 0.0 10*3/uL 0.0-0.1 Comprehensive metabolic panel - 01/18/17 05:55 Serum or plasma sodium measurement (moles/volume) 141 mmol/L 135-145 Serum or plasma potassium measurement (moles/volume) 4.7 mmol/L 3.6-5.0 Serum or plasma chloride measurement (moles/volume) 106 mmol/L 98-107 Carbon dioxide 24 mmol/L 21-32 Serum or plasma anion gap determination (moles/volume) 11 mmol/L 5-14 Serum or plasma urea nitrogen measurement (mass/volume) 17 mg/dL 7-18 Serum or plasma creatinine measurement (mass/volume) 0.90 mg/dL 0.60-1.30 Serum or plasma urea nitrogen/creatinine mass ratio 19 NRG Serum or plasma creatinine measurement with calculation of estimated glomerular filtration rate > NRG Serum or plasma glucose measurement (mass/volume) 92 mg/dL 70-105 Serum or plasma calcium measurement (mass/volume) 9.3 mg/dL 8.5-10.1 Serum or plasma total bilirubin measurement (mass/volume) 0.4 mg/dL 0.1-1.0 Serum or plasma alkaline phosphatase measurement (enzymatic activity/volume) 81 U/L 40-136 Serum or plasma aspartate aminotransferase measurement (enzymatic activity/ volume) 39 U/L 5-34 Serum or plasma alanine aminotransferase measurement (enzymatic activity/volume ) 36 U/L 0-55 Serum or plasma protein measurement (mass/volume) 7.3 g/dL 6.4-8.2 Serum or plasma albumin measurement (mass/volume) 3.3 g/dL 3.2-4.5 Comprehensive metabolic panel - 02/27/17 06:53 Serum or plasma sodium measurement (moles/volume) 143 mmol/L 135-145 Serum or plasma potassium measurement (moles/volume) 4.2 mmol/L 3.6-5.0 Serum or plasma chloride measurement (moles/volume) 111 mmol/L 98-107 Carbon dioxide 22 mmol/L 21-32 Serum or plasma anion gap determination (moles/volume) 10 mmol/L 5-14 Serum or plasma urea nitrogen measurement (mass/volume) 22 mg/dL 7-18 Serum or plasma creatinine measurement (mass/volume) 0.85 mg/dL 0.60-1.30 Serum or plasma urea nitrogen/creatinine mass ratio 26 NRG Serum or plasma creatinine measurement with calculation of estimated glomerular filtration rate > NRG Serum or plasma glucose measurement (mass/volume) 100 mg/dL 70-105 Serum or plasma calcium measurement (mass/volume) 9.8 mg/dL 8.5-10.1 Serum or plasma total bilirubin measurement (mass/volume) 0.3 mg/dL 0.1-1.0 Serum or plasma alkaline phosphatase measurement (enzymatic activity/volume) 97 U/L 40-136 Serum or plasma aspartate aminotransferase measurement (enzymatic activity/ volume) 25 U/L 5-34 Serum or plasma alanine aminotransferase measurement (enzymatic activity/volume ) 40 U/L 0-55 Serum or plasma protein measurement (mass/volume) 7.3 g/dL 6.4-8.2 Serum or plasma albumin measurement (mass/volume) 3.9 g/dL 3.2-4.5 Serum or plasma triglyceride measurement (mass/volume) - 02/27/17 06:53 Serum or plasma triglyceride measurement (mass/volume) 65 mg/dL <150 Serum or plasma cholesterol measurement (mass/volume) - 02/27/17 06:53 Serum or plasma cholesterol measurement (mass/volume) 186 mg/dL < 200 THYROID STIMULATING HORMONE - 02/27/17 06:53 THYROID STIMULATING HORMONE 0.58 u[iU]/mL 0.35-4.94 Serum or plasma testosterone measurement (mass/volume) - 02/27/17 06:53 Testosterone [mass or moles/volume] in serum or plasma 294 % 241-827 Complete blood count (CBC) with automated white blood cell (WBC) differential - 09/05/17 10:20 Blood leukocytes automated count (number/volume) 9.3 10*3/uL 4.3-11.0 Blood erythrocytes automated count (number/volume) 4.88 10*6/uL 4.35-5.85 Venous blood hemoglobin measurement (mass/volume) 15.7 g/dL 13.3-17.7 Blood hematocrit (volume fraction) 45 % 40-54 Automated erythrocyte mean corpuscular volume 92 [foz_us] 80-99 Automated erythrocyte mean corpuscular hemoglobin (mass per erythrocyte) 32 pg 25-34 Automated erythrocyte mean corpuscular hemoglobin concentration measurement ( mass/volume) 35 g/dL 32-36 Automated erythrocyte distribution width ratio 12.9 % 10.0-14.5 Automated blood platelet count (count/volume) 259 10*3/uL 130-400 Automated blood platelet mean volume measurement 9.9 [foz_us] 7.4-10.4 Automated blood neutrophils/100 leukocytes 62 % 42-75 Automated blood lymphocytes/100 leukocytes 21 % 12-44 Blood monocytes/100 leukocytes 11 % 0-12 Automated blood eosinophils/100 leukocytes 5 % 0-10 Automated blood basophils/100 leukocytes 1 % 0-10 Blood neutrophils automated count (number/volume) 5.7 10*3 1.8-7.8 Blood lymphocytes automated count (number/volume) 1.9 10*3 1.0-4.0 Blood monocytes automated count (number/volume) 1.1 10*3 0.0-1.0 Automated eosinophil count 0.5 10*3/uL 0.0-0.3 Automated blood basophil count (count/volume) 0.1 10*3/uL 0.0-0.1 Comprehensive metabolic panel - 09/05/17 10:20 Serum or plasma sodium measurement (moles/volume) 141 mmol/L 135-145 Serum or plasma potassium measurement (moles/volume) 4.4 mmol/L 3.6-5.0 Serum or plasma chloride measurement (moles/volume) 107 mmol/L 98-107 Carbon dioxide 24 mmol/L 21-32 Serum or plasma anion gap determination (moles/volume) 10 mmol/L 5-14 Serum or plasma urea nitrogen measurement (mass/volume) 19 mg/dL 7-18 Serum or plasma creatinine measurement (mass/volume) 0.98 mg/dL 0.60-1.30 Serum or plasma urea nitrogen/creatinine mass ratio 19 NRG Serum or plasma creatinine measurement with calculation of estimated glomerular filtration rate > NRG Serum or plasma glucose measurement (mass/volume) 91 mg/dL 70-105 Serum or plasma calcium measurement (mass/volume) 9.5 mg/dL 8.5-10.1 Serum or plasma total bilirubin measurement (mass/volume) 0.6 mg/dL 0.1-1.0 Serum or plasma alkaline phosphatase measurement (enzymatic activity/volume) 69 U/L 40-136 Serum or plasma aspartate aminotransferase measurement (enzymatic activity/ volume) 32 U/L 5-34 Serum or plasma alanine aminotransferase measurement (enzymatic activity/volume ) 47 U/L 0-55 Serum or plasma protein measurement (mass/volume) 7.4 g/dL 6.4-8.2 Serum or plasma albumin measurement (mass/volume) 4.2 g/dL 3.2-4.5 Lipid 1996 panel - 09/05/17 10:20 Serum or plasma triglyceride measurement (mass/volume) 75 mg/dL <150 Serum or plasma cholesterol measurement (mass/volume) 188 mg/dL < 200 Serum or plasma cholesterol in HDL measurement (mass/volume) 57 mg/ dL 40-60 Cholesterol in LDL [mass/volume] in serum or plasma by direct assay 112 mg/dL 1-129 Serum or plasma cholesterol in VLDL measurement (mass/volume) 15 mg/ dL 5-40 Encounters ACCT No. Visit Date/Time Discharge Status Pt. Type Provider Facility Loc./Unit Complaint [id number] 10/13/2014 07:54:00 10/13/2014 23:59:59 VERITO Outpatient JESSICA MARTELL PHD [id number] 08/25/2014 09:50:00 08/25/2014 23:59:59 VERITO Outpatient JESSICA MARTELL PHD [id number] 08/04/2014 07:58:00 08/04/2014 23:59:59 VERITO Outpatient ASIA MALAVE PHD [id number] 07/12/2014 08:54:00 07/12/2014 23:59:59 VERITO Outpatient ASIA MALAVE PHD [id number] 06/09/2014 09:04:00 06/09/2014 23:59:59 VERITO Outpatient ASIA MALAVE PHD [id number] 05/20/2014 07:53:00 05/20/2014 23:59:59 VERITO Outpatient ASIA MALAVE PHD [id number] 04/29/2014 07:58:00 04/29/2014 23:59:59 VERTIO Outpatient ASIA MALAVE PHD [id number] 04/08/2014 08:00:00 04/08/2014 23:59:59 VERITO Outpatient ASIA MALAVE PHD [id number] 03/18/2014 07:57:00 03/18/2014 23:59:59 CLS Outpatient ASIA MALAVE PHD [id number] 02/18/2014 07:58:00 02/18/2014 23:59:59 VERITO Outpatient ASIA MALAVE PHD [id number] 01/28/2014 07:55:00 01/28/2014 23:59:59 VERITO Outpatient ASIA MALAVE PHD [id number] 01/14/2014 07:52:00 01/14/2014 23:59:59 VERITO Outpatient ASIA MALAVE PHD [id number] 12/25/2013 15:54:00 12/25/2013 23:59:59 VERITO Outpatient ASIA MALAVE PHD [id number] 12/08/2013 14:51:00 12/08/2013 23:59:59 VERITO Outpatient ASIA MALAVE PHD [id number] 11/06/2013 12:47:00 11/06/2013 23:59:59 VERITO Outpatient ASIA MALAVE PHD [id number] 10/01/2017 08:00:00 10/01/2017 23:59:59 CLS Outpatient Shakira [facility]orga [facility] [id number] 09/05/2017 10:13:00 09/05/2017 23:59:59 CLS Outpatient SHAKIRA MAYORGA DO [facility] LAB E78.0,E78.4,Z00.00 [id number] 06/04/2017 09:06:00 06/04/2017 23:59:59 CLS Outpatient SUHA DE LA ROSA MD [facility] CARD CHEST PAIN SYNDROME,HTN, PAULIE,SOB,VENTRICULAR TACHY [id number] 05/07/2017 15:45:00 05/07/2017 23:59:59 CLS Preadmit SUHA DE LA ROSA MD [facility] CARD HTN I10 [id number] 02/27/2017 06:39:00 02/27/2017 23:59:59 CLS Outpatient SHAKIRA MAYORGA DO [facility] LAB ROUTINE LABS [id number] 01/16/2017 17:21:00 01/19/2017 13:45:00 DIS Inpatient SHAKIRA MAYORGA DO [facility] 4TH SEPSIS,HYPOXIA [id number] 08/23/2016 07:46:00 08/23/2016 23:59:59 CLS Outpatient MAYORGA DO, SHAKIRA [facility] LAB Z00.00 [id number] 08/23/2016 07:40:00 08/23/2016 23:59:59 CLS Outpatient JAMIN VACA KASIA Gee [facility] LAB HYPERLIPIDEMIA [id number] 03/01/2016 07:44:00 03/01/2016 23:59:59 CLS Outpatient MAYORGA DO SHAKIRA [facility] LAB HYPERGLYCERIDEMIA [id number] 01/28/2015 07:35:00 01/28/2015 23:59:59 CLS Outpatient MAYORGA DO SHAKIRA [facility] LAB HEALTH SCREENING,HTN, SEIZURE DISORDER [id number] 12/02/2014 11:03:00 12/02/2014 23:59:59 CLS Outpatient MAYORGA DO SHAKIRA [facility] LAB EXPOSURE TO TUBERCULOSIS [id number] 08/16/2014 07:48:00 08/16/2014 23:59:59 CLS Outpatient SUHA DE LA ROSA MD [facility] CARD HTN,LVH,PAULIE [id number] 08/09/2014 13:45:00 08/09/2014 23:59:59 CLS Outpatient YASMINE RAVI MD [facility] RT ASHTMA COPD [id number] 07/23/2014 08:00:00 07/23/2014 23:59:59 CLS Outpatient DANFE FRAIRE SHAKIRA [facility] LAB COPD,HEALTH SCREENING [id number] 06/14/2014 10:06:00 06/14/2014 23:59:59 CLS Outpatient YASMINE RAVI MD [facility] LAB DEEP VENOUS THROMBOSIS [id number] 04/19/2014 08:51:00 04/19/2014 23:59:59 CLS Outpatient YASMINE RAVI MD [facility] LAB DVT [id number] 12/01/2013 08:04:00 03/01/2014 00:01:00 DIS Outpatient SUHA DE LA ROSA MD [facility] CARD COPD,DYSPNEA,HTN [id number] 02/09/2014 08:15:00 02/09/2014 23:59:59 CLS Outpatient YASMINE RAVI MD [facility] LAB DVT [id number] 01/01/2014 07:42:00 01/01/2014 23:59:59 CLS Outpatient SHAKIRA MAYORGA DO [facility] LAB CYST,HPERTENSION,EDEMA LEG [id number] 12/03/2013 12:56:00 12/03/2013 23:59:59 CLS Outpatient SUHA DE LA ROSA MD [facility] CARD COPD,DYSPNEA,HTN [id number] 11/30/2013 08:50:00 11/30/2013 23:59:59 CLS Outpatient YASMINE RAVI MD [facility] LAB DVT [id number] 11/10/2013 21:01:00 11/11/2013 06:20:00 DIS Outpatient HENRIQUE TERRAZAS [employer] [facility] SLEEP EXCESSIVE DAYTIME TIREDNES,SNORING [id number] 10/05/2013 10:55:00 10/05/2013 23:59:59 CLS Outpatient YASMINE RAVI MD [facility] LAB DVT [id number] 08/14/2013 09:25:00 08/14/2013 23:59:59 CLS Outpatient YASMINE RAVI MD [facility] LAB DVT [id number] 06/30/2013 09:34:00 06/30/2013 23:59:59 CLS Outpatient SHAKIRA MAYORGA DO [facility] LAB SIEZURE DISORDER,EDEMA, BACK PAIN,HYPERTENSION [id number] 06/16/2013 09:30:00 06/16/2013 23:59:59 CLS Outpatient YASMINE RAVI MD [facility] LAB DVT [id number] 05/14/2013 09:03:00 05/25/2013 10:45:00 DIS Outpatient YASMINE RAVI MD [facility] LAB COUMADIN THERAPY [id number] 02/09/2013 08:10:00 02/15/2013 00:01:00 DIS Outpatient YASMINE RAVI MD [facility] LAB COUMADIN THERAPY [id number] 02/09/2013 07:52:00 02/09/2013 23:59:59 CLS Outpatient RJ MATAMOROS, SUHA Phan [facility] LAB HYPERLIPIDEMIA [id number] 10/24/2017 17:55:00 ACT Inpatient ROSANGELA MAYORGA DOI [facility] 4TH ABDOMINAL PAIN;FEVER [id number] 03/02/2014 08:30:00 Document Registration [id number] 10/08/2012 08:14:00 Document Registration [id number] 09/22/2012 12:59:00 Document Registration [id number] 02/07/2012 07:53:00 Document Registration [id number] 01/30/2012 08:29:00 Document Registration [id number] 01/30/2012 08:25:00 Document Registration [id number] 11/05/2011 08:11:00 Document Registration [id number] 09/05/2011 08:25:00 Document Registration [id number] 08/08/2011 08:21:00 Document Registration [id number] 05/24/2011 00:00:00 Document Registration [id number] 05/17/2011 12:52:00 Document Registration [id number] 02/26/2011 08:44:00 Document Registration [id number] 04/21/2008 00:00:00 Document Registration [id number] 06/10/2017 09:14:00 09/10/2017 12:00:00 DIS Outpatient Benoit Desouza [id number] 06/03/2017 13:27:00 06/03/2017 23:59:00 DIS Outpatient Benoit Desouza [id number] 01/28/2015 07:37:12 ACT Document Registration
[2017-10-24] MEDS ORDERED: ONDANSETRON 4 MG/2 ML (SDV) Z0FRAN IVP PRN (18:15)
[2017-10-24] MEDS ORDERED: PIPERACILLIN SODIUM/TAZOBACTAM 4.5 GM in NS (IVPB) 100 ML IV SCH (18:15)
[2017-10-24] MEDS ORDERED: ALPRAZolam 0.25 MG (XANAX) TAB PO PRN (18:15)
[2017-10-24] MEDS ORDERED: ACETAMINOPHEN 500 MG TAB (TYLENOL) PO PRN (18:15)
[2017-10-24] MEDS ORDERED: fentaNYL INJECTION 100 MCG/2 ML AMP IVP PRN (18:15)
[2017-10-24 18:27] LABS: BASOPHILS % (AUTO) 0 % (0-10); EOSINOPHILS # (AUTO) 0.1 10^3/uL (0.0-0.3); EOSINOPHILS % (AUTO) 1 % (0-10); HEMATOCRIT 45 % (40-54); HEMOGLOBIN 15.7 G/DL (13.3-17.7); LYMPHOCYTES # (AUTO) 1.6 X 10^3 (1.0-4.0); LYMPHOCYTES % (AUTO) 11 % (12-44); MEAN CORPUSCULAR HEMOGLOBIN 32 PG (25-34); MEAN CORPUSCULAR HGB CONC 35 G/DL (32-36); MEAN CORPUSCULAR VOLUME 91 FL (80-99); MONOCYTES # (AUTO) 2.1 X 10^3 (0.0-1.0); MONOCYTES % (AUTO) 14 % (0-12); NEUTROPHILS # (AUTO) 11.1 X 10^3 (1.8-7.8); NEUTROPHILS % (AUTO) 75 % (42-75); PLATELET COUNT 253 10^3/uL (130-400); RED BLOOD COUNT 4.91 10^6/uL (4.35-5.85); WHITE BLOOD COUNT 14.9 10^3/uL (4.3-11.0)
[2017-10-24] MEDS ORDERED: PIPERACILLIN SODIUM/TAZOBACTAM 4.5 GM in NS (IVPB) 100 ML IV NR (18:30)
[2017-10-24] MEDS ORDERED: CATHETER FLUSH 10 ML SYR IV PRN ×2 (18:30→19:15)
[2017-10-24] MEDS: NS IV 1000 ML 1,000 ML IV SCH (18:35)
[2017-10-24 18:50] LABS: ALANINE AMINOTRANSFERASE 42 U/L (0-55); ALBUMIN 4.3 GM/DL (3.2-4.5); ALKALINE PHOSPHATASE 66 U/L (40-136); AMYLASE 407 U/L (25-125); BILIRUBIN,TOTAL 0.9 MG/DL (0.1-1.0); BUN/CREATININE RATIO 14; CALCIUM 9.5 MG/DL (8.5-10.1); CARBON DIOXIDE 22 MMOL/L (21-32); CHLORIDE 105 MMOL/L (98-107); CREATININE SERUM 0.94 MG/DL (0.60-1.30); ERYTHROCYTE SEDIMENTATION RATE 8 MM/HR (0-30); GFR ESTIMATED > 60; GLUCOSE 95 MG/DL (70-105); LIPASE 797 U/L (8-78); POTASSIUM 4.4 MMOL/L (3.6-5.0); SODIUM 138 MMOL/L (135-145); TOTAL PROTEIN 7.7 GM/DL (6.4-8.2)
[2017-10-24 19:03] LABS: BAND NEUTROPHILS 0 %; BASOPHILS % (MANUAL) 1 %; EOSINOPHILS % (MANUAL) 0 %; LYMPHOCYTES % (MANUAL) 20 %; MONOCYTES % (MANUAL) 3 %; NEUTROPHILS % (MANUAL) 76 %; RBC MORPH NORMAL
[2017-10-24] MEDS ORDERED: NS 250 ML (IVPB) BAG IV ONE (19:15)
[2017-10-24] MEDS ORDERED: IOHEXOL 350 MG/ML 100 ML (OMNIPAQUE 350) VIAL IV ONE (19:15)
--- NOTE | 2017-10-24 19:20 | Diagnostic Imaging Report ---
INDICATION: Fever. EXAMINATION: PA and lateral views of the chest. FINDINGS: The heart size and vascularity are normal. Lungs are clear. There is no effusion. There is no acute bony abnormality. IMPRESSION: No acute abnormality is seen. The infiltrates seen on the study from 01/16/2017 have cleared. Dictated by: Dictated on workstation # [id number]
--- NOTE | 2017-10-24 19:40 | Diagnostic Imaging Report ---
PROCEDURE: CT abdomen and pelvis with contrast. TECHNIQUE: Multiple contiguous axial images were obtained through the abdomen and pelvis after administration of intravenous contrast. INDICATION: Fever, abdominal pain. FINDINGS: The liver, gallbladder, and bile ducts are normal. There is a 12 mm enhancing lesion in the spleen, which may be a hemangioma. The pancreas and adrenals are normal. Kidneys, ureters, and bladder are normal. No acute bowel abnormality is seen. There is no free intraperitoneal air or fluid. There is no mass. There is no acute bony abnormality. IMPRESSION: There is a small enhancing lesion in the spleen, which was present on a prior study from 2007. No acute abnormality in the abdomen or pelvis is seen. Dictated by: Dictated on workstation # [id number]
[2017-10-24 20:50] VITALS: BP 133/72
--- NOTE | 2017-10-24 21:04 | Consultation ---
History of Present Illness History of Present Illness Patient Consulted On(vanita/time) 10/24/17 20:59 Date Seen by Provider: Oct 24, 2017 Time Seen by Provider: 20:59 History of Present Illness consult requested by Dr. Mayorga for epigastric abdominal pain. Patient has been having epigastric abdominal pain for 2 days prior to admission. burning sensation that comes and goes. Radiates to both sides. Nothing making worse and if laying still makes better. Having fever up to 102 degrees. Not having any nausea or emesis. Just not feeling well. Patient denies sweats chills shortness of breath or chest pain. Patient does note a chronic cough. Allergies and Home Medications Allergies Coded Allergies: No Known Drug Allergies (Verified , 10/24/17) Home Medications Albuterol Sulfate 1 Puff Puff, 2 PUFF IH EVERY 4-6 HOURS PRN for SHORTNESS OF BREATH, (Reported) Albuterol Sulfate 2.5 Mg/3 Ml Vial.neb, 2.5 MG IH DAILY PRN for SHORTNESS OF BREATH, (Reported) Amlodipine Besylate 10 Mg Tablet, 10 MG PO DAILY, (Reported) Ascorbic Acid 1,000 Mg Tablet, 1,000 MG PO DAILY, (Reported) Budesonide 0.5 Mg/2 Ml Ampul.neb, 0.5 MG IH BID, (Reported) Cholecalciferol (Vitamin D3) 2,000 Unit Capsule, 2,000 UNIT PO DAILY, (Reported) Formoterol Fumarate 20 Mcg/2 Ml Vial.neb, 20 MCG IH BID, (Reported) Guaifenesin 600 Mg Tab.er.12h, 1,200 MG PO BID, (Reported) TAKES 2 (600 MG) TABLETS Levofloxacin 750 Mg Tablet, 750 MG PO DAILY Prescribed by: SHAKIRA MAYORGA on 01/19/17 1050 Loratadine 10 Mg Tablet, 10 MG PO DAILY, (Reported) Loteprednol Etabonate 5 Gm Drops.gel, 1 DROP OS DAILY, (Reported) Montelukast Sodium 10 Mg Tablet, 10 MG PO DAILY, (Reported) Multivit-Min/FA/Lycopen/Lutein 1 Each Tablet, 1 TAB PO DAILY, (Reported) [place]-3 Fatty Acids/Fish Oil 1 Each Capsule, 1,200 MG PO BID, (Reported) Omeprazole 20 Mg Capsule.dr, 20 MG PO DAILY, (Reported) Phenytoin Sodium Extended 100 Mg Capsule, 400 MG PO Q48H, (Reported) TAKES 4 (100 MG) CAPSULES EVERY OTHER DAY ALTERNATING WITH 3 (100 MG) CAPSULES Phenytoin Sodium Extended 100 Mg Capsule, 300 MG PO Q48H, (Reported) TAKES 3 (100 MG) CAPSULES EVERY OTHER DAY ALTERNATING WITH 4 (100 MG) CAPSULES Prednisone 10 Mg Tab.ds.pk, 10 MG PO DAILY Take 6 tabs(60mg)daily,decrease by 1 tab(10mg)every other day. Prescribed by: SHAKIRA MAYORGA on 01/19/17 1050 Testosterone 75 Gm Gel.fractionation supervisor, 40.5 MG TP DAILY, (Reported) APPLIES 2 PUMPS OF A 20.25MG/ACTUATION (1.62%) GEL Tiotropium [place] 1 Inh Aerp, 1 CAP IH DAILY, (Reported) Vitamin B Complex & Vit C No.4 150 Mg Tablet, 150 MG PO DAILY, (Reported) Patient Home Medication List Home Medication List Reviewed: Yes Past Sfqpwmr-Yldeeb-Tddytl Hx Patient Social History Alcohol Use: Denies Use Recreational Drug Use: No Smoking Status: Former Smoker Former Smoker, Quit: Dec 22, 2006 Type Used: Cigarettes 2nd Hand Smoke Exposure: No Recent Foreign Travel: No Contact w/Someone Who Travel: No Recent Infectious Disease Expo: No Recent Hopitalizations: No Physical Abuse Screen: No Sexual Abuse: No Seasonal Allergies Seasonal Allergies: No Surgeries History of Surgeries: Yes (IVC filter) Surgeries: Eye Surgery, Tonsillectomy Respiratory History of Respiratory Disorde: Yes (HYPERSENSITIVITY PNUEMONITIS) Respiratory Disorders: Asthma, Sleep Apnea, COPD Cardiovascular History of Cardiac Disorders: Yes (DVT 08 ) Cardiac Disorders: Deep Vein Thrombosis, High Cholesterol, Hypertension Neurological History of Neurological Disord: Yes (SEIZURES A KID) Neurological Disorders: Seizure Disorder Reproductive System Hx Reproductive Disorders: No Genitourinary History of Genitourinary Disor: No Gastrointestinal History of Gastrointestinal Di: Yes Gastrointestinal Disorders: Gastroesophageal Reflux Musculoskeletal History of Musculoskeletal Dis: Yes Musculoskeletal Disorders: Arthritis Endocrine History of Endocrine Disorders: No HEENT History of HEENT Disorders: No Cancer History of Cancer: No Psychosocial History of Psychiatric Problem: Yes Behavioral Health Disorders: Sleep Difficulties Integumentary History of Skin or Integumenta: No Blood Transfusions History of Blood Disorders: Yes Family Medical History Significant Family History: No Pertinent Family Hx Family Medial History: FH: diverticulitis 18 FATHER Review of Systems-General Constitutional: see HPI EENTM: no symptoms reported Respiratory: see HPI, cough Cardiovascular: no symptoms reported Gastrointestinal: see HPI Genitourinary: no symptoms reported Musculoskeletal: no symptoms reported Skin: no symptoms reported Psychiatric/Neurological: No Symptoms Reported Physical Exam-General Problems Physical Exam Vital Signs Vital Signs - First Documented 10/24/17 18:02 Temp 101.3 Pulse 95 Resp 18 B/P (MAP) 113/71 (85) Pulse Ox 97 O2 Delivery Room Air Capillary Refill : General Appearance: WD/WN, no apparent distress HEENT: normal ENT inspection Neck: non-tender, full range of motion, supple, normal inspection Respiratory: no respiratory distress, no accessory muscle use Cardiovascular: regular rate, rhythm Gastrointestinal: soft, no organomegaly; No guarding, No rebound; tenderness ( mild in epigastric region) Rectal: deferred Back: normal inspection, no CVA tenderness Extremities: non-tender, normal inspection Neurologic/Psychiatric: regulatory compliance manager II-XII nml as tested, no motor/sensory deficits, alert, normal mood/affect, oriented x 3 Skin: normal color, warm/dry Lymphatic: no adenopathy Data Review Labs Laboratory Tests 10/24/17 16:15: White Blood Count 14.9H, Red Blood Count 4.91, Hemoglobin 15.7, Hematocrit 45, Mean Corpuscular Volume 91, Mean Corpuscular Hemoglobin 32, Mean Corpuscular Hemoglobin Concent 35, Red Cell Distribution Width 13.0, Platelet Count 253, Mean Platelet Volume 10.0, Neutrophils (%) (Auto) 75, Lymphocytes (%) (Auto) 11L , Monocytes (%) (Auto) 14H, Eosinophils (%) (Auto) 1, Basophils (%) (Auto) 0, Neutrophils # (Auto) 11.1H, Lymphocytes # (Auto) 1.6, Monocytes # (Auto) 2.1H, Eosinophils # (Auto) 0.1, Basophils # (Auto) 0.0, Neutrophils % (Manual) 76, Lymphocytes % (Manual) 20, Monocytes % (Manual) 3, Eosinophils % (Manual) 0, Basophils % (Manual) 1, Band Neutrophils 0, Blood Morphology Comment NORMAL, Erythrocyte Sedimentation Rate 8, Sodium Level 138, Potassium Level 4.4, Chloride Level 105, Carbon Dioxide Level 22, Anion Gap 11, Blood Urea Nitrogen 13, Creatinine 0.94, Estimat Glomerular Filtration Rate > 60, BUN/Creatinine Ratio 14, Glucose Level 95, Lactic Acid Level 0.78, Calcium Level 9.5, Total Bilirubin 0.9, Aspartate Amino Transf (AST/SGOT) 29, Alanine Aminotransferase ( ALT/SGPT) 42, Alkaline Phosphatase 66, Troponin I < 0.30, Total Protein 7.7, Albumin 4.3, Amylase Level 407H, Lipase 797H Microbiology Assessment/Plan Assessment/Plan Assessment/Plan Epigastric abdominal pain Pancreastitis Fever Leukocytosis Patient with normal ct scan abdomen and pelvis except for lesion of spleen, which has been visualized on previous scans, I reviewed scans myself as well. his wbc is elevated along with amylase and lipase, which I feel he has an early pancreatitis which is not demonstrated radiographically. his alk phos, ast, alt and total bili all in normal range. An u/s is ordered for further evaluation for differential could be gallstone pancreatitis. NPO IV hydration On Zosyn will add Flagyl Repeat labs in am. Clinical Quality Measures DVT/VTE Risk/Contraindication: Risk Factor Score Per Nursin RFS Level Per Nursing on Admit: 4+=Very High SCARLET WETZEL DO Oct 24, 2017 21:04
[2017-10-24 21:25] VITALS: BP 113/71
[2017-10-24] MEDS: metroNIDAZOLE 500MG/100ML IVPB 100 ML IV SCH (21:36)
[2017-10-24] MEDS ORDERED: RT-ALBUTEROL SULF 2.5 MG/3 ML PRE-MIX VIAL INH PRN (21:45)
[2017-10-24 23:43] LABS: BILIRUBIN,URINE NEGATIVE (NEGATIVE); CLARITY,URINE CLEAR; GLUCOSE, URINE (UA) NEGATIVE (NEGATIVE); KETONES,URINE NEGATIVE (NEGATIVE); LEUKOCYTE ESTERASE ,URINE 1+ (NEGATIVE); NITRITE,URINE NEGATIVE (NEGATIVE); PH,URINE 6 (5-9); PROTEIN,URINE 2+ (NEGATIVE); UROBILINOGEN,URINE NORMAL (NORMAL)
[2017-10-24 23:51] LABS: COLOR,URINE YELLOW
[2017-10-24 23:52] LABS: BACTERIA,URINE NEGATIVE /HPF; SQUAMOUS EPITHELIAL CELL,UR RARE /HPF; WBC,URINE RARE /HPF
[2017-10-25 00:02] VITALS: BP 129/71
[2017-10-25] MEDS: PIPERACILLIN SODIUM/TAZOBACTAM 4.5 GM in NS (IVPB) 100 ML IV SCH ×3 (00:55→16:58)
[2017-10-25 03:44] VITALS: BP 113/64
[2017-10-25] MEDS: NS IV 1000 ML 1,000 ML IV SCH ×4 (04:49→21:28)
[2017-10-25] MEDS: metroNIDAZOLE 500MG/100ML IVPB 100 ML IV SCH ×3 (05:12→21:29)
[2017-10-25 07:04] LABS: BASOPHILS % (AUTO) 0 % (0-10); EOSINOPHILS # (AUTO) 0.3 10^3/uL (0.0-0.3); EOSINOPHILS % (AUTO) 2 % (0-10); HEMATOCRIT 43 % (40-54); HEMOGLOBIN 14.9 G/DL (13.3-17.7); LYMPHOCYTES # (AUTO) 1.8 X 10^3 (1.0-4.0); LYMPHOCYTES % (AUTO) 15 % (12-44); MEAN CORPUSCULAR HEMOGLOBIN 32 PG (25-34); MEAN CORPUSCULAR HGB CONC 34 G/DL (32-36); MEAN CORPUSCULAR VOLUME 93 FL (80-99); MEAN PLATELET VOLUME 10.6 FL (7.4-10.4); MONOCYTES # (AUTO) 1.9 X 10^3 (0.0-1.0); MONOCYTES % (AUTO) 16 % (0-12); NEUTROPHILS # (AUTO) 7.9 X 10^3 (1.8-7.8); NEUTROPHILS % (AUTO) 66 % (42-75); PLATELET COUNT 227 10^3/uL (130-400); RED BLOOD COUNT 4.68 10^6/uL (4.35-5.85); RED CELL DISTRIBUTION WIDTH 12.8 % (10.0-14.5); WHITE BLOOD COUNT 11.9 10^3/uL (4.3-11.0)
[2017-10-25 07:14] LABS: ALANINE AMINOTRANSFERASE 33 U/L (0-55); ALBUMIN 3.9 GM/DL (3.2-4.5); ALKALINE PHOSPHATASE 62 U/L (40-136); AMYLASE 243 U/L (25-125); BILIRUBIN,TOTAL 1.1 MG/DL (0.1-1.0); BUN/CREATININE RATIO 13; CALCIUM 9.2 MG/DL (8.5-10.1); CARBON DIOXIDE 24 MMOL/L (21-32); CHLORIDE 107 MMOL/L (98-107); CREATININE SERUM 1.11 MG/DL (0.60-1.30); GFR ESTIMATED > 60; GLUCOSE 93 MG/DL (70-105); LIPASE 437 U/L (8-78); POTASSIUM 4.3 MMOL/L (3.6-5.0); SODIUM 141 MMOL/L (135-145); TOTAL PROTEIN 7.1 GM/DL (6.4-8.2)
[2017-10-25 08:00] VITALS: BP 119/68
--- NOTE | 2017-10-25 10:01 | Diagnostic Imaging Report ---
PROCEDURE: US abdomen complete. TECHNIQUE: Multiple real-time grayscale images were obtained over the abdomen in various projections. INDICATION: Abdominal pain, pancreatitis and fever. COMPARISON: Correlation is made with the recent CT study performed one day earlier. FINDINGS: The liver is normal in size at 15.1 cm. No liver mass is identified. The gallbladder is without stones or sludge. No wall thickening or pericholecystic fluid is seen. No biliary duct dilatation is seen. The pancreas was obscured. The spleen is normal in size. The lesion noted on recent CT within the spleen is not visualized sonographically. Aorta was obscured. IVC is unremarkable. The right and left kidneys are unremarkable. There is no ascites. IMPRESSION: Essentially unremarkable abdominal ultrasound. Dictated by: Dictated on workstation # [id number]
[2017-10-25] MEDS: RT-ALBUTEROL SULF 2.5 MG/3 ML PRE-MIX VIAL INH SCH ×2 (10:07→19:43)
[2017-10-25] MEDS: RT-BUDESONIDE NEBS 0.5 MG/2ML (PULMICORT) AMP INH SCH ×2 (10:08→19:43)
--- NOTE | 2017-10-25 10:29 | History & Physical-Hospitalist ---
History of Present Illness HPI/Chief Complaint CC: Abdominal pain HPI: This is a 62-year-old white male with a history of severe COPD from prior smokingm and occupational exposure who presents to my clinic with complaints of abdominal pain for 48 hours. It is unusual for him to require medical care in between his scheduled visits every 6 months. He reports that the abdominal pain was mid epigastric in nature and had abruptly started 48 hours prior to presenting himself to my clinic yesterday. He reports an undercurrent of nausea and loss of appetite it does report change in bowel habits. He was running over 102 fever at my clinic along with mild tachycardia so considering my suspicion for acute cholecystitis versus acute diverticulitis since last colonoscopy was done in 2011 I admitted him under observation status on fourth floor and consulted Dr. Peralta. CT scan showed no evidence of any acute abnormality but leukocytosis of 14,000 and amylase and lipase were elevated consistent with acute pancreatitis of idiopathic source since gallbladder ultrasound did not show any stones. He has been maintained and IV fluids and pain medication we will restart home medications maintain nothing by mouth except for meds and check labs in the morning and monitor closely. Source: patient Exam Limitations: no limitations Date Seen 10/25/17 Time Seen by Provider: 09:15 Attending Physician Paula Mayorga DO PCP Paula Mayorga DO Referring Physician Date of Admission Oct 24, 2017 at 17:55 Home Medications & Allergies Home Medications Reviewed patient Home Medication Reconciliation performed by pharmacy medication reconciliations nuclear engineering technician and/or nursing. Patients Allergies have been reviewed. Allergies Allergies Coded Allergies No Known Drug Allergies (Verified10/24/17) Past Ehgtvzs-Vipnhl-Rbvrfg Hx Past Med/Social Hx: Reviewed Nursing Past Med/Soc Hx, Reviewed and Corrections made Patient Social History Marrital Status: Employed/Student: retired Alcohol Use: Denies Use Recreational Drug Use: No Smoking Status: Former Smoker Former Smoker, Quit: Dec 22, 2006 Type Used: Cigarettes 2nd Hand Smoke Exposure: No Physical Abuse Screen: No Sexual Abuse: No Recent Foreign Travel: No Contact w/other who traveled: No Recent Hopitalizations: No Recent Infectious Disease Expo: No Seasonal Allergies Seasonal Allergies: No Past Medical History Surgeries: Eye Surgery, Tonsillectomy Respiratory: COPD, Pneumonia Currently Using CPAP: Yes Cardiac: Deep Vein Thrombosis, High Cholesterol, Hypertension Neurological: Seizure Disorder Reproductive: No Gastrointestinal: Gastroesophageal Reflux Musculoskeletal: Arthritis Psychosocial: Sleep Difficulties History of Blood Disorders: Yes Family History FH: diverticulitis 19 FATHER Hypertension Review of Systems Constitutional: see HPI, malaise EENTM: no symptoms reported Respiratory: no symptoms reported Cardiovascular: no symptoms reported Gastrointestinal: abdominal pain (RUQ), constipation, loss of appetite, nausea Genitourinary: no symptoms reported Musculoskeletal: no symptoms reported Skin: no symptoms reported Psychiatric/Neurological: No Symptoms Reported All Other Systems Reviewed Negative Unless Noted: Yes Physical Exam Physical Exam Vital Signs Vital Signs - First Documented 10/24/17 18:02 Temp 101.3 Pulse 95 Resp 18 B/P (MAP) 113/71 (85) Pulse Ox 97 O2 Delivery Room Air Capillary Refill : Less Than 3 Seconds General Appearance: No Apparent Distress, WD/WN, Chronically ill, Obese Eyes: Bilateral Eye Normal Inspection, Bilateral Eye PERRL HEENT: PERRL/EOMI, Normal ENT Inspection, Pharynx Normal Neck: Full Range of Motion, Normal Inspection, Non Tender, Supple, Carotid Bruit Respiratory: Chest Non Tender, Lungs Clear, Normal Breath Sounds, No Accessory Muscle Use, No Respiratory Distress Cardiovascular: Regular Rate, Rhythm, No Edema, No Gallop, No JVD, No Murmur, Normal Peripheral Pulses Gastrointestinal: Normal Bowel Sounds, No Organomegaly, No Pulsatile Mass, Tenderness Back: Normal Inspection, No CVA Tenderness, No Vertebral Tenderness Extremity: Normal Capillary Refill, Normal Inspection, Normal Range of Motion, Non Tender, No Calf Tenderness, No Pedal Edema Neurologic/Psychiatric: Alert, Oriented x3, No Motor/Sensory Deficits, Normal Mood/Affect Skin: Normal Color, Warm/Dry Lymphatic: No Adenopathy Results Results/Procedures Labs Laboratory Tests 10/24/17 16:15 10/25/17 05:48 Patient resulted labs reviewed. Assessment/Plan Admission Diagnosis Acute pancreatitis Plan: Continue IV fluids Pain control Home medications reconciled and restarted Monitor closely Check labs in a.m. Dr. Peralta consultation is appreciated Admission Status: Inpatient Order (span 2 midnights) Reason for Inpatient Admission: Acute pancreatitis requiring NPO status with IVF for at least 3 days Diagnosis/Problems Diagnosis/Problems (1) Pancreatitis Status: Acute Qualifiers: Chronicity: acute Pancreatitis type: idiopathic Acute pancreatitis complication: infected necrosis Qualified Codes: K85.02 - Idiopathic acute pancreatitis with infected necrosis (2) Abdominal pain Status: Acute Qualifiers: Abdominal location: epigastric Qualified Codes: R10.13 - Epigastric pain (3) Chronic obstructive airway disease Status: Chronic Qualifiers: COPD type: unspecified COPD Qualified Codes: J44.9 - Chronic obstructive pulmonary disease, unspecified (4) Hypertension Status: Chronic Qualifiers: Hypertension type: essential hypertension Qualified Codes: I10 - Essential (primary) hypertension (5) PAULIE (obstructive sleep apnea) Status: Chronic Clinical Quality Measures DVT/VTE Risk/Contraindication: Risk Factor Score Per Nursin RFS Level Per Nursing on Admit: 4+=Very High PAULA MAYORGA DO Oct 25, 2017 10:29
[2017-10-25] MEDS ORDERED: PHEN100C11 PO (10:40)
[2017-10-25] MEDS ORDERED: FLUT16SP22 NS (10:40)
[2017-10-25] MEDS ORDERED: ROFL500T4 PO (10:40)
[2017-10-25] MEDS ORDERED: RT-ALBUTEROL SULF 2.5 MG/3 ML PRE-MIX VIAL IH PRN (11:00)
[2017-10-25] MEDS ORDERED: NON-FORMULARY MEDICATION 1 EA EA (Albuterol Sulfate (Proair Hfa) 2 PUFF) IH PRN (11:00)
[2017-10-25] MEDS ORDERED: PHENYTOIN 100 MG (DILANTIN) CAP PO SCH ×2 (11:00→21:00)
[2017-10-25 12:00] VITALS: BP 110/56
--- NOTE | 2017-10-25 13:36 | Progress Note ---
Subjective Date Seen by Provider: Oct 25, 2017 Time Seen by Provider: 09:00 Subjective/Events-last exam patient feeling a little bit better. abdominal pain minimal. no nausea or emesis. abdominal u/s no stone or sludge no gb wall thickening or pericholecystic fluid denies n/v fever sweats chills shortness of breath or chest pain. Amylase, lipase, and wbc down some. Focused Exam Lactate Level 10/24/17 16:15: Lactic Acid Level 0.78 Objective Exam Vital Signs Date Time Temp Pulse Resp B/P (MAP) Pulse Ox O2 Delivery O2 Flow Rate FiO2 10/25/17 12:00 98.1 81 16 110/56 (74) 94 Room Air 10/25/17 10:13 97 10/25/17 10:06 93 Room Air 10/25/17 09:18 96 Room Air 10/25/17 08:00 98.3 69 16 119/68 (85) Room Air 10/25/17 07:00 85 10/25/17 03:44 99.4 67 17 113/64 (80) 96 Room Air 10/25/17 01:00 72 10/25/17 00:02 99.8 66 17 129/71 (90) 96 Room Air 10/24/17 21:27 77 10/24/17 21:25 95 97 10/24/17 20:50 99.3 65 20 133/72 (92) 95 Room Air 10/24/17 18:02 101.3 95 18 113/71 (85) 97 Room Air 10/24/17 18:02 Room Air I & O 10/25/17 07:00 Intake Total 1400 ml Output Total 900 ml Balance 500 ml Capillary Refill : Less Than 3 Seconds General Appearance: No Apparent Distress, WD/WN, Chronically ill, Obese HEENT: PERRL/EOMI, Normal ENT Inspection Neck: Full Range of Motion, Normal Inspection, Non Tender, Supple Respiratory: Chest Non Tender, No Accessory Muscle Use, No Respiratory Distress Cardiovascular: Regular Rate, Rhythm Gastrointestinal: soft, no organomegaly; No guarding, No rebound; tenderness ( mild in epigastric region) Extremity: Normal Capillary Refill, Normal Inspection, Normal Range of Motion, Non Tender, No Calf Tenderness, No Pedal Edema Neurologic/Psychiatric: Alert, Oriented x3, No Motor/Sensory Deficits, Normal Mood/Affect Skin: Normal Color, Warm/Dry Lymphatic: No Adenopathy Results Lab Laboratory Tests 10/24/17 16:15: White Blood Count 14.9H, Red Blood Count 4.91, Hemoglobin 15.7, Hematocrit 45, Mean Corpuscular Volume 91, Mean Corpuscular Hemoglobin 32, Mean Corpuscular Hemoglobin Concent 35, Red Cell Distribution Width 13.0, Platelet Count 253, Mean Platelet Volume 10.0, Neutrophils (%) (Auto) 75, Lymphocytes (%) (Auto) 11L , Monocytes (%) (Auto) 14H, Eosinophils (%) (Auto) 1, Basophils (%) (Auto) 0, Neutrophils # (Auto) 11.1H, Lymphocytes # (Auto) 1.6, Monocytes # (Auto) 2.1H, Eosinophils # (Auto) 0.1, Basophils # (Auto) 0.0, Neutrophils % (Manual) 76, Lymphocytes % (Manual) 20, Monocytes % (Manual) 3, Eosinophils % (Manual) 0, Basophils % (Manual) 1, Band Neutrophils 0, Blood Morphology Comment NORMAL, Erythrocyte Sedimentation Rate 8, Sodium Level 138, Potassium Level 4.4, Chloride Level 105, Carbon Dioxide Level 22, Anion Gap 11, Blood Urea Nitrogen 13, Creatinine 0.94, Estimat Glomerular Filtration Rate > 60, BUN/Creatinine Ratio 14, Glucose Level 95, Lactic Acid Level 0.78, Calcium Level 9.5, Total Bilirubin 0.9, Aspartate Amino Transf (AST/SGOT) 29, Alanine Aminotransferase ( ALT/SGPT) 42, Alkaline Phosphatase 66, Troponin I < 0.30, Total Protein 7.7, Albumin 4.3, Amylase Level 407H, Lipase 797H 10/24/17 18:30: 10/24/17 23:30: Urine Color YELLOW, Urine Clarity CLEAR, Urine pH 6, Urine Specific [place] 1.015L, Urine Protein 2+H, Urine Glucose (UA) NEGATIVE, Urine Ketones NEGATIVE, Urine Nitrite NEGATIVE, Urine Bilirubin NEGATIVE, Urine Urobilinogen NORMAL, Urine Leukocyte Esterase 1+H, Urine RBC (Auto) NEGATIVE, Urine RBC NONE, Urine WBC RARE, Urine Squamous Epithelial Cells RARE, Urine Crystals NONE, Urine Bacteria NEGATIVE, Urine Casts NONE, Urine Mucus NEGATIVE, Urine Culture Indicated NO 10/25/17 05:48: White Blood Count 11.9H, Red Blood Count 4.68, Hemoglobin 14.9, Hematocrit 43, Mean Corpuscular Volume 93, Mean Corpuscular Hemoglobin 32, Mean Corpuscular Hemoglobin Concent 34, Red Cell Distribution Width 12.8, Platelet Count 227, Mean Platelet Volume 10.6H, Neutrophils (%) (Auto) 66, Lymphocytes (%) (Auto) 15 , Monocytes (%) (Auto) 16H, Eosinophils (%) (Auto) 2, Basophils (%) (Auto) 0, Neutrophils # (Auto) 7.9H, Lymphocytes # (Auto) 1.8, Monocytes # (Auto) 1.9H, Eosinophils # (Auto) 0.3, Basophils # (Auto) 0.0, Sodium Level 141, Potassium Level 4.3, Chloride Level 107, Carbon Dioxide Level 24, Anion Gap 10, Blood Urea Nitrogen 14, Creatinine 1.11, Estimat Glomerular Filtration Rate > 60, BUN/ Creatinine Ratio 13, Glucose Level 93, Calcium Level 9.2, Total Bilirubin 1.1H, Aspartate Amino Transf (AST/SGOT) 20, Alanine Aminotransferase (ALT/SGPT) 33, Alkaline Phosphatase 62, Total Protein 7.1, Albumin 3.9, Amylase Level 243H, Lipase 437H Microbiology Assessment/Plan Assessment/Plan Assessment/Plan Epigastric abdominal pain Pancreastitis Fever Leukocytosis ultrasound no acute abnormality seen labs improving no surgical intervention continue medical management Clinical Quality Measures DVT/VTE Risk/Contraindication: Risk Factor Score Per Nursin RFS Level Per Nursing on Admit: 4+=Very High SCARLET WETZEL DO Oct 25, 2017 13:36
[2017-10-25 16:25] VITALS: BP 124/68
[2017-10-25 19:30] VITALS: BP 138/69
[2017-10-25] MEDS ORDERED: NON-FORMULARY MEDICATION 1 EA EA (Budesonide 0.5 MG) IH SCH (21:00)
[2017-10-25] MEDS ORDERED: NON-FORMULARY MEDICATION 1 EA EA (Vitamin B Complex & Vit C No.4 (Super B Complex) 150 MG) PO SCH (21:00)
[2017-10-25] MEDS ORDERED: NON-FORMULARY MEDICATION 1 EA EA (Omega-3 Fatty Acids/Fish Oil (Fish Oil 1,200 mg Softgel) PO SCH (21:00)
[2017-10-25] MEDS ORDERED: LORATADINE (CLARITIN) 10 MG TAB PO SCH (21:00)
[2017-10-25] MEDS ORDERED: NON-FORMULARY MEDICATION 1 EA EA (Formoterol Fumarate (Perforomist) 20 MCG) IH SCH (21:00)
[2017-10-25] MEDS ORDERED: PANTOPRAZOLE 20 MG TABLET (PROTONIX) PO SCH (21:00)
[2017-10-25] MEDS ORDERED: ARFORMOTEROL 15 MCG/2 ML (BROVANA) INH SOLUTIION IH SCH (21:00)
[2017-10-25] MEDS ORDERED: ROFLUMILAST 500 MCG TAB (DALIRESP) PO SCH (21:00)
[2017-10-25] MEDS: guaiFENesin (MUCINEX) 600 MG TAB PO SCH (21:28)
[2017-10-26] VITALS: BP 112/57
[2017-10-26] MEDS: PIPERACILLIN SODIUM/TAZOBACTAM 4.5 GM in NS (IVPB) 100 ML IV SCH ×2 (02:05→08:05)
[2017-10-26 04:00] VITALS: BP 103/51
[2017-10-26] MEDS: metroNIDAZOLE 500MG/100ML IVPB 100 ML IV SCH (06:33)
[2017-10-26 06:44] LABS: BASOPHILS % (AUTO) 0 % (0-10); EOSINOPHILS # (AUTO) 0.3 10^3/uL (0.0-0.3); EOSINOPHILS % (AUTO) 3 % (0-10); HEMATOCRIT 43 % (40-54); HEMOGLOBIN 14.4 G/DL (13.3-17.7); LYMPHOCYTES # (AUTO) 1.4 X 10^3 (1.0-4.0); LYMPHOCYTES % (AUTO) 16 % (12-44); MEAN CORPUSCULAR HEMOGLOBIN 31 PG (25-34); MEAN CORPUSCULAR HGB CONC 34 G/DL (32-36); MEAN CORPUSCULAR VOLUME 92 FL (80-99); MEAN PLATELET VOLUME 10.2 FL (7.4-10.4); MONOCYTES # (AUTO) 1.2 X 10^3 (0.0-1.0); MONOCYTES % (AUTO) 14 % (0-12); NEUTROPHILS # (AUTO) 5.6 X 10^3 (1.8-7.8); NEUTROPHILS % (AUTO) 66 % (42-75); PLATELET COUNT 238 10^3/uL (130-400); RED BLOOD COUNT 4.62 10^6/uL (4.35-5.85); WHITE BLOOD COUNT 8.4 10^3/uL (4.3-11.0)
[2017-10-26] MEDS ORDERED: MULTIVIT W/MINERALS TAB (THERAGRAN M) PO SCH (07:00)
[2017-10-26] MEDS ORDERED: OMEGA 3 (FISH OIL) 1000 MG CAP PO SCH (07:00)
[2017-10-26 07:11] LABS: ALANINE AMINOTRANSFERASE 30 U/L (0-55); ALBUMIN 3.8 GM/DL (3.2-4.5); ALKALINE PHOSPHATASE 50 U/L (40-136); AMYLASE 95 U/L (25-125); BILIRUBIN,TOTAL 0.7 MG/DL (0.1-1.0); BUN/CREATININE RATIO 12; CALCIUM 9.4 MG/DL (8.5-10.1); CARBON DIOXIDE 22 MMOL/L (21-32); CHLORIDE 112 MMOL/L (98-107); GFR ESTIMATED > 60; GLUCOSE 91 MG/DL (70-105); LIPASE 131 U/L (8-78); POTASSIUM 4.3 MMOL/L (3.6-5.0); SODIUM 144 MMOL/L (135-145); TOTAL PROTEIN 6.8 GM/DL (6.4-8.2)
[2017-10-26 08:00] VITALS: BP 149/69
[2017-10-26] MEDS ORDERED: UMECLIDINIUM BROMIDE (INCRUSE ELLIPTA) 7'S IH SCH (08:00)
[2017-10-26] MEDS: NS IV 1000 ML 1,000 ML IV SCH (08:04)
[2017-10-26] MEDS: guaiFENesin (MUCINEX) 600 MG TAB PO SCH (08:05)
[2017-10-26] MEDS: RT-BUDESONIDE NEBS 0.5 MG/2ML (PULMICORT) AMP INH SCH (08:12)
[2017-10-26] MEDS: RT-ALBUTEROL SULF 2.5 MG/3 ML PRE-MIX VIAL INH SCH (08:13)
[2017-10-26] MEDS ORDERED: amLODIPine 10 MG (NORVASC) TAB PO SCH (09:00)
[2017-10-26] MEDS ORDERED: MONTELUKAST 10 MG (SINGULAIR) TAB PO SCH (09:00)
[2017-10-26] MEDS ORDERED: ASCORBIC ACID (VIT C) 500 MG TABLET PO SCH (09:00)
[2017-10-26] MEDS ORDERED: VITAMIN D3 1,000 UNITS (CHOLECALCIFEROL) TABLET PO SCH (09:00)
[2017-10-26] MEDS ORDERED: NON-FORMULARY MEDICATION 1 EA EA (Loteprednol Etabonate (Lotemax) 1 DROP) OS SCH (09:00)
[2017-10-26] MEDS ORDERED: TESTOSTERONE 40.5 MG TP SCH (09:00)
[2017-10-26] MEDS ORDERED: FLUTICASONE NASAL SPRAY (FLONASE) 16 GM BTL NS SCH (09:00)
--- NOTE | 2017-10-26 10:56 | Progress Note ---
Subjective Date Seen by Provider: Oct 26, 2017 Time Seen by Provider: 09:12 Subjective/Events-last exam Patient states he is not having any pain. He feels better. He is nothing by mouth. He's been afebrile. He denies any nausea vomiting fever sweats chills shortness of breath or chest pain. Patient with blood cell count within normal range. His lipase is trending downwards. No new complaints. Focused Exam Lactate Level 10/24/17 16:15: Lactic Acid Level 0.78 Objective Exam Vital Signs Date Time Temp Pulse Resp B/P (MAP) Pulse Ox O2 Delivery O2 Flow Rate FiO2 10/26/17 08:18 97 10/26/17 08:13 97 Room Air 10/26/17 08:00 97.8 59 18 149/69 (95) 94 Room Air 10/26/17 07:00 66 10/26/17 04:00 98.1 63 18 103/51 (68) 94 Room Air 10/26/17 01:00 62 10/26/17 00:00 99.2 67 20 112/57 (75) 94 NIV CPAP 10/25/17 20:30 Room Air 10/25/17 19:46 95 Room Air 10/25/17 19:45 95 Room Air 10/25/17 19:30 98.8 67 18 138/69 (92) 95 Room Air 10/25/17 19:00 67 10/25/17 16:25 98.7 64 18 124/68 (86) 95 Room Air 10/25/17 13:00 71 10/25/17 12:00 98.1 81 16 110/56 (74) 94 Room Air I & O 10/26/17 07:00 Intake Total 1300 ml Output Total 400 ml Balance 900 ml Capillary Refill : Less Than 3 Seconds General Appearance: No Apparent Distress, WD/WN, Chronically ill, Obese HEENT: PERRL/EOMI, Normal ENT Inspection Neck: Full Range of Motion, Normal Inspection, Non Tender, Supple Respiratory: Chest Non Tender, No Accessory Muscle Use, No Respiratory Distress Cardiovascular: Regular Rate, Rhythm Gastrointestinal: soft, no organomegaly; No guarding, No rebound Extremity: Normal Capillary Refill, Normal Inspection, Normal Range of Motion, Non Tender, No Calf Tenderness, No Pedal Edema Neurologic/Psychiatric: Alert, Oriented x3, No Motor/Sensory Deficits, Normal Mood/Affect Skin: Normal Color, Warm/Dry Lymphatic: No Adenopathy Results Lab Laboratory Tests 10/26/17 06:25: White Blood Count 8.4, Red Blood Count 4.62, Hemoglobin 14.4, Hematocrit 43, Mean Corpuscular Volume 92, Mean Corpuscular Hemoglobin 31, Mean Corpuscular Hemoglobin Concent 34, Red Cell Distribution Width 13.0, Platelet Count 238, Mean Platelet Volume 10.2, Neutrophils (%) (Auto) 66, Lymphocytes (%) (Auto) 16 , Monocytes (%) (Auto) 14H, Eosinophils (%) (Auto) 3, Basophils (%) (Auto) 0, Neutrophils # (Auto) 5.6, Lymphocytes # (Auto) 1.4, Monocytes # (Auto) 1.2H, Eosinophils # (Auto) 0.3, Basophils # (Auto) 0.0, Sodium Level 144, Potassium Level 4.3, Chloride Level 112H, Carbon Dioxide Level 22, Anion Gap 10, Blood Urea Nitrogen 11, Creatinine 0.90, Estimat Glomerular Filtration Rate > 60, BUN/ Creatinine Ratio 12, Glucose Level 91, Calcium Level 9.4, Total Bilirubin 0.7, Aspartate Amino Transf (AST/SGOT) 19, Alanine Aminotransferase (ALT/SGPT) 30, Alkaline Phosphatase 50, Total Protein 6.8, Albumin 3.8, Amylase Level 95, Lipase 131H Microbiology 10/24/17 Blood Culture - Preliminary, Resulted No growth Assessment/Plan Assessment/Plan Assessment/Plan Epigastric abdominal pain Pancreatitis Fever Leukocytosis Labs improving. His epigastric abdominal pain is resolved. We'll start on clear liquids. Would keep on clears for a couple days and then slowly advance as tolerates. Would be okay with patient being discharged home with close follow-up. Would also consider doing HIDA scan as an outpatient basis. Clinical Quality Measures DVT/VTE Risk/Contraindication: Risk Factor Score Per Nursin RFS Level Per Nursing on Admit: 4+=Very High SCARLET WETZEL DO Oct 26, 2017 10:55
[2017-10-26] MEDS ORDERED: AMOX-358 PO (11:54)
--- NOTE | 2017-10-26 11:58 | Discharge Summary-Hospitalist ---
Diagnosis/Chief Complaint Date of Admission Oct 24, 2017 at 17:55 Date of Discharge Discharge Date: Oct 26, 2017 Admission Diagnosis Acute pancreatitis Plan: Continue IV fluids Pain control Home medications reconciled and restarted Monitor closely Check labs in a.m. Dr. Peralta consultation is appreciated Discharge Diagnosis (1) Pancreatitis Status: Acute (2) Abdominal pain Status: Acute (3) Chronic obstructive airway disease Status: Chronic (4) Hypertension Status: Chronic (5) PAULIE (obstructive sleep apnea) Status: Chronic Discharge Summary Discharge Physical Exam Allergies: Coded Allergies: No Known Drug Allergies (Verified , 10/24/17) Vitals & I&Os Vital Signs Date Time Temp Pulse Resp B/P (MAP) Pulse Ox O2 Delivery O2 Flow Rate FiO2 10/26/17 08:18 97 10/26/17 08:13 Room Air 10/26/17 08:00 97.8 59 18 149/69 (95) General Appearance: Alert, Oriented X3, Cooperative HEENT: Atraumatic, PERRLA Respiratory: Clear to Auscultation, Normal Air Movement Abdominal: Normal Bowel Sounds, Soft, No Tenderness Neuro: Normal Gait, Normal Speech, Strength at 5/5 X4 Ext Psych/Mental Status: Mental Status NL, Mood NL Hospital Course Hospital course: Patient had a brief hospital course he was directly admitted from my office and observation status due to nonspecific vague epigastric pain that was either acute cholecystitis or acute diverticulitis due to fever of 102 and just overall loss of appetite and nausea but upon evaluation CT scan showed very subtle pancreatic inflammation and amylase and lipase were elevated confirming acute pancreatitis initial episode. He is a nondrinker of alcohol and has been for many years never anything but very rare use anyway and the gallbladder ultrasound did not show any type of stones so Dr. Peralta was gracious enough to evaluate the patient and follow along and recommended a HIDA scan as an outpatient with close follow-up at discharge and I will see him on Saturday. Augmentin will be maintained in case this was any type of bacterial origin of the pancreas giving rise to the pancreatitis so he will be on Augmentin for 7 days and I restarted all of his home medications that he will restart those once he gets home and no changes were made for those. No pain was reported and thus no pain medication was prescribed at discharge. Labs (last 24 hrs) Laboratory Tests 10/26/17 06:25: White Blood Count 8.4, Red Blood Count 4.62, Hemoglobin 14.4, Hematocrit 43, Mean Corpuscular Volume 92, Mean Corpuscular Hemoglobin 31, Mean Corpuscular Hemoglobin Concent 34, Red Cell Distribution Width 13.0, Platelet Count 238, Mean Platelet Volume 10.2, Neutrophils (%) (Auto) 66, Lymphocytes (%) (Auto) 16 , Monocytes (%) (Auto) 14H, Eosinophils (%) (Auto) 3, Basophils (%) (Auto) 0, Neutrophils # (Auto) 5.6, Lymphocytes # (Auto) 1.4, Monocytes # (Auto) 1.2H, Eosinophils # (Auto) 0.3, Basophils # (Auto) 0.0, Sodium Level 144, Potassium Level 4.3, Chloride Level 112H, Carbon Dioxide Level 22, Anion Gap 10, Blood Urea Nitrogen 11, Creatinine 0.90, Estimat Glomerular Filtration Rate > 60, BUN/ Creatinine Ratio 12, Glucose Level 91, Calcium Level 9.4, Total Bilirubin 0.7, Aspartate Amino Transf (AST/SGOT) 19, Alanine Aminotransferase (ALT/SGPT) 30, Alkaline Phosphatase 50, Total Protein 6.8, Albumin 3.8, Amylase Level 95, Lipase 131H Microbiology 10/24/17 Blood Culture - Preliminary, Resulted No growth Patient resulted labs reviewed. Pending Labs Laboratory Tests 10/26/17 06:25: White Blood Count 8.4, Red Blood Count 4.62, Hemoglobin 14.4, Hematocrit 43, Mean Corpuscular Volume 92, Mean Corpuscular Hemoglobin 31, Mean Corpuscular Hemoglobin Concent 34, Red Cell Distribution Width 13.0, Platelet Count 238, Mean Platelet Volume 10.2, Neutrophils (%) (Auto) 66, Lymphocytes (%) (Auto) 16 , Monocytes (%) (Auto) 14, Eosinophils (%) (Auto) 3, Basophils (%) (Auto) 0, Neutrophils # (Auto) 5.6, Lymphocytes # (Auto) 1.4, Monocytes # (Auto) 1.2, Eosinophils # (Auto) 0.3, Basophils # (Auto) 0.0, Sodium Level 144, Potassium Level 4.3, Chloride Level 112, Carbon Dioxide Level 22, Anion Gap 10, Blood Urea Nitrogen 11, Creatinine 0.90, Estimat Glomerular Filtration Rate > 60, BUN/ Creatinine Ratio 12, Glucose Level 91, Calcium Level 9.4, Total Bilirubin 0.7, Aspartate Amino Transf (AST/SGOT) 19, Alanine Aminotransferase (ALT/SGPT) 30, Alkaline Phosphatase 50, Total Protein 6.8, Albumin 3.8, Amylase Level 95, Lipase 131 Discussion & Recommendations Discharge Planning: <30 minutes discharge planning Discharge Home Medications: Active Scripts Active Augmentin 875-125 Tablet (Amoxicillin/Potassium Clav) 1 Each Tablet 1 Each PO BID Reported Daliresp (Roflumilast) 500 Mcg Tablet 500 Mcg PO HS Fluticasone Propionate 16 Gm [place].susp 2 Sprays NS DAILY Phenytoin Sodium Extended 100 Mg Capsule 400 Mg PO Q48H TAKES 4 (100MG) CAPSULES AT BEDTIME Androgel (Testosterone) 75 Gm Gel.cold rolling machine setter 40.5 Mg TP DAILY APPLIES 2 PUMPS OF A 20.25MG/ACTUATION (1.62%) GEL Mucinex (Guaifenesin) 600 Mg Tab.er.12h 600 Mg PO BID Lotemax (Loteprednol Etabonate) 5 Gm Drops.gel 1 Drop OS DAILY Albuterol Sulfate 2.5 Mg/3 Ml Vial.neb 2.5 Mg IH Q6H PRN Vitamin D3 (Cholecalciferol (Vitamin D3)) 2,000 Unit Capsule 2,000 Unit PO DAILY Loratadine 10 Mg Tablet 10 Mg PO HS Fish Oil 1,200 mg Softgel ([place]-3 Fatty Acids/Fish Oil) 1 Each Capsule 1,200 Mg PO BID Super B Complex (Vitamin B Complex & Vit C No.4) 150 Mg Tablet 150 Mg PO HS Centrum Silver Men Tablet (Multivit-Min/FA/Lycopen/Lutein) 1 Each Tablet 1 Tab PO DAILY Vitamin C (Ascorbic Acid) 1,000 Mg Tablet 1,000 Mg PO DAILY Phenytoin Sodium Extended 100 Mg Capsule 300 Mg PO Q48H TAKES 3 (100 MG) CAPSULES EVERY OTHER DAY ALTERNATING WITH 4 (100 MG) CAPSULES Budesonide 0.5 Mg/2 Ml Ampul.neb 0.5 Mg IH BID Perforomist (Formoterol Fumarate) 20 Mcg/2 Ml Vial.neb 20 Mcg IH BID Proair Hfa (Albuterol Sulfate) 1 Puff Puff 2 Puff IH Q4H PRN Montelukast Sodium 10 Mg Tablet 10 Mg PO DAILY Spiriva (Tiotropium [place]) 1 Inh Aerp 1 Cap IH DAILY Amlodipine Besylate 10 Mg Tablet 10 Mg PO DAILY Omeprazole 20 Mg Capsule.dr 20 Mg PO HS Instructions to patient/family Please see electronic discharge instructions given to patient. Clinical Quality Measures DVT/VTE Risk/Contraindication: Risk Factor Score Per Nursin RFS Level Per Nursing on Admit: 4+=Very High Problem Qualifiers (1) Pancreatitis: Chronicity: acute Pancreatitis type: idiopathic Acute pancreatitis complication: infected necrosis Qualified Codes: K85.02 - Idiopathic acute pancreatitis with infected necrosis (2) Abdominal pain: Abdominal location: epigastric Qualified Codes: R10.13 - Epigastric pain (3) Chronic obstructive airway disease: COPD type: unspecified COPD Qualified Codes: J44.9 - Chronic obstructive pulmonary disease, unspecified (4) Hypertension: Hypertension type: essential hypertension Qualified Codes: I10 - Essential ( primary) hypertension SHAKIRA LEOS DO Oct 26, 2017 11:58
[2017-10-26 12:00] VITALS: BP 147/69
[2017-10-26] MEDS ORDERED: PHENYTOIN 100 MG (DILANTIN) CAP PO SCH (21:00)
[2017-10-27 16:19] LABS: HEPATITIS C ANTIBODY C Non-Reactive (Non-Reactive)
--- OUTSIDE RECORDS SUMMARY | 2017-10-29 11:27 | XMS REPORT | Clinical Summary ---
Author Author [facility] Organization [facility] Address Unknown Phone Unavailable Care Team Providers Care Ski Base Trimmer Name Role Phone PCP Unavailable Source Comments Some departments are not documenting in the electronic medical record. If you do not see the information that you expected, contact Release of Information in the Health Information Management department at [phone] for further assistance in locating additional records.[facility] Allergies Not on File Current [...]
--- OUTSIDE RECORDS SUMMARY | 2017-10-29 11:33 | XMS REPORT | Continuity of Care Document ---
Author Author [facility] of [facility] Address Unknown Phone Unavailable Allergies Active Description Code Type Severity Reaction Onset Reported/Identified Relationship to Patient Clinical Status Yes No Known Drug Allergies [id number] Drug Allergy Unknown N/A 10/07/2007 Medications There [...] RJ MATAMOROS, SUHA Phan Ot 327.23 12/11/2014 JR MATAMOROS, SUHA Phan Ot 401.9 12/11/2014 RJ [...] DO, SHAKIRA Ot E78.0 PURE HYPERCHOLESTEROLEMIA 03/01/2016 MAYORGA DO SHAKIRA Ot 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 03/01/2016 [place] DO SHAKIRA Ot Z00.00 ENCNTR FOR GENERAL ADULT MEDICAL EXAM W03/01/2016 DAFNE FRAIRE SHAKIRA Ot Z51.81 ENCOUNTER FOR THERAPEUTIC DRUG LEVEL MON 03/01/2016 DAFNE FRAIRE SHAKIRA Ot Z79.899 OTHER NURSING HOME (CURRENT) DRUG THERAPY 03/23/2016 DAFNE FRAIRE SHAKIRA Ot E78.0 PURE HYPERCHOLESTEROLEMIA 03/23/2016 DAFNE FRAIRE SHAKIRA Ot 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 03/23/2016 SHAKIRA MAYORGA DO Ot Z00.00 ENCNTR FOR GENERAL ADULT MEDICAL EXAM W03/23/2016 SHAKIRA MAYORGA DO Ot Z51.81 ENCOUNTER FOR THERAPEUTIC DRUG LEVEL MON 03/23/2016 SHAKIRA MAYORGA DO Ot Z79.899 OTHER NURSING HOME (CURRENT) DRUG THERAPY 06/18/2016 Ot 496 CHR [...] Sat08/23/2016 DAFNE FRAIRE SHAKIRA Ot Z79.899 OTHER [employer] MANAGER (CURRENT) DRUG THERAPY 08/24/2016 KASIA CABA Ot E78.2 MIXED HYPERLIPIDEMIA 08/24/2016 DAFNE DO SHAKIRA Ot E78.00 PURE HYPERCHOLESTEROLEMIA, UNSPECIFIED 08/24/2016 DAFNE DO SHAKIRA Ot 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 08/24/2016 DAFNE DO SHAKIRA Ot Z00.00 ENCNTR FOR GENERAL ADULT MEDICAL EXAM 08/24/2016 DAFNE FRAIRE SHAKIRA Ot Z51.81 ENCOUNTER FOR THERAPEUTIC DRUG LEVEL Sat08/24/2016 DAFNE FRAIRE SHAKIRA Ot Z79.899 OTHER NURSING HOME (CURRENT) DRUG THERAPY 09/19/2016 KASIA CABA Ot E78.2 MIXED HYPERLIPIDEMIA 10/26/2016 DAFNE FRAIRE SHAKIRA Ot E78.00 PURE HYPERCHOLESTEROLEMIA, UNSPECIFIED 10/26/2016 DAFNE DO SHAKIRA Ot 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 10/26/2016 DAFNE FRAIRE SHAKIRA Ot Z00.00 ENCNTR FOR GENERAL ADULT MEDICAL EXAM 10/26/2016 DAFNE FRAIRE SHAKIRA Ot Z51.81 ENCOUNTER FOR THERAPEUTIC DRUG LEVEL Sat10/26/2016 ROSANGELA MAYORGA DOI Ot Z79.899 OTHER [employer] MANAGER (CURRENT) DRUG THERAPY 10/30/2016 KASIA CABA Ot [...] Ot 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 05/28/2017 MAYORGAREI FRAIRE HSAKIRA Ot Z00.00 ENCNTR FOR GENERAL ADULT MEDICAL EXAM W05/28/2017 ROSANGELA MAYORGA DOI Ot Z51.81 ENCOUNTER FOR THERAPEUTIC DRUG LEVEL MON 05/28/2017 ROSANGELA MAYORGA DOI Ot Z79.899 OTHER [employer] MANAGER (CURRENT) DRUG THERAPY 05/28/2017 KASIA CABA Ot E78.2 MIXED HYPERLIPIDEMIA 05/28/2017 DAFNE FRAIRE SHAKIRA Ot E78.00 PURE HYPERCHOLESTEROLEMIA, UNSPECIFIED 05/28/2017 MAYORGAREI FRAIRE SHAKIRA Ot 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 05/28/2017 MAYORGAREI FRAIRE SHAKIRA Ot Z00.00 ENCNTR FOR GENERAL ADULT MEDICAL EXAM W05/28/2017 ROSANGELA MAYORGA DOI Ot Z51.81 ENCOUNTER FOR THERAPEUTIC DRUG LEVEL MON 05/28/2017 DAFNE FRAIRE SHAKIRA Ot Z79.899 OTHER [employer] MANAGER (CURRENT) DRUG THERAPY 05/28/2017 ROSANGELA MAYORGA DOI [...] 09/05/2017 SHAKIRA MAYORGA DO Ot Z79.899 OTHER NURSING HOME (CURRENT) DRUG THERAPY 09/05/2017 KASIA CABA Ot E78.2 MIXED HYPERLIPIDEMIA 09/05/2017 SHAKIRA MAYORGA DO Ot E78.00 PURE HYPERCHOLESTEROLEMIA, UNSPECIFIED 09/05/2017 SHAKIRA MAYORGA DO Ot 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 09/05/2017 SHAKIRA MAYORGA DO Ot Z00.00 ENCNTR FOR GENERAL ADULT MEDICAL EXAM W09/05/2017 SHAKIRA MAYORGA DO Ot Z51.81 ENCOUNTER FOR THERAPEUTIC DRUG LEVEL MON 09/05/2017 SHAKIRA MAYORGA DO Ot Z79.899 OTHER [employer] MANAGER (CURRENT) DRUG THERAPY 09/05/2017 SUHA DE LA [...] Ot Z51.81 ENCOUNTER FOR THERAPEUTIC DRUG LEVEL [facility] 09/06/2017 DAFNE FRAIRE SHAKIRA Ot E78.00 [...] [address] OBSTRUCT NEC 10/24/2017 SHAKIRA MAYORGA DO Ot 706.2 SEBACEOUS CYST 10/24/2017 SHAKIRA [...] 10/24/2017 DAFNE FRAIRE SHAKIRA Ot Z79.899 OTHER [employer] MANAGER (CURRENT) DRUG THERAPY 10/24/2017 KASIA CABA Ot E78.2 MIXED HYPERLIPIDEMIA 10/24/2017 DAFNE FRAIRE SHAKIRA Ot E78.00 PURE HYPERCHOLESTEROLEMIA, UNSPECIFIED 10/24/2017 MAYORGA DO SHAKIRA Ot 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 10/24/2017 MAYORGA DO SHAKIRA Ot Z00.00 ENCNTR FOR GENERAL ADULT MEDICAL EXAM W10/24/2017 MAYORGAREI FRAIRE SHAKIRA Ot Z51.81 ENCOUNTER FOR THERAPEUTIC DRUG LEVEL MON 10/24/2017 DAFNE FRAIRE SHAKIRA Ot Z79.899 OTHER NURSING HOME (CURRENT) DRUG THERAPY 10/24/2017 RJ MATAMOROS, SUHA [...] DOI Ot 453.40 ACUTE VENOUS EMBOLISM THROMBOSIS [facility] 10/24/2017 DAFNE FRAIRE SHAKIRA Ot 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 10/24/2017 ROSANGELA MAYORGA DOI Ot [address] OBSTRUCT NEC 10/24/2017 ROSANGELA MAYORGA DOI Ot 706.2 SEBACEOUS CYST 10/24/2017 DAFNE [...] 10/24/2017 MAYOR[place] DO SHAKIRA Ot Z79.899 OTHER NURSING HOME (CURRENT) DRUG THERAPY 10/24/2017 KASIA CABA Ot E78.2 MIXED HYPERLIPIDEMIA 10/24/2017 DAFNE DO SHAKIRA Ot E78.00 PURE HYPERCHOLESTEROLEMIA, UNSPECIFIED 10/24/2017 DAFNE DO SHAKIRA Ot 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 10/24/2017 DAFNE FRAIRE SHAKIRA Ot Z00.00 ENCNTR FOR GENERAL ADULT MEDICAL EXAM W10/24/2017 DAFNE FRAIRE SHAKIRA Ot Z51.81 ENCOUNTER FOR THERAPEUTIC DRUG LEVEL MON 10/24/2017 ROSANGELA MAYORGA DOI Ot Z79.899 OTHER NURSING HOME (CURRENT) DRUG THERAPY 10/24/2017 RJ MATAMOROS, SUHA [...] ENCNTR FOR GENERAL ADULT MEDICAL EXAM W/ 10/24/2017 Ot 327.23 OBSTRUCTIVE SLEEP APNEA (ADULT) (PEDIATR 10/24/2017 Ot 401.9 HYPERTENSION NOS 10/24/2017 Ot 496 CH[address] AIRWAY OBSTRUCT NEC 10/25/2017 Ot 496 CHR AIRWAY OBSTRUCT NEC 10/25/2017 RJ MATAMOROS, SUHA Phan Ot 272.4 HYPERLIPIDEMIA NEC/NOS 10/25/2017 BREONNA MATAMOROS, YASMINE S Ot 453.40 ACUTE VENOUS EMBOLISM THROMBOSIS UNSP 10/25/2017 DAFNE FRAIRE SHAKIRA Ot 272.0 PURE HYPERCHOLESTEROLEM 10/25/2017 DAFNE FRAIRE SHAKIRA Ot 345.90 EPILEPSY UNSPEC W/O MENTION INTRACTABLE 10/25/2017 DAFNE FRAIRE SHAKIRA Ot 401.1 BENIGN HYPERTENSION 10/25/2017 SHAKIRA MAYORGA DO Ot [address] OBSTRUCT NEC 10/25/2017 SHAKIRA MAYORGA DO Ot V58.61 ANTICOAGULANTS,LT,CURRENT USE 10/25/2017 BREONNA MATAMOROS, YASMINE S Ot 453.40 ACUTE VENOUS EMBOLISM THROMBOSIS UNSP 10/25/2017 BREONNA MATAMOROS, YASMINE S Ot 453.40 ACUTE VENOUS EMBOLISM THROMBOSIS UNSP 10/25/2017 RJ MATAMOROS, SUHA Phan Ot 327.23 OBSTRUCTIVE SLEEP APNEA (ADULT) (PEDIATR 10/25/2017 RJ MATAMOROS, SUHA Phan Ot 401.9 HYPERTENSION NOS 10/25/2017 RJ MATAMOROS, SUHA Phan Ot 496 [address] AIRWAY OBSTRUCT NEC 10/25/2017 SUHA DE LA ROSA MD Ot 786.09 RESPIRATORY ABNORM NEC 10/25/2017 BREONNA MATAMOROS, YASMINE S Ot 453.40 ACUTE VENOUS EMBOLISM THROMBOSIS UNSP 10/25/2017 SHAKIRA MAYORGA DO Ot 272.0 PURE HYPERCHOLESTEROLEM 10/25/2017 DAFNE FRAIRE SHAKIRA Ot 345.90 EPILEPSY UNSPEC W/O MENTION INTRACTABLE 10/25/2017 DAFNE FRAIRE SHAKIRA Ot 401.1 BENIGN HYPERTENSION 10/25/2017 SHAKIRA MAYORGA DO Ot 429.3 CARDIOMEGALY 10/25/2017 DAFNE FRAIRE SHAKIRA Ot 453.40 ACUTE VENOUS EMBOLISM THROMBOSIS UNSP 10/25/2017 DAFNE FRARIE SHAKIRA Ot 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 10/25/2017 DAFNE FRAIRE SHAKIRA Ot 496 [address] AIRW[address] OBSTRUCT NEC 10/25/2017 MAYORGA DO, SHAKIRA Ot 706.2 SEBACEOUS CYST 10/25/2017 ROSANGELA MAYORGA DOI Ot 729.5 PAIN IN LIMB 10/25/2017 ROSANGELA MAYORGA DOI Ot 782.3 EDEMA 10/25/2017 DAFNE FRAIRE SHAKIRA Ot V58.61 ANTICOAGULANTS,LT,CURRENT USE 10/25/2017 DAFNE FRAIRE SHAKIRA Ot V58.83 ENCOUNTER FOR THERAPEUTIC DRUG MONITORIN 10/25/2017 DAFNE FRAIRE SHAKIRA Ot V70.0 ROUTINE MEDICAL EXAM 10/25/2017 YASMINE RAVI MD S Ot 453.40 ACUTE VENOUS EMBOLISM THROMBOSIS UNSP 10/25/2017 Ot 327.23 OBSTRUCTIVE SLEEP APNEA (ADULT) (PEDIATR 10/25/2017 Ot 401.9 HYPERTENSION NOS 10/25/2017 Ot [address] AIRWAY OBSTRUCT NEC 10/25/2017 YASMINE RAVI MD S Ot 453.40 ACUTE VENOUS EMBOLISM THROMBOSIS UNSP 10/25/2017 YASMINE RAVI MD S Ot 453.40 ACUTE VENOUS EMBOLISM THROMBOSIS UNSP 10/25/2017 DAFNE FRAIRE SHAKIRA Ot 272.0 PURE HYPERCHOLESTEROLEM 10/25/2017 DAFNE FRAIRE SHAKIRA Ot 401.1 BENIGN HYPERTENSION 10/25/2017 ROSANGELA MAYORGA DOI Ot 496 [address] AIRWAY OBSTRUCT NEC 10/25/2017 SHAKIRA MAYORGA DO Ot V58.69 OTH MED,LT,CURRENT USE 10/25/2017 ROSANGELA MAYORGA DOI Ot V58.83 ENCOUNTER FOR THERAPEUTIC DRUG MONITORIN 10/25/2017 ROSANGELA MAYORGA DOI Ot V70.0 ROUTINE MEDICAL EXAM 10/25/2017 SUHA DE LA ROSA MD Ot 327.23 OBSTRUCTIVE SLEEP APNEA (ADULT) (PEDIATR 10/25/2017 SUHA DE LA ROSA MD Ot 401.9 HYPERTENSION NOS 10/25/2017 SUHA DE LA ROSA MD Ot 429.3 CARDIOMEGALY 10/25/2017 SUHA DE LA ROSA MD Ot 786.09 RESPIRATORY ABNORM NEC 10/25/2017 YASMINE RAVI MD S Ot 493.20 CHRONIC OBSTRUCTIVE ASTHMA, NOS 10/25/2017 DAFNE FRAIRE SHAKIRA Ot V01.1 TUBERCULOSIS CONTACT 10/25/2017 DAFNE FRIARE SHAKIRA Ot 272.0 PURE HYPERCHOLESTEROLEM 10/25/2017 DAFNE FRAIRE SHAKIRA Ot 401.1 BENIGN HYPERTENSION 10/25/2017 SHAKIRA MAYORGA DO Ot 429.3 CARDIOMEGALY 10/25/2017 DAFNE FRAIRE SHAKIRA Ot 453.40 ACUTE VENOUS EMBOLISM THROMBOSIS UNSP 10/25/2017 DAFNE FRAIRE SHAKIRA Ot 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 10/25/2017 ROSANGELA MAYORGA DOI Ot [address] OBSTRUCT NEC 10/25/2017 DAFNE FRAIRE SHAKIRA Ot 729.5 PAIN IN LIMB 10/25/2017 SHAKIRA MAYORGA DO Ot 780.39 OTHER CONVULSIONS 10/25/2017 ROSANGELA MAYORGA DOI Ot 782.3 EDEMA 10/25/2017 DAFNE FRAIRE SHAKIRA Ot V15.82 HISTORY OF TOBACCO USE 10/25/2017 ROSANGELA MAYORGA DOI Ot V58.69 OT MED,LT,CURRENT USE 10/25/2017 ROSANGELA MAYORGA DOI Ot V70.0 ROUTINE MEDICAL EXAM 10/25/2017 SHAKIRA MAYORGA DO Ot E78.0 PURE HYPERCHOLESTEROLEMIA 10/25/2017 SHAKIRA MAYORGA DO Ot 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 10/25/2017 ROSANGELA MAYORGA DOI Ot Z00.00 ENCNTR FOR GENERAL ADULT MEDICAL EXAM W10/25/2017 DAFNE FRAIRE SHAKIRA Ot Z51.81 ENCOUNTER FOR THERAPEUTIC DRUG LEVEL MON 10/25/2017 ROSANGELA MAYORGA DOI Ot Z79.899 OTHER NURSING HOME (CURRENT) DRUG THERAPY 10/25/2017 KASIA CABA Ot E78.2 MIXED HYPERLIPIDEMIA 10/25/2017 SHAKIRA MAYORGA DO Ot E78.00 PURE HYPERCHOLESTEROLEMIA, UNSPECIFIED 10/25/2017 SHAKIRA MAYORGA DO Ot 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 10/25/2017 DAFNE FRAIRE SHAKIRA Ot Z00.00 ENCNTR FOR GENERAL ADULT MEDICAL EXAM W10/25/2017 ROSANGELA MAYORGA DOI Ot Z51.81 ENCOUNTER FOR THERAPEUTIC DRUG LEVEL MON 10/25/2017 ROSANGELA MAYORGA DOI Ot Z79.899 OTHER [employer] MANAGER (CURRENT) DRUG THERAPY 10/25/2017 SUHA DE LA ROSA MD Ot G47.33 OBSTRUCTIVE SLEEP APNEA (ADULT) (PEDIATR 10/25/2017 SUHA DE LA ROSA MD Ot I10 ESSENTIAL (PRIMARY) HYPERTENSION 10/25/2017 SUHA DE LA ROSA MD Ot I47.2 VENTRICULAR TACHYCARDIA 10/25/2017 RJ MATAMOROS, SUHA Phan Ot R06.02 SHORTNESS OF BREATH 10/25/2017 RJ MATAMOROS, SUHA Phan Ot R07.89 OTHER CHEST PAIN 10/25/2017 SHAKIRA MAYORGA DO Ot 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 10/25/2017 SHAKIRA MAYORGA DO Ot Z51.81 ENCOUNTER FOR THERAPEUTIC DRUG LEVEL MON 10/25/2017 SHAKIRA MAYORGA DO Ot E78.00 PURE HYPERCHOLESTEROLEMIA, UNSPECIFIED 10/25/2017 MAYORGASHAKIRA MINAYA DO Ot 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 10/25/2017 SHAKIRA MAYORGA DO Ot Z00.00 ENCNTR FOR GENERAL ADULT MEDICAL EXAM W/ 10/25/2017 Ot [address] OBSTRUCT NEC 10/25/2017 SUHA DE LA ROSA MD Ot 272.4 HYPERLIPIDEMIA NEC/NOS 10/25/2017 BREONNA MATAMOROS, YASMINE S Ot 453.40 ACUTE VENOUS EMBOLISM THROMBOSIS UNSP 10/25/2017 SHAKIRA MAYORGA DO Ot 272.0 PURE HYPERCHOLESTEROLEM 10/25/2017 DAFNE FRAIRE SHAKIRA Ot 345.90 EPILEPSY UNSPEC W/O MENTION INTRACTABLE 10/25/2017 SHAKIRA MAYORGA DO Ot 401.1 BENIGN HYPERTENSION 10/25/2017 SHAKIRA MAYORGA DO Ot [address] OBSTRUCT NEC 10/25/2017 SHAKIRA MAYORGA DO Ot V58.61 ANTICOAGULANTS,LT,CURRENT USE 10/25/2017 BREONNA MATAMOROS, YASMINE S Ot 453.40 ACUTE VENOUS EMBOLISM THROMBOSIS UNSP 10/25/2017 BREONNA MATAMOROS, YASMINE S Ot 453.40 ACUTE VENOUS EMBOLISM THROMBOSIS UNSP 10/25/2017 SUHA DE LA ROSA MD Ot 327.23 OBSTRUCTIVE SLEEP APNEA (ADULT) (PEDIATR 10/25/2017 SUHA DE LA ROSA MD Ot 401.9 HYPERTENSION NOS 10/25/2017 SUHA DE LA ROSA MD Ot 496 [address] AIRWAY OBSTRUCT NEC 10/25/2017 SUHA DE LA ROSA MD Ot 786.09 RESPIRATORY ABNORM NEC 10/25/2017 BREONNA MATAMOROS, YASMINE S Ot 453.40 ACUTE VENOUS EMBOLISM THROMBOSIS UNSP 10/25/2017 ROSANGELA MAYORGA DOI Ot 272.0 PURE HYPERCHOLESTEROLEM 10/25/2017 DAFNE FRAIRE SHAKIRA Ot 345.90 EPILEPSY UNSPEC W/O MENTION INTRACTABLE 10/25/2017 MAYORGA DO, SHAKIRA Ot 401.1 BENIGN HYPERTENSION 10/25/2017 DAFNE FRAIRE SHAKIRA Ot 429.3 CARDIOMEGALY 10/25/2017 ROSANGELA MAYORGA DOI Ot 453.40 ACUTE VENOUS EMBOLISM THROMBOSIS UNSP 10/25/2017 DAFNE FRAIRE SHAKIRA Ot 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 10/25/2017 DAFNE FRAIRE SHAKIRA Ot [address] AIRWAY OBSTRUCT NEC 10/25/2017 DAFNE FRAIRE SHAKIRA Ot 706.2 SEBACEOUS CYST 10/25/2017 DAFNE FRAIRE SHAKIRA Ot 729.5 PAIN IN LIMB 10/25/2017 DAFNE FRAIRE SHAKIRA Ot 782.3 EDEMA 10/25/2017 ROSANGELA MAYORGA DOI Ot V58.61 ANTICOAGULANTS,LT,CURRENT USE 10/25/2017 DAFNE FRAIRE SHAKIRA Ot V58.83 ENCOUNTER FOR THERAPEUTIC DRUG MONITORIN 10/25/2017 DAFNE FRAIRE SHAKIRA Ot V70.0 ROUTINE MEDICAL EXAM 10/25/2017 BREONNA MATAMOROS, YASMINE S Ot 453.40 ACUTE VENOUS EMBOLISM THROMBOSIS UNSP 10/25/2017 Ot 327.23 OBSTRUCTIVE SLEEP APNEA (ADULT) (PEDIATR 10/25/2017 Ot 401.9 HYPERTENSION NOS 10/25/2017 Ot [address] OBSTRUCT NEC 10/25/2017 BREONNA MATAMOROS, YASMINE S Ot 453.40 ACUTE VENOUS EMBOLISM THROMBOSIS UNSP 10/25/2017 BREONNA MATAMOROS, YASMINE S Ot 453.40 ACUTE VENOUS EMBOLISM THROMBOSIS UNSP 10/25/2017 DAFNE FRAIRE SHAKIRA Ot 272.0 PURE HYPERCHOLESTEROLEM 10/25/2017 SHAKIRA MAYORGA DO Ot 401.1 BENIGN HYPERTENSION 10/25/2017 SHAKIRA MAYORGA DO Ot 496 [address] AIRWAY OBSTRUCT NEC 10/25/2017 SHAKIRA MAYORGA DO Ot V58.69 OTH MED,LT,CURRENT USE 10/25/2017 ROSANGELA MAYORGA DOI Ot V58.83 ENCOUNTER FOR THERAPEUTIC DRUG MONITORIN 10/25/2017 SHAKIRA MAYORGA DO Ot V70.0 ROUTINE MEDICAL EXAM 10/25/2017 SUHA DE LA ROSA MD Ot 327.23 OBSTRUCTIVE SLEEP APNEA (ADULT) (PEDIATR 10/25/2017 SUHA DE LA ROSA MD Ot 401.9 HYPERTENSION NOS 10/25/2017 SUHA DE LA ROSA MD Ot 429.3 CARDIOMEGALY 10/25/2017 RJ MATAMOROS, SUHA Phan Ot 786.09 RESPIRATORY ABNORM NEC 10/25/2017 BREONNA MATAMOROS, YASMINE S Ot 493.20 CHRONIC OBSTRUCTIVE ASTHMA, NOS 10/25/2017 SHAKIRA MAYORGA DO Ot V01.1 TUBERCULOSIS CONTACT 10/25/2017 SHAKIRA MAYORGA DO Ot 272.0 PURE HYPERCHOLESTEROLEM 10/25/2017 SHAKIRA MAYORGA DO Ot 401.1 BENIGN HYPERTENSION 10/25/2017 SHAKIRA MAYORGA DO Ot 429.3 CARDIOMEGALY 10/25/2017 SHAKIRA MAYORGA DO Ot 453.40 ACUTE VENOUS EMBOLISM THROMBOSIS UNSP 10/25/2017 DAFNE FRAIRE SHAKIRA Ot 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 10/25/2017 SHAKIRA MAYORGA DO Ot 496 [address] AIRWAY OBSTRUCT NEC 10/25/2017 SHAKIRA MAYORGA DO Ot 729.5 PAIN IN LIMB 10/25/2017 SHAKIRA MAYORGA DO Ot 780.39 OTHER CONVULSIONS 10/25/2017 SHAKIRA MAYORGA DO Ot 782.3 EDEMA 10/25/2017 SHAKIRA MAYORGA DO Ot V15.82 HISTORY OF TOBACCO USE 10/25/2017 SHAKIRA MAYORGA DO Ot V58.69 OTH MED,LT,CURRENT USE 10/25/2017 SHAKIRA MAYORGA DO Ot V70.0 ROUTINE MEDICAL EXAM 10/25/2017 SHAKIRA MAYORGA DO Ot E78.0 PURE HYPERCHOLESTEROLEMIA 10/25/2017 SHAKIRA MAYORGA DO Ot 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 10/25/2017 SHAKIRA MAYORGA DO Ot Z00.00 ENCNTR FOR GENERAL ADULT MEDICAL EXAM W10/25/2017 SHAKIRA MAYORGA DO Ot Z51.81 ENCOUNTER FOR THERAPEUTIC DRUG LEVEL MON 10/25/2017 SHAKIRA MAYORGA DO Ot Z79.899 OTHER [employer] MANAGER (CURRENT) DRUG THERAPY 10/25/2017 JAMIN VACA, KASIA Flynn Ot E78.2 MIXED HYPERLIPIDEMIA 10/25/2017 SHAKIRA MAYORGA DO Ot E78.00 PURE HYPERCHOLESTEROLEMIA, UNSPECIFIED 10/25/2017 SHAKIRA MAYORGA DO Ot 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 10/25/2017 SHAKIRA MAYORGA DO Ot Z00.00 ENCNTR FOR GENERAL ADULT MEDICAL EXAM W10/25/2017 SHAKIRA MAYORGA DO Ot Z51.81 ENCOUNTER FOR THERAPEUTIC DRUG LEVEL MON 10/25/2017 SHAKIRA MAYORGA DO Ot Z79.899 OTHER N[employer] MANAGER (CURRENT) DRUG THERAPY 10/25/2017 SUHA DE LA ROSA MD Ot G47.33 OBSTRUCTIVE SLEEP APNEA (ADULT) (PEDIATR 10/25/2017 SUHA DE LA ROSA MD Ot I10 ESSENTIAL (PRIMARY) HYPERTENSION 10/25/2017 SUHA DE LA ROSA MD Ot I47.2 VENTRICULAR TACHYCARDIA 10/25/2017 SUHA DE LA ROSA MD Ot R06.02 SHORTNESS OF BREATH 10/25/2017 SUHA DE LA ROSA MD Ot R07.89 OTHER CHEST PAIN 10/25/2017 SHAKIRA MAYORGA DO Ot 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 10/25/2017 SHAKIRA MAYORGA DO Ot Z51.81 ENCOUNTER FOR THERAPEUTIC DRUG LEVEL MON 10/25/2017 SHAKIRA MAYORGA DO Ot E78.00 PURE HYPERCHOLESTEROLEMIA, UNSPECIFIED 10/25/2017 SHAKIRA MAYORGA DO Ot 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 10/25/2017 SHAKIRA MAYORGA DO Ot Z00.00 ENCNTR FOR GENERAL ADULT MEDICAL EXAM W/ Procedures Code [place] [address] PSYCH DIAGNOSTIC EVALUATION 11/06/2013 80597 PSYTX PT&/FAMILY 45 MINUTES 12/08/2013 94760 PSYTX PT&/FAMILY 45 MINUTES 12/25/2013 81389 PSYTX PT&/FAMILY 45 MINUTES 01/19/2014 05303 PSYTX PT&/FAMILY 45 MINUTES 01/28/2014 52005 PSYTX PT&/FAMILY 45 MINUTES 02/18/2014 41653 PSYTX PT&/FAMILY 45 MINUTES 03/18/2014 60638 PSYTX PT&/FAMILY 45 MINUTES 04/08/2014 19093 PSYTX PT&/FAMILY 45 MINUTES 04/29/2014 77394 PSYTX PT&/FAMILY 45 MINUTES 05/20/2014 07350 PSYTX PT&/FAMILY 45 MINUTES 06/09/2014 05841 PSYTX PT&/FAMILY 45 MINUTES 07/12/2014 67531 PSYTX PT&/FAMILY 45 MINUTES 08/04/2014 40087 PSYTX PT&/FAMILY 45 MINUTES 08/26/2014 08765 PSYTX PT&/FAMILY 45 MINUTES 10/13/2014 Results Test [...] Status Pt. Type Provider Facility Loc./Unit Complaint [id number] 10/13/2014 07:54:00 10/13/2014 23:59:59 [facility] Outpatient JESSICA MARTELL PHD [id number] 08/25/2014 09:50:00 08/25/2014 23:59:59 [facility] Out[facility] JESSICA MARTELL PHD [id number] 08/04/2014 07:58:00 08/04/2014 23:59:59 [facility] Outpatient ASIA MALAVE PHD [id number] 07/12/2014 08:54:00 07/12/2014 23:59:59 [facility] Outpatient ASIA MALAVE PHD [id number] 06/09/2014 09:04:00 06/09/2014 23:59:59 [facility] Outpatient ASIA MALAVE PHD [id number] 05/20/2014 07:53:00 05/20/2014 23:59:59 [facility] Outpatient ASIA MALAVE PHD [id number] 04/29/2014 07:58:00 04/29/2014 23:59:59 [facility] Outpatient ASIA MALAVE PHD [id number] 04/08/2014 08:00:00 04/08/2014 23:59:59 [facility] Outpatient ASIA MALAVE PHD [id number] 03/18/2014 07:57:00 03/18/2014 23:59:59 [facility] Outpatient ASIA MALAVE PHD [id number] 02/18/2014 07:58:00 02/18/2014 23:59:59 [facility] Outpatient ASIA MALAVE PHD [id number] 01/28/2014 07:55:00 01/28/2014 23:59:59 [facility] Outpatient ASIA MALAVE PHD [id number] 01/14/2014 07:52:00 01/14/2014 23:59:59 [facility] Outpatient ASIA MALAVE PHD [id number] 12/25/2013 15:54:00 12/25/2013 23:59:59 [facility] Outpatient ASIA MALAVE PHD [id number] 12/08/2013 14:51:00 12/08/2013 23:59:59 [facility] Outpatient ASIA MALAVE PHD [id number] 11/06/2013 12:47:00 11/06/2013 23:59:59 [facility] Outpatient ASIA MALAVE PHD [id number] 10/01/2017 08:00:00 10/01/2017 23:59:59 C[facility] Outpatient Shakira Mayorga [facility] [id number] 09/05/2017 10:13:00 09/05/2017 23:59:59 CLS Outpatient MAYORGA DO, SHAKIRA [facility] LAB E78.0,E78.4,Z00.00 [id number] 06/04/2017 09:06:00 06/04/2017 23:59:59 CLS Outpatient SUHA DE LA ROSA MD [facility] CHEST PAIN SYNDROME,HTN, PAULIE,SOB,VENTRICULAR TACHY [id number] 05/07/2017 15:45:00 05/07/2017 23:59:59 CLS Preadmit SUHA DE LA ROSA MD [facility] HTN I10 [id number] 02/27/2017 06:39:00 02/27/2017 23:59:59 CLS Outpatient MAYORGA DO, SHAKIRA [facility] LAB ROUTINE LABS [id number] 01/16/2017 17:21:00 01/19/2017 13:45:00 DIS Inpatient MAYORGA DO, SHAKIRA [facility] 4TH SEPSIS,HYPOXIA [id number] 08/23/2016 07:46:00 08/23/2016 23:59:59 CLS Outpatient MAYORGA DO, SHAKIRA [facility] LAB Z00.00 [id number] 08/23/2016 07:40:00 08/23/2016 23:59:59 CLS Outpatient KASIA ACBA [facility] LAB HYPERLIPIDEMIA [id number] 03/01/2016 07:44:00 03/01/2016 23:59:59 CLS Outpatient MAYORGA DO, SHAKIRA [facility] LAB HYPERGLYCERIDEMIA [id number] 01/28/2015 07:35:00 01/28/2015 23:59:59 CLS Outpatient MAYORGA DO, SHAKIRA [facility] LAB HEALTH SCREENING,HTN, SEIZURE DISORDER [id number] 12/02/2014 11:03:00 12/02/2014 23:59:59 CLS Outpatient MAYORGA DO, SHAKIRA [facility] LAB EXPOSURE TO TUBERCULOSIS [id number] 08/16/2014 07:48:00 08/16/2014 23:59:59 CLS Outpatient SUHA DE LA ROSA MD [facility] CARD HTN,LVH,PAULIE [id number] 08/09/2014 13:45:00 08/09/2014 23:59:59 CLS Outpatient YASMINE RAVI MD [facility] RT ASHTMA COPD [id number] 07/23/2014 08:00:00 07/23/2014 23:59:59 CLS Outpatient SHAKIRA MAYORGA DO [facility] LAB COPD,HEALTH SCREENING [id number] 06/14/2014 10:06:00 06/14/2014 23:59:59 CLS Outpatient YASMINE RAVI MD [facility] LAB DEEP VENOUS THROMBOSIS [id number] 04/19/2014 08:51:00 04/19/2014 23:59:59 CLS Outpatient YASMINE RAVI MD [facility] LAB DVT [id number] 12/01/2013 08:04:00 03/01/2014 00:01:00 DIS Outpatient SUHA DE LA ROSA MD [facility] CARD COPD,DYSPNEA,HTN [id number] 02/09/2014 08:15:00 02/09/2014 23:59:59 CLS Outpatient YASMINE RAVI MD [facility] LAB DVT [id number] 01/01/2014 07:42:00 01/01/2014 23:59:59 CLS Outpatient SHAKIRA MAYORGA DO [facility] LAB CYST,HPERTENSION,EDEMA LEG [id number] 12/03/2013 12:56:00 12/03/2013 23:59:59 CLS Outpatient SUHA DE LA ROSA MD [facility] CARD COPD,DYSPNEA,HTN [id number] 11/30/2013 08:50:00 11/30/2013 23:59:59 CLS Outpatient YASMINE RAVI MD [facility] LAB DVT [id number] 11/10/2013 21:01:00 11/11/2013 06:20:00 DIS Outpatient HENRIQUE TERRAZASP [facility] SLEEP EXCESSIVE DAYTIME TIREDNES,SNORING [id number] 10/05/2013 10:55:00 10/05/2013 23:59:59 CLS Outpatient YASMINE RAVI MD [facility] LAB DVT [id number] 08/14/2013 09:25:00 08/14/2013 23:59:59 CLS Outpatient YASMINE RAVI MD [facility] LAB DVT [id number] 06/30/2013 09:34:00 06/30/2013 23:59:59 CLS Outpatient SHAKIRA MAYORGA DO [facility] LAB SIEZURE DISORDER,EDEMA, BACK PAIN,HYPERTENSION [id number] 06/16/2013 09:30:00 06/16/2013 23:59:59 CLS Outpatient YASMINE RAVI MD [facility] LAB DVT [id number] 05/14/2013 09:03:00 05/25/2013 10:45:00 DIS Outpatient YASMINE RAVI MD [facility] COUMADIN THERAPY [id number] 02/09/2013 08:10:00 02/15/2013 00:01:00 DIS Outpatient YASMINE RAVI MD [facility] LAB COUMADIN THERAPY [id number] 02/09/2013 07:52:00 02/09/2013 23:59:59 CLS Outpatient SUHA DE LA ROSA MD [facility] LAB HYPERLIPIDEMIA [id number] 10/24/2017 17:55:00 ACT Inpatient SHAKIRA MAYORGA DO [facility] 4TH ABDOMINAL PAIN;FEVER [id number] 03/02/2014 08:30:00 Document Registration [id number] 10/08/2012 08:14:00 Document Registration [id number] 09/22/2012 12:59:00 Document Registration [id number] 02/07/2012 07:53:00 Document Registration [id number] 01/30/2012 08:29:00 Document Registration [id number] 01/30/2012 08:25:00 Document Registration [id number] 11/05/2011 08:11:00 Document Registration [id number] 09/05/2011 08:25:00 Document Registration [id number] 08/08/2011 08:21:00 Document Registration [id number] 05/24/2011 00:00:00 Document Registration [id number] 05/17/2011 12:52:00 Document Registration [id number] 02/26/2011 08:44:00 Document Registration [id number] 04/21/2008 00:00:00 Document Registration [id number] 06/10/2017 09:14:00 09/10/2017 12:00:00 DIS Outpatient Benoit Desouza [id number] 06/03/2017 13:27:00 06/03/2017 23:59:00 DIS Outpatient Benoit Desouza [id number] 01/28/2015 07:37:12 ACT Document Registration
[2017-11-25] MEDS ORDERED: DOCU-143 PO (11:08)
[2017-11-25] MEDS ORDERED: ACHD5005 PO (11:08)
== END 2017-10-26 14:10 | disposition home or self-care (01) | DRG 440 ==
LOC: EDSTATUS 11:04 → 4TH 17:55 → OBSVTOIN 17:55 → INTOOBSV 17:55 → UNDOADMOB 17:55 → 4TH 17:55 → UNDODISIN 10-26 14:10
PROVIDERS: ADMIT Internal Medicine; ATTEND Internal Medicine
DX: K85.90 Acute pancreatitis without necrosis or infection, unspecified (principal); J44.9 Chronic obstructive pulmonary disease, unspecified; J45.909 Unspecified asthma, uncomplicated; I10 Essential (primary) hypertension; E78.00 Pure hypercholesterolemia, unspecified; G47.33 Obstructive sleep apnea (adult) (pediatric); G40.909 Epilepsy, unspecified, not intractable, without status epilepticus; K21.9 Gastro-esophageal reflux disease without esophagitis; M19.91 Primary osteoarthritis, unspecified site; Z86.718 Personal history of other venous thrombosis and embolism; Z87.891 Personal history of nicotine dependence
CPT/HCPCS: 36415; 71046; 74177; 76700; 80053; 80074; 81000; 82150; 83605; 83690; 84484; 85007; 85025; 85027; 85652; 87040; 94640; 94760

== ENCOUNTER → 2017-11-08 | Outpatient (CLI) | payer OTHER, MEDICARE ==
[~2017-11-08] MED LIST changes: +ACHD5005 PO; +AMOX-358 PO; +CATHETER FLUSH 10 ML SYR IV PRN; +DOCU-143 PO; +FLUT16SP22 NS; +ROFL500T4 PO
--- NOTE | 2017-11-08 12:11 | Diagnostic Imaging Report ---
Indication: Abdominal pain. Findings: The patient was a administered 5.5 mCi technetium 99m Choletec and imaging over the abdomen was performed. At 45 minutes the patient ingested 8 ounces of Ensure Plus and gallbladder ejection fraction was calculated. There is homogeneous uptake of activity by the liver with prompt excretion of activity into the common duct and gallbladder. Normal passage of activity into the small bowel is seen. Gallbladder ejection fraction is slightly low at 31%. Normalized at 35% or greater. Impression: 1. No evidence of cystic duct or common bile duct obstruction. 2. Slightly low gallbladder ejection fraction of 31%. Dictated by: Dictated on workstation # [id number]
== END ==
LOC: CARD 11-01 09:05
PROVIDERS: ATTEND Internal Medicine
DX: K81.9 Cholecystitis, unspecified (principal)
CPT/HCPCS: 78227

== ENCOUNTER 2017-11-21 05:40 | Outpatient (CLI) | payer OTHER, MEDICARE ==
[~2017-11-21] VITALS: Ht 172.7 cm; Wt 97.1 kg
[~2017-11-21 05:40] MED LIST changes: -ACHD5005 PO; -CATHETER FLUSH 10 ML SYR IV PRN; -DOCU-143 PO
== END 2017-11-21 12:04 ==
LOC: PREOP 05:40
PROVIDERS: ATTEND Surgery
DX: Z01.818 Encounter for other preprocedural examination (principal)

== ENCOUNTER 2017-11-25 08:22 | Day surgery (SDC) | payer MEDICARE, OTHER ==
[~2017-11-25] VITALS: Ht 172.7 cm; Wt 97.1 kg
[2017-11-25] MEDS ORDERED: LIDOCAINE 1% INJ 20 ML 20 ML VIAL ONE (08:37)
[2017-11-25] MEDS ORDERED: BUPIVACAINE 0.5% 30 ML (SENSORCAINE) VIAL ONE (08:37)
[2017-11-25] MEDS ORDERED: ceFAZolin 2 GM IV Premixed 50 ML IV ONE (08:45)
[2017-11-25] MEDS ORDERED: FAMOTIDINE 20MG/2ML IV (PEPCID) ONE (08:51)
[2017-11-25] MEDS: LACTATED RINGERS 1,000 ML IV PRN ×2 (09:00→10:22)
[2017-11-25 09:05] VITALS: BP 143/78
[2017-11-25] MEDS ORDERED: ROCURONIUM 10 MG/ML 5 ML SYRINGE IV ONE (09:13)
[2017-11-25] MEDS ORDERED: proPOfol 200 MG/20 ML (DIPRIVAN) VIAL IV ONE (09:13)
[2017-11-25] MEDS ORDERED: LACTATED RINGERS 0 ML IV ONE (09:13)
[2017-11-25] MEDS ORDERED: ONDANSETRON 4 MG/2 ML (SDV) Z0FRAN ONE (09:13)
[2017-11-25] MEDS ORDERED: LIDOCAINE PF 2% 5 ML (XYLOCAINE) VIAL ONE (09:13)
[2017-11-25] MEDS ORDERED: MIDAZOLAM 2 MG/2 ML (VERSED) VIAL ONE (09:14)
[2017-11-25] MEDS ORDERED: fentaNYL INJECTION 100 MCG/2 ML AMP ONE ×2 (09:14→11:01)
--- NOTE | 2017-11-25 09:50 | Progress Note-Pre Operative ---
Pre-Operative Progress Note H&P Reviewed The H&P was reviewed, patient examined and no changes noted. Date Seen by Provider: November 25, 2017 Time Seen by Provider: 09:50 Date H&P Reviewed: November 25, 2017 Time H&P Reviewed: 09:50 Pre-Operative Diagnosis: biliary dyskinesia SCARLET WETZEL DO November 25, 2017 09:50
[2017-11-25] MEDS ORDERED: ROPIVACAINE 5MG/ML 30ML VIAL ONE (10:50)
[2017-11-25] MEDS ORDERED: SEVOFLURANE (ULTANE) 15 ML INHAL SOLN ONE ×2 (10:50→11:42)
--- NOTE | 2017-11-25 11:07 | Progress Note-Post Operative ---
Post-Operative Progess Note Surgeon (s)/Sccm Administrator (s) Surgeon SCARLET WETZEL DO Sccm Administrator: Dr. Sales Pre-Operative Diagnosis biliary dyskinesia Post-Operative Diagnosis same Procedure & Operative Findings Date of Procedure 11/25/17 Procedure Performed/Findings lap kamryn c ioc Anesthesia Type general Estimated Blood Loss Estimated blood loss (mL): minimal Specimens/Packing Specimens Removed gallbladder SCARLET WETZEL DO November 25, 2017 11:07
[2017-11-25] MEDS ORDERED: DOCU-143 PO (11:08)
[2017-11-25] MEDS ORDERED: ACHD5005 PO (11:08)
--- NOTE | 2017-11-25 11:10 | Discharge Inst-Simple/Standard ---
Discharge Inst-Standard Discharge Medications New, Converted or Re-Newed RX: RX on Chart Patient Instructions/Follow Up Plan of Care/Instructions/FU: 2 weeks Fabian Activity as Tolerated: No Discharge Diet: Regular Diet Other Inst to Patient Follow up Appt: Make appointment for 2 weeks. Instructions: No lifting greater than 10 pounds. No strenuous activity. May shower in 24 hours, no tub bath or soaking. Use incentive spirometer at home as directed. No Smoking Skin/Wound Care: You have special glue over incisions it will fall off on its own. Symptoms to Report: Appetite Changes, Extremity Discoloration, Numbness/Tingling, Swelling Increased , Bleeding Excessive, Eyesight Changes, Pain Increased, Urine Color Change, Constipation(Persistent), Fever over 101 degree F, Pain/Pressure in chest, Urinating Difficulty, Cough Up/Vomit Blood, Heart Beat Irreg/Pounding, Pain/ Pressure in jaw, Vaginal Bleeding Increase, Cramps in feet or legs, Lightheadedness, Pain/Pressure in shoulder, Diarrhea(Persistent), Memory Changes Suddenly, Questions/Concerns, Weight gain consecutive days, Dizziness/ Fainting, Nausea/Vomiting, Shortness of Breath, Weight gain over 2 pounds. If eyes or skin turn yellow notify physician. If questions or concerns contact your physician Or seek help at emergency department. SCARLET WETZEL DO November 25, 2017 11:10
[2017-11-25] MEDS ORDERED: MEPERIDINE (DEMEROL) INJ 50 MG/ML IVP PRN (11:30)
[2017-11-25] MEDS ORDERED: ONDANSETRON 4 MG/2 ML (SDV) Z0FRAN IVP PRN (11:30)
[2017-11-25] MEDS: fentaNYL INJECTION 100 MCG/2 ML AMP IVP PRN ×2 (11:40→11:47)
[2017-11-25 12:20] VITALS: BP 172/83
[2017-11-25] MEDS ORDERED: HYDROcodone/APAP 5 MG/325 MG (LORTAB) TAB ONE (12:22)
[2017-11-25] MEDS ORDERED: HYDROcodone/APAP 5 MG/325 MG (LORTAB) TAB PO PRN (12:30)
[2017-11-25 12:50] VITALS: BP 156/77
--- NOTE | 2017-11-25 12:53 | Anesthesia-General Post-Op ---
General Patient Condition Mental Status/LOC: Same as Preop Cardiovascular: Satisfactory Nausea/Vomiting: Absent Respiratory: Satisfactory Pain: Controlled Complications: Absent Post Op Complications Complications None Follow Up Care/Instructions Patient Instructions None needed. Anesthesia/Patient Condition Patient Condition Patient is doing well, no complaints, stable vital signs, no apparent adverse anesthesia problems. No complications reported per nursing. FILEMON OCASIO CRNA November 25, 2017 12:53
[2017-11-25 13:20] VITALS: BP 151/80
--- NOTE | 2017-11-25 13:45 | Diagnostic Imaging Report ---
INDICATION: Intraoperative cholangiogram and low gallbladder ejection fraction. FINDINGS: Fluoroscopy was provided during performance of an intraoperative cholangiogram. 13 seconds of fluoroscopy was utilized. Images demonstrate contrast being injected via the cystic duct remnant. The intrahepatic and extrahepatic bile ducts are nondilated. Contrast flows into the duodenum. IMPRESSION: Fluoroscopy for intraoperative cholangiogram. Dictated by: Dictated on workstation # [id number]
--- NOTE | 2017-11-25 16:12 | OPERATIVE REPORT ---
DATE OF SERVICE: 11/25/2017 PREOPERATIVE DIAGNOSIS: Biliary dyskinesia. POSTOPERATIVE DIAGNOSIS: Biliary dyskinesia. PROCEDURE: Laparoscopic cholecystectomy with intraoperative cholangiogram. SURGEON: Scarlet Peralta DO IMPORT/EXPORT FREIGHT FORWARDER: Dr. Sales, assisted in retraction, dissection and closure. ANESTHESIA: General. ESTIMATED BLOOD LOSS: Minimal. COMPLICATIONS: None. INDICATIONS: The patient is a 62-year-old male with epigastric abdominal pain. Further workup revealed biliary dyskinesia. The patient was explained risks and benefits of laparoscopic cholecystectomy with intraoperative cholangiogram. He understands risks and benefits and wished to proceed with procedure. Consent was signed on the chart. DESCRIPTION OF PROCEDURE: The patient was taken to the operating suite. He was prepped and draped in sterile fashion. Surgical pause was performed. Jody technique was used to enter the abdomen just above the umbilicus. The balloon trocar was inserted in the abdomen and pneumoperitoneum was achieved. Under direct visualization of the laparoscope, a 5 mm trocar was placed in the subxiphoid region and two 5 mm trocars were placed in the right upper quadrant. The gallbladder was grasped, elevated. The cystic duct and cystic artery were then dissected out. Clips were placed on the proximal and distal portion of the cystic artery and the distal portion of the cystic duct. The duct was then partially transected. The Arrow catheter was inserted into the duct and the catheter had to be held in with a clip due to the balloon not holding it. Cholangiogram was then performed. There were no filling defects. Contrast made its way into the duodenum without difficulty. The catheter was then removed. Clips were placed on the proximal portion of the cystic duct. The duct and the cystic artery were then transected. Hook cautery was used to begin dissecting the gallbladder off the gallbladder fossa. A posterior branch was encountered. A clip was placed on the proximal portion of it and this was then continued to be dissected off of the gallbladder fossa achieving hemostasis. Once removed, it was placed in an Endobag and removed through the 12 mm trocar site. Copious amount of irrigation was used to irrigate the abdomen and suction. Hemostasis was achieved. The abdomen was then desufflated and the trocars were removed. The fascial defect which had a 0 Vicryl placed in a [id number] fashion prior to insufflation was then tied. The abdomen was then washed and dried. The skin was then closed using 4-0 Monocryl in a subcuticular fashion. SwiftSet was then placed over the incisions. The patient tolerated the procedure well without any complications and taken to recovery room in stable condition. Job ID: [id number] DocumentID: [id number] Dictated Date: 11/25/2017 11:20:38 Hydraulic Controls Technician Date: 11/25/2017 16:11:44 Dictated By: SCARLET PERALTA DO
== END 2017-11-25 13:32 | disposition home or self-care (01) ==
LOC: SDC 08:22
PROVIDERS: ATTEND Surgery
DX: K81.1 Chronic cholecystitis (principal); K82.8 Other specified diseases of gallbladder; I10 Essential (primary) hypertension; G47.33 Obstructive sleep apnea (adult) (pediatric); Z87.891 Personal history of nicotine dependence; J44.9 Chronic obstructive pulmonary disease, unspecified; Z79.899 Other long term (current) drug therapy; Z11.2 Encounter for screening for other bacterial diseases; E78.5 Hyperlipidemia, unspecified; J45.909 Unspecified asthma, uncomplicated; Z86.718 Personal history of other venous thrombosis and embolism; G40.909 Epilepsy, unspecified, not intractable, without status epilepticus; K21.9 Gastro-esophageal reflux disease without esophagitis; E66.9 Obesity, unspecified; Z68.34 Body mass index [BMI] 34.0-34.9, adult
CPT/HCPCS: 87081; 88304; 94664

== ENCOUNTER 2018-03-25 08:35 | Outpatient (CLI) | payer OTHER, MEDICARE ==
[~2018-03-25] VITALS: Ht 172.7 cm; Wt 102.5 kg
[~2018-03-25 08:35] MED LIST changes: +ACHD5005 PO; -AMLO10TA2 PO; +AMLO10TA6 PO; +DOCU-143 PO
[2018-03-25 08:50] VITALS: BP 133/79
[2018-03-25 09:11] LABS: BASOPHILS % (AUTO) 0 % (0-10); EOSINOPHILS # (AUTO) 0.3 10^3/uL (0.0-0.3); EOSINOPHILS % (AUTO) 3 % (0-10); HEMATOCRIT 44 % (40-54); HEMOGLOBIN 15.1 G/DL (13.3-17.7); LYMPHOCYTES # (AUTO) 1.5 X 10^3 (1.0-4.0); LYMPHOCYTES % (AUTO) 14 % (12-44); MEAN CORPUSCULAR HEMOGLOBIN 31 PG (25-34); MEAN CORPUSCULAR HGB CONC 35 G/DL (32-36); MEAN CORPUSCULAR VOLUME 91 FL (80-99); MEAN PLATELET VOLUME 9.5 FL (7.4-10.4); MONOCYTES # (AUTO) 1.2 X 10^3 (0.0-1.0); MONOCYTES % (AUTO) 11 % (0-12); NEUTROPHILS # (AUTO) 7.7 X 10^3 (1.8-7.8); NEUTROPHILS % (AUTO) 72 % (42-75); PLATELET COUNT 290 10^3/uL (130-400); RED BLOOD COUNT 4.82 10^6/uL (4.35-5.85); RED CELL DISTRIBUTION WIDTH 12.9 % (10.0-14.5); WHITE BLOOD COUNT 10.7 10^3/uL (4.3-11.0)
== END 2018-03-25 09:05 | disposition home or self-care (01) ==
LOC: PREOP 08:35
PROVIDERS: ATTEND Otolaryngology Otolaryngology/Facial Plastic Surgery
DX: Z01.82 Encounter for allergy testing (principal); Z11.2 Encounter for screening for other bacterial diseases; J34.89 Other specified disorders of nose and nasal sinuses
CPT/HCPCS: 36415; 85025; 87081

== ENCOUNTER 2018-04-03 07:05 | Day surgery (SDC) | payer OTHER, MEDICARE ==
[~2018-04-03] VITALS: Ht 172.7 cm; Wt 102.5 kg
[2018-04-03] MEDS ORDERED: LACTATED RINGERS 1,000 ML IV PRN (07:10)
[2018-04-03 07:15] VITALS: BP 123/93
[2018-04-03] MEDS ORDERED: FAMOTIDINE 20MG/2ML IV (PEPCID) ONE (07:21)
[2018-04-03] MEDS ORDERED: MIDAZOLAM 2 MG/2 ML (VERSED) VIAL ONE (07:21)
[2018-04-03] MEDS ORDERED: MIDAZOLAM 2 MG/2 ML (VERSED) VIAL IV ONE (07:30)
[2018-04-03] MEDS ORDERED: FAMOTIDINE 20MG/2ML IV (PEPCID) IV ONE (07:30)
[2018-04-03] MEDS: LACTATED RINGERS 1,000 ML IV PRN ×2 (07:34→10:17)
[2018-04-03] MEDS ORDERED: fentaNYL INJECTION 100 MCG/2 ML AMP ONE (08:15)
[2018-04-03] MEDS ORDERED: DEXAMETHASONE 10 MG/ML (DECADRON) 1 ML VIAL ONE (08:19)
[2018-04-03] MEDS ORDERED: LIDOCAINE PF 2% 2 ML (XYLOCAINE) VIAL ONE (08:19)
[2018-04-03] MEDS ORDERED: proPOfol 200 MG/20 ML (DIPRIVAN) VIAL IV ONE (08:19)
[2018-04-03] MEDS ORDERED: SEVOFLURANE (ULTANE) 15 ML INHAL SOLN ONE ×2 (08:19→09:30)
[2018-04-03] MEDS ORDERED: ROCURONIUM 10 MG/ML 5 ML SYRINGE IV ONE (08:19)
[2018-04-03] MEDS ORDERED: ONDANSETRON 4 MG/2 ML (SDV) Z0FRAN ONE (08:19)
[2018-04-03] MEDS ORDERED: PHENYLEPHRINE 0.5% NASAL SPR (NEO-SYNEPHRINE) REG ONE (08:21)
[2018-04-03] MEDS ORDERED: LIDOCAINE/EPI 1%-1:200,000 (XYLOCAINE) 10 ML VIAL ONE (08:21)
--- NOTE | 2018-04-03 09:07 | Progress Note-Pre Operative ---
Pre-Operative Progress Note H&P Reviewed The H&P was reviewed, patient examined and no changes noted. Date Seen by Provider: Apr 03, 2018 Time Seen by Provider: 09:00 Date H&P Reviewed: Apr 03, 2018 Time H&P Reviewed: 09:00 Pre-Operative Diagnosis: Bilat Hyper of Inf Trubs with Nasal Congestion KARLA BENEDICT MD Apr 03, 2018 9:07 am
[2018-04-03] MEDS ORDERED: NEOSTIGMINE 1 MG/ML 5 ML SYRINGE ONE (09:33)
[2018-04-03] MEDS ORDERED: GLYCOPYRROLATE 0.2 MG/ML (ROBINUL) 2 ML VIAL ONE (09:33)
--- NOTE | 2018-04-03 09:40 | Progress Note-Post Operative ---
Post-Operative Progess Note Surgeon (s)/Nitroglycerin Separator Operator (s) Surgeon KARLA BENEDICT MD Nitroglycerin Separator Operator n/a Pre-Operative Diagnosis Bilat Hyper of Inf Trubs with Nasal Congestion Post-Operative Diagnosis same Post-Op Procedure Note Date of Procedure: Apr 03, 2018 Name of Procedure Performed: Bilat PAtial REduction of the INf Turbs Description & Findings Description and Findings: n/a Anesthesia Type get Estimated Blood Loss minimal Packing none. Specimen(s) collected/removed none KARLA BENEDICT MD Apr 03, 2018 9:40 am
[2018-04-03] MEDS ORDERED: NS IV 1000 ML 1,000 ML IV SCH (09:41)
[2018-04-03] MEDS ORDERED: HYDROcodone/APAP 5 MG/325 MG (LORTAB) TAB PO PRN (09:45)
[2018-04-03] MEDS ORDERED: APAP 325 MG/10.15 ML LIQ (TYLENOL) UDC PO PRN (09:45)
[2018-04-03] MEDS ORDERED: morphine INJ 10 MG/ML 1ML (SYR OR VIAL) IVP ONE (10:00)
[2018-04-03] MEDS ORDERED: ONDANSETRON 4 MG/2 ML (SDV) Z0FRAN IVP PRN (10:00)
[2018-04-03] MEDS ORDERED: HYDR-3812 PO (10:07)
[2018-04-03 10:40] VITALS: BP 148/83
[2018-04-03 11:15] VITALS: BP 121/79
[2018-04-03 11:45] VITALS: BP 124/70
--- NOTE | 2018-04-03 14:17 | Anesthesia-General Post-Op ---
General Patient Condition Mental Status/LOC: Same as Preop Cardiovascular: Satisfactory Nausea/Vomiting: Absent Respiratory: Satisfactory Pain: Controlled Complications: Absent Post Op Complications Complications None Follow Up Care/Instructions Patient Instructions None needed. Anesthesia/Patient Condition Patient Condition Patient is doing well, no complaints, stable vital signs, no apparent adverse anesthesia problems. No complications reported per nursing. FILEMON OCASIO CRNA Apr 03, 2018 14:17
== END 2018-04-03 12:10 | disposition home or self-care (01) ==
LOC: SDC 07:05
PROVIDERS: ATTEND Otolaryngology Otolaryngology/Facial Plastic Surgery
DX: J34.3 Hypertrophy of nasal turbinates (principal); R09.81 Nasal congestion; I10 Essential (primary) hypertension; J45.909 Unspecified asthma, uncomplicated; J44.9 Chronic obstructive pulmonary disease, unspecified; G47.33 Obstructive sleep apnea (adult) (pediatric); K21.9 Gastro-esophageal reflux disease without esophagitis; E66.9 Obesity, unspecified; Z68.35 Body mass index [BMI] 35.0-35.9, adult; Z86.718 Personal history of other venous thrombosis and embolism; Z87.891 Personal history of nicotine dependence; Z79.899 Other long term (current) drug therapy

== ENCOUNTER → 2018-09-02 | Outpatient (CLI) | payer MEDICARE ==
[2018-09-02 08:23] LABS: BASOPHILS # (AUTO) 0.1 10^3/uL (0.0-0.1); BASOPHILS % (AUTO) 0 % (0-10); EOSINOPHILS # (AUTO) 0.5 10^3/uL (0.0-0.3); EOSINOPHILS % (AUTO) 4 % (0-10); HEMATOCRIT 45 % (40-54); HEMOGLOBIN 15.1 G/DL (13.3-17.7); LYMPHOCYTES # (AUTO) 1.6 X 10^3 (1.0-4.0); LYMPHOCYTES % (AUTO) 13 % (12-44); MEAN CORPUSCULAR HEMOGLOBIN 31 PG (25-34); MEAN CORPUSCULAR HGB CONC 34 G/DL (32-36); MEAN CORPUSCULAR VOLUME 91 FL (80-99); MEAN PLATELET VOLUME 9.4 FL (7.4-10.4); MONOCYTES # (AUTO) 1.3 X 10^3 (0.0-1.0); MONOCYTES % (AUTO) 11 % (0-12); NEUTROPHILS # (AUTO) 8.6 X 10^3 (1.8-7.8); NEUTROPHILS % (AUTO) 72 % (42-75); PLATELET COUNT 339 10^3/uL (130-400); RED CELL DISTRIBUTION WIDTH 12.9 % (10.0-14.5); WHITE BLOOD COUNT 11.9 10^3/uL (4.3-11.0)
[2018-09-02 08:53] LABS: ALANINE AMINOTRANSFERASE 32 U/L (0-55); ALBUMIN 3.8 GM/DL (3.2-4.5); ALKALINE PHOSPHATASE 131 U/L (40-136); BILIRUBIN,TOTAL 0.5 MG/DL (0.1-1.0); BUN/CREATININE RATIO 21; CALCIUM 10.1 MG/DL (8.5-10.1); CARBON DIOXIDE 24 MMOL/L (21-32); CHLORIDE 107 MMOL/L (98-107); CHOLESTEROL 158 MG/DL (< 200); CREATININE SERUM 0.92 MG/DL (0.60-1.30); GFR ESTIMATED > 60; GLUCOSE 98 MG/DL (70-105); HDL CHOLESTEROL 46 MG/DL (40-60); POTASSIUM 4.4 MMOL/L (3.6-5.0); SODIUM 142 MMOL/L (135-145); TOTAL PROTEIN 7.4 GM/DL (6.4-8.2); TRIGLYCERIDES 63 MG/DL (<150); VLDL CHOLESTEROL 13 MG/DL (5-40)
== END ==
LOC: LAB 07:56
PROVIDERS: ATTEND Internal Medicine
DX: E78.1 Pure hyperglyceridemia (principal); E78.00 Pure hypercholesterolemia, unspecified; E29.1 Testicular hypofunction
CPT/HCPCS: 36415; 80053; 80061; 84403; 84443; 85025